=== PATIENT | male | born 1950 | race Caucasian/White ===

== ENCOUNTER 2017-06-24 17:59 | Emergency (ER) | payer OTHER ==
[~2017-06-24] VITALS: Ht 175.3 cm; Wt 65.0 kg
[2017-06-24 18:00] VITALS: BP 136/76; PULSE 114; RESP 20; TEMP 98.6; O2SAT 100
[2017-06-24] MEDS ORDERED: TAMS5CAP PO (19:41)
[2017-06-24] MEDS ORDERED: SODIUM CHLORIDE 0.9% FLUSH 10 ML FLUSH IVF PRN (19:45)
[2017-06-24 20:00] VITALS: O2SAT 99
[2017-06-24] MEDS ORDERED: SODIUM CHLOR 0.9% 250 ML INJ 250 ML IV ONE (20:00)
--- NOTE | 2017-06-24 20:01 | PD ---
HPI Chief Complaint: Abnormal Results Time Seen by Provider: 19:38 Travel History International Travel<30 days: No Contact w/Intl Traveler<30days: No Traveled to known affect area: No History of Present Illness HPI 66 y/o male presents with hematuria for the past month. He states that he has a bladder mass that he supposed to have surgery on with Dr. Greenberg soon but was told to come here given he had a low blood level. His states that his hemoglobin was 8.2. He notes that he feels tired and get short of breath when he walks. He states he's also been having to take medication to help him go to the bathroom because he is constipated. He denies any other specific concurrent complaints. Location: generalized Quality: low Severity: 8.2 Context: bladder mass Modifying Factors: worse with movement Associated sign and symptoms: Generally weak, short of breath PFSH Social History Tobacco Use: No (unknown) Allergies-Medications (Allergen,Severity, Reaction): Coded Allergies: ibuprofen (Verified Allergy, Unknown, 06/24/17) Reported Meds & Prescriptions Reported Meds & Active Scripts Active Reported Flomax (Tamsulosin HCl) 0.4 Mg Cap 0.4 Mg PO HS Review of Systems Except as stated in HPI: all other systems reviewed are Neg Physical Exam Narrative GENERAL: Well-nourished, well-developed patient. SKIN: Warm and dry. pale HEAD: Normocephalic and atraumatic. EYES: No injection or drainage. ENT: No nasal drainage noted. NECK: Supple, trachea midline. CARDIOVASCULAR: Regular rate and rhythm RESPIRATORY: no increased effort. No accessory muscle use. GASTROINTESTINAL: Abdomen soft, non-tender, nondistended. NEUROLOGICAL: Awake and alert. moves all extremities and sensory grossly within normal limits. Normal speech. Data Data Last Documented VS Vital Signs Date Time Temp Pulse Resp B/P (MAP) Pulse Ox O2 Delivery O2 Flow Rate FiO2 06/25/17 01:27 94 18 120/82 (95) 100 Room Air 06/25/17 00:44 98.3 Orders Orders Basic Metabolic Panel (Bmp) (06/24/17 19:39) Complete Blood Count With Diff (06/24/17 19:39) Prothrombin Time / Inr (Pt) (06/24/17 19:39) Act Partial Throm Time (Ptt) (06/24/17 19:39) Type And Screen (06/24/17 19:39) Ecg Monitoring (06/24/17 19:39) Iv Access Insert/Monitor (06/24/17 19:39) Oximetry (06/24/17 19:39) Sodium Chloride 0.9% Flush (Ns Flush) (06/24/17 19:45) Red Blood Cells (Rbc) (06/24/17 19:47) Blood Product Administration (06/24/17 19:47) Sodium Chlor 0.9% 250 Ml Inj (Ns 250 Ml (06/24/17 20:00) Urinalysis - C+S If Indicated (06/24/17 19:49) Urine Culture (06/24/17 20:45) Ed Discharge Order (06/25/17 02:54) Labs Laboratory Tests Test 06/24/17 19:50 06/24/17 20:45 White Blood Count 8.9 TH/MM3 Red Blood Count 3.18 MIL/MM3 Hemoglobin 8.4 GM/DL Hematocrit 26.5 % Mean Corpuscular Volume 83.3 FL Mean Corpuscular Hemoglobin 26.5 PG Mean Corpuscular Hemoglobin Concent 31.8 % Red Cell Distribution Width 18.0 % Platelet Count 450 TH/MM3 Mean Platelet Volume 6.7 FL Neutrophils (%) (Auto) 70.6 % Lymphocytes (%) (Auto) 17.5 % Monocytes (%) (Auto) 8.6 % Eosinophils (%) (Auto) 1.9 % Basophils (%) (Auto) 1.4 % Neutrophils # (Auto) 6.3 TH/MM3 Lymphocytes # (Auto) 1.6 TH/MM3 Monocytes # (Auto) 0.8 TH/MM3 Eosinophils # (Auto) 0.2 TH/MM3 Basophils # (Auto) 0.1 TH/MM3 CBC Comment DIFF FINAL Differential Comment Prothrombin Time 10.8 SEC Prothromb Time International Ratio 1.1 RATIO Activated Partial Thromboplast Time 28.2 SEC Blood Urea Nitrogen 16 MG/DL Creatinine 1.10 MG/DL Random Glucose 119 MG/DL Calcium Level 8.7 MG/DL Sodium Level 136 MEQ/L Potassium Level 3.9 MEQ/L Chloride Level 102 MEQ/L Carbon Dioxide Level 28.0 MEQ/L Anion Gap 6 MEQ/L Estimat Glomerular Filtration Rate 67 ML/MIN Urine Color RED Urine Turbidity HAZY Urine pH 5.5 Urine Specific [place] 1.028 Urine Protein 100 mg/dL Urine Glucose (UA) NEG mg/dL Urine Ketones TRACE mg/dL Urine Occult Blood LARGE Urine Nitrite NEG Urine Bilirubin NEG Urine Urobilinogen 2.0 MG/DL Urine Leukocyte Esterase TRACE Urine RBC /hpf Urine WBC 25 /hpf Urine Bacteria OCC /hpf Urine Mucus FEW /lpf Microscopic Urinalysis Comment CULTURE INDICATED MDM Medical Decision Making Medical Screen Exam Complete: Yes Emergency Medical Condition: Yes Medical Record Reviewed: Yes (pmh confirmed) Interpretation(s) CBC & BMP Diagram 06/24/17 19:50 Calcium Level 8.7 ua with hematuria, given amount of blood will not start antibiotics as small amount of white blood cells are likely related to that and not an active infection-can follow culture Differential Diagnosis anemia, renal failure, uti Narrative Course will check labs, transfuse one unit and reevaluate Labs show anemia. We'll give 1 unit given symptomatic and reassess Patient observed for 3 hours post transfusion and without any transfusion reaction. Vitals stable. Patient wanting to go. Given return instructions Physician Communication Physician Communication dr greenberg states he will see patient in ed as he is here but no need to follow dr greenberg states can give one unit and discharge patient, will follow Diagnosis Primary Impression: Anemia Qualified Codes: D64.9 - Anemia, unspecified Additional Impressions: Hematuria Qualified Codes: R31.9 - Hematuria, unspecified Bladder mass Patient Instructions: General Instructions Additional Instructions: return as needed, follow with dr greenberg as scheduled Med/Other Pt SpecificInfo: No Change to Meds Disposition: 01 DISCHARGE HOME Condition: Stable Yvonne Bal MD Jun 24, 2017 20:01
[2017-06-24 20:12] LABS: AUTOMATED NEUTROPHIL # 6.3 TH/MM3 (1.8-7.7); BASOPHIL # 0.1 TH/MM3 (0-0.2); BASOPHIL % 1.4 % (0.0-2.0); EOSINOPHIL # 0.2 TH/MM3 (0-0.4); EOSINOPHIL % 1.9 % (0.0-4.0); HEMATOCRIT 26.5 % (39.0-51.0); HEMO FLAGS DIFF FINAL; LYMPH % 17.5 % (9.0-44.0); LYMPHOCYTE # 1.6 TH/MM3 (1.0-4.8); MEAN CELL VOLUME 83.3 FL (80.0-100.0); MEAN CORPUSCULAR HEMOGLOBIN 26.5 PG (27.0-34.0); MEAN CORPUSCULAR HGB CONC 31.8 % (32.0-36.0); MONO % 8.6 % (0.0-8.0); NEUT % 70.6 % (16.0-70.0); PLATELET COUNT 450 TH/MM3 (150-450); RED BLOOD COUNT 3.18 MIL/MM3 (4.50-5.90); WHITE BLOOD COUNT 8.9 TH/MM3 (4.0-11.0)
[2017-06-24 20:21] LABS: APTT (PATIENT) 28.2 SEC (24.3-30.1); INTERNATIONAL NORMALIZED RATIO 1.1 RATIO; PROTHROMBIN TIME - PATIENT 10.8 SEC (9.8-11.6)
[2017-06-24 20:26] LABS: POTASSIUM 3.9 MEQ/L (3.5-5.1)
[2017-06-24 22:15] LABS: BACTERIA, URINE OCC /hpf; BLOOD, URINE LARGE (NEG); COMMENT (UR) CULTURE INDICATED; CULTURE IF INDICATED CULTURE INDICATED; GLUCOSE,URINE NEG (NEG); KETONE, URINE TRACE mg/dL (NEG); MUCUS URINE FEW /lpf (OCC); NITRITE,URINE NEG (NEG); PH, URINE 5.5 (5.0-8.5)
[2017-06-24 22:16] LABS: URINE COLOR RED (YELLW/STRAW)
[2017-06-24 22:18] VITALS: BP 114/75; PULSE 96; RESP 18; TEMP 98.5; O2SAT 96
[2017-06-24 22:30] VITALS: BP 109/67; PULSE 94; RESP 18; TEMP 98.7
[2017-06-24 23:06] VITALS: BP 125/72; PULSE 100; RESP 18; O2SAT 100
[2017-06-25 00:32] VITALS: BP 125/71; PULSE 96; RESP 18; TEMP 98.2; O2SAT 99
[2017-06-25 00:44] VITALS: BP 125/71; PULSE 97; RESP 19; TEMP 98.3
[2017-06-25 01:27] VITALS: BP 120/82; PULSE 94; RESP 18; O2SAT 100
== END 2017-06-25 03:19 | disposition home or self-care (01) ==
LOC: NEPC 17:59
DX: D64.9 Anemia, unspecified (principal); R31.9 Hematuria, unspecified; N32.9 Bladder disorder, unspecified; B96.89 Other specified bacterial agents as the cause of diseases classified elsewhere; Z88.6 Allergy status to analgesic agent; Z79.899 Other long term (current) drug therapy
CPT/HCPCS: 36430; 80048; 81001; 85025; 85610; 85730; 86850; 86900; 86901; 86920; 87086; 96360; 99284; J7050; P9016

== ENCOUNTER 2017-09-19 06:44 | Day surgery (SDC) | payer OTHER ==
[2017-09-19] VITALS (7 sets, daily range): BP systolic 126–152; BP diastolic 71–86; PULSE 61–84; RESP 18–20; TEMP 97.4–97.6; O2SAT 93–98
[~2017-09-19] VITALS: Ht 177.8 cm; Wt 60.5 kg
[~2017-09-19 06:44] MED LIST: TAMS5CAP PO
[2017-09-19] MEDS ORDERED: ALEV220T14 PO (07:18)
[2017-09-19] MEDS ORDERED: OXYB5TAB8 PO (07:18)
[2017-09-19 07:55] LABS: AUTOMATED NEUTROPHIL # 5.6 TH/MM3 (1.8-7.7); BASOPHIL # 0.1 TH/MM3 (0-0.2); BASOPHIL % 1.2 % (0.0-2.0); EOSINOPHIL # 0.3 TH/MM3 (0-0.4); EOSINOPHIL % 2.9 % (0.0-4.0); HEMATOCRIT 31.8 % (39.0-51.0); HEMOGLOBIN 10.2 GM/DL (13.0-17.0); LYMPH % 23.9 % (9.0-44.0); LYMPHOCYTE # 2.1 TH/MM3 (1.0-4.8); MEAN CORPUSCULAR HEMOGLOBIN 22.7 PG (27.0-34.0); MEAN PLATELET VOLUME 6.4 FL (7.0-11.0); MONO % 9.1 % (0.0-8.0); MONOCYTE # 0.8 TH/MM3 (0-0.9); NEUT % 62.9 % (16.0-70.0); PLATELET COUNT 349 TH/MM3 (150-450); RED BLOOD COUNT 4.48 MIL/MM3 (4.50-5.90); RED CELL DISTRIBUTION WIDTH 22.8 % (11.6-17.2); WHITE BLOOD COUNT 8.9 TH/MM3 (4.0-11.0)
[2017-09-19] MEDS ORDERED: VANCOMYCIN 1000 MG/NS 250 ML - implanted port/tunneled catheter IV SCH ×2 (08:00)
[2017-09-19] MEDS ORDERED: ceFAZolin 2 GM PREMIX 50 ML - implanted port/tunneled catheter insertion IV SCH (08:00)
[2017-09-19] MEDS ORDERED: SODIUM CHLORIDE 0.9% 1000 ML IV SCH (08:00)
[2017-09-19] MEDS ORDERED: POVIDONE IODINE 5% (ANTISEPSIS KIT) 4 APPLICATIONS EACH NARE SCH (08:00)
[2017-09-19] MEDS ORDERED: CHLORHEXIDINE GLUCONATE 2 % 1 PACK (2 CLOTHS) TOPICAL SCH (08:00)
[2017-09-19 08:05] LABS: INTERNATIONAL NORMALIZED RATIO 1.1 RATIO; PROTHROMBIN TIME - PATIENT 10.7 SEC (9.8-11.6)
[2017-09-19 08:41] LABS: ACANTHOCYTES OCC (NORMAL); OVALOCYTES 1+ (NORMAL)
[2017-09-19] MEDS ORDERED: MIDAZOLAM HCL 5 MG/5 ML VIAL ONE (08:49)
[2017-09-19] MEDS ORDERED: fentaNYL CITRATE 250 MCG/5 ML AMP ONE (08:49)
[2017-09-19] MEDS ORDERED: LIDOCAINE 1%/EPINEPHrine 1:100,000 SOLN 30 ML VIAL ONE (08:55)
--- NOTE | 2017-09-19 09:53 | PD.RAD ---
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
[2017-09-19] MEDS ORDERED: SODIUM CHLORIDE 0.9% FLUSH 10 ML FLUSH IVF PRN (10:00)
--- NOTE | 2017-09-19 12:43 | RADRPT ---
EXAM DATE/TIME: 09/19/2017 08:45 [facility] COMPARISON: No previous studies available for comparison. INDICATIONS : Patient presents with bladder cancer in need of port placment for treatment. MEDICAL HISTORY : Hematuria COPD Bladder Cancer BPH Anemia SURGICAL HISTORY : Cystoscopy TURBT Cardiac Cath ENCOUNTER: Initial ACUITY: 4-6 months PAIN SCORE: 0/10 LOCATION: N/A FLUORO TIME: 0.5 minutes IMAGE SERIES: 1 SEDATION TIME: 30 minutes ACCESS: Right internal jugular vein SEDATION: 1.) 3 mg midazolam (Versed) IV 2.) 150 mcg fentanyl (Sublimaze) IV Prophylactic antibiotics were administered with appropriate pre-procedure timing. Vancomycin within 2 hours of procedure, Ancef (or alternative) within 1 hour of procedure. DEVICE: 1. 8 Pashto single lumen Bard Power Port PROCEDURE : 1. Continuous pulse oximetry and EKG monitoring. 2. Intravenous conscious sedation. 3. Ultrasound guidance for venous access. 4. Fluoroscopic guided implantable central venous port placement. The patient was placed supine. The neck was prepped in sterile fashion. Full sterile technique was u sed, including cap, mask, sterile gloves and gown, and a large sterile sheet. Hand hygiene and 2% ch lorhexidine Betadine was utilized per protocol for cutaneous antisepsis with appropriate dry time for site. Sterile gel and sterile probe cover were utilized for ultrasound guidance. The skin and sub cutaneous tissues were infiltrated with local anesthetic solution. Under direct ultrasound guidance, central venous access was accomplished in the targeted vessel. The ultrasound images depicting access guidance were stored and saved to PACS for permanent record. A s ubcutaneous pocket was created using blunt dissection. The port was introduced to the pocket. The c atheter tubing was fed through a subcutaneous tunnel to the venotomy site. The catheter tubing was c ut to a suitable length and then was introduced through a valved Peel-Away sheath and positioned with catheter tubing tip at the cavo-atrial junction level. The pocket incision was closed with subcutic ular Vicryl suture. Steri-Strips were applied. The port was flushed and locked with heparin solutio n per protocol. Sterile dressing was applied to the site. The patient tolerated the procedure well. Conscious sedation was performed with the prescribed dosages and duration as above in the presence of an independent trained radiology nurse to assist in the monitoring of the patient. EKG and oximetry remained stable throughout the procedure. The patient tolerated the procedure well and there were no complications. The patient was sent to post anesthesia recovery in stable condition. CONCLUSION: Uncomplicated ultrasound and fluoroscopic guided implanted central venous port catheter placement as described in detail above. An 8 Pashto Power port was placed. Cyrus Dykes MD on September 19, 2017 at 12:42 Board Certified Radiologist. This report was verified electronically.
== END 2017-09-19 12:20 | disposition home or self-care (01) ==
LOC: HROP 06:44 → HRIP 06:45 → HROP 12:20
PROVIDERS: ATTEND Internal Medicine
DX: C67.9 Malignant neoplasm of bladder, unspecified (principal); C78.00 Secondary malignant neoplasm of unspecified lung; D64.9 Anemia, unspecified; N40.0 Benign prostatic hyperplasia without lower urinary tract symptoms; R31.9 Hematuria, unspecified; J44.9 Chronic obstructive pulmonary disease, unspecified; Z01.818 Encounter for other preprocedural examination
CPT/HCPCS: 36561; 76937; 77001; 85025; 85610; 85730; 99152; 99153; C1788; J0690; J1642; J2250; J3010; J7030

== ENCOUNTER 2018-02-19 09:36 | Inpatient (IN) ==
[2018-02-19 10:29] LABS: Baso % (Auto) 0.1 % (0.0-2.0); Eos # (Auto) 0.1 th/mm3 (0.0-0.4); Eos % (Auto) 0.2 % (0.0-4.0); Lymph # (Auto) 0.6 th/mm3 (1.0-4.8); Lymph % (Auto) 2.4 % (9.0-44.0); Mean Corpuscular Hemoglobin 35.1 pg (27.0-34.0); Mean Corpuscular Volume 100.1 fL (80.0-100.0); Mean Platelet Volume 7.2 fL (7.0-11.0); Mono # (Auto) 0.1 th/mm3 (0.0-0.9); Mono % (Auto) 0.2 % (0.0-8.0); Neut # (Auto) 24.7 th/mm3 (1.8-7.7); Neut % (Auto) 97.1 % (16.0-70.0); Red Blood Count 1.96 mil/mm3 (4.50-5.90); Red Cell Distribution Width 21.3 % (11.6-17.2); White Blood Count 25.5 th/mm3 (4.0-11.0)
[2018-02-19 10:41] LABS: Hematocrit 19.6 % (39.0-51.0); Hemoglobin 6.9 gm/dL (13.0-17.0); Platelet Count 11 th/mm3 (150-450)
[2018-02-19 10:53] LABS: Alanine Aminotransferase 9 U/L (12-78); Alkaline Phosphatase 70 U/L (45-117); Anion Gap 11 meq/L (5-15); Aspartate Aminotransferase 12 U/L (15-37); Blood Urea Nitrogen 12 mg/dL (7-18); Calcium 5.6 mg/dL (8.5-10.1); Chloride 112 meq/L (98-107); Glomerular Filtration Rate Greater Than 89 mL/min (>89); Glucose,Random 88 mg/dL (74-106); Sodium 143 meq/L (136-145); Total Protein 4.4 g/dL (6.4-8.2)
--- NOTE | 2018-02-19 10:54 | ED ---
HPI General Chief complaint: Urogenital-Male Stated complaint: Trouble Urinating/Clots coming out of penis Time Seen by Provider: 02/19/18 09:53 Source: patient and family Mode of arrival: ambulatory Limitations: no limitations History of Present Illness HPI narrative: Patient is a 67-year-old male with history of bladder cancer, last chemo was Tuesday, who comes in complaining of inability to urinate. He says he last urinated at midnight and he then passed a large blood clot. He says since then he really has not been able to pass any urine. He complains of pain to his bladder. He says he has had chills, but no fever. He has been receiving Neupogen, he was supposed to receive a dose today, but did not have it. He denies any chest pain or shortness of breath. He says he had a procedure done with urology on Tuesday to look for any more tumors in his bladder. He has been on Cipro since then. Severity is moderate. Related Data Home Medications Medication Instructions Recorded Confirmed Neupogen 02/19/18 Zyrtec 02/19/18 enoxaparin [Lovenox] 60 mg SUB-Q Q12H 02/19/18 02/19/18 ondansetron HCl [Zofran] 4 mg PO Q6-8H PRN 02/19/18 02/19/18 oxybutynin chloride 02/19/18 oxycodone-acetaminophen [Percocet] 1 tab PO Q4-6H PRN 02/19/18 02/19/18 tamsulosin [Flomax] 0.4 mg PO DAILY 02/19/18 02/19/18 Allergies Allergy/AdvReac Type Severity Reaction Status Date / Time ibuprofen Allergy Unknown Arrhythmias Verified 02/19/18 09:38 Review of Systems Except as stated in HPI: all other systems reviewed are negative Constitutional Reports chills and Denies fever(s) ENT Denies dizziness Cardiovascular Denies chest pain and Denies dyspnea Respiratory Denies cough Gastrointestinal Reports abdominal pain, Denies nausea and Denies vomiting Genitourinary Reports hematuria and Reports difficulty urinating Musculoskeletal Denies myalgias and Denies arthralgias Integumentary/Breasts Denies change in pigmentation Neurologic Denies frequent falls and Denies focal weakness [facility] Medical History Medical History Bladder cancer (Acute) Social History Social History Substance History: No History of Abuse Smoking Status: Current every day smoker Tobacco Type: Cigarettes How Often Do You Have a Drink Containing Alcohol: Never Recent Travel in [facility] within the Last 8 Weeks: No Recent Out of Country Travel within the Last 8 Weeks: No Immunization History Tetanus Immunization: Unsure Hx Influenza Vaccine This Season: No Exam Narrative Exam Narrative: GENERAL: Awake and alert, in no acute distress. SKIN: Focused skin assessment warm/dry. No wounds or signs of infection. HEAD: Atraumatic. Normocephalic. EYES: Pupils equal and round. No scleral icterus. ENT: Mucous membranes pink and moist. NECK: Trachea midline. No JVD. CARDIOVASCULAR: Regular rate and rhythm. No murmur appreciated. RESPIRATORY: No accessory muscle use. Clear to auscultation. Breath sounds equal bilaterally. GASTROINTESTINAL: Bladder distended and tender to palpation. MUSCULOSKELETAL: No obvious deformities. No clubbing. No cyanosis. No edema. NEUROLOGICAL: Awake and alert. No obvious cranial nerve deficits. Motor grossly within normal limits. Normal speech. PSYCHIATRIC: Appropriate mood and affect; insight and judgment normal. Course Hospital Course: IV established, labs sent. Starks catheter placed. Reevaluation(s) Reevaluation #1: Patient is feeling better after Starks catheter placed. It is draining, but it is straight blood. Hemoglobin is 6.9 and platelet count is 11. Transfusions ordered. Time: 10:47 Initial Documented Vital Signs Temperature 97.8 F 02/19/18 09:39 Pulse Rate 118 H 02/19/18 09:39 Respiratory Rate 18 02/19/18 09:39 Blood Pressure 137/79 02/19/18 09:39 Pulse Oximetry 100 02/19/18 09:39 Last Documented Vital Signs Temperature 97.8 F 02/19/18 09:39 Pulse Rate 84 02/19/18 11:20 Respiratory Rate 20 02/19/18 11:20 Blood Pressure 124/72 02/19/18 11:20 Pulse Oximetry 97 02/19/18 11:20 Medical Decision Making MDM Narrative Medical decision making narrative: Patient is a 67-year-old male with history who comes in due to difficulty urinating. Exam shows a distended, tender bladder. Starks catheter placed this is draining blood. Labs sent show a hemoglobin of 6.9, platelet count of 11. White blood cell count is 25. Patient is receiving Neupogen, which could account for the elevated white blood cell count. However he has been having chills, given a dose of antibiotics. Transfusions ordered for packed red blood cells and platelets. Potassium was also low at 2.8, this was replaced. I spoke with oncology, Dr. Martin, who advises transfusions and holding Lovenox. He will see the patient. Patient will be admitted for further management. Differential Diagnosis Differential Diagnosis: Urinary obstruction versus hematuria versus UTI versus infection Medical Records Medical records reviewed: Yes I reviewed the patient's medical records. Lab Data Lab results reviewed: Yes I reviewed the patient's lab results. Result diagrams: 02/19/18 10:26 02/19/18 10:26 Lab Results 02/19/18 02/19/18 02/19/18 Range/Units 10:26 10:26 11:05 CBC w Diff Slide review pending WBC 25.5 H (4.0-11.0) th/mm3 RBC 1.96 L (4.50-5.90) mil/mm3 Hgb 6.9 L* (13.0-17.0) gm/dL Hct 19.6 L* (39.0-51.0) % MCV 100.1 H (80.0-100.0) fL MCH 35.1 H (27.0-34.0) pg MCHC 35.0 (32.0-36.0) % RDW 21.3 H (11.6-17.2) % Plt Count 11 L* D (150-450) th/mm3 MPV 7.2 (7.0-11.0) fL Neut % (Auto) 97.1 H (16.0-70.0) % Lymph % (Auto) 2.4 L (9.0-44.0) % [place] % (Auto) 0.2 (0.0-8.0) % Eos % (Auto) 0.2 (0.0-4.0) % Baso % (Auto) 0.1 (0.0-2.0) % Neut # (Auto) 24.7 H (1.8-7.7) th/mm3 Lymph # (Auto) 0.6 L (1.0-4.8) th/mm3 [place] # (Auto) 0.1 (0.0-0.9) th/mm3 Eos # (Auto) 0.1 (0.0-0.4) th/mm3 Baso # (Auto) 0.0 (0.0-0.2) th/mm3 WBC Differential Manual diff final Seg Neuts % (Manual) 88 H (16-70) % Band Neuts % (Manual) 11 H (0-6) % Lymphocytes % (Manual) 1 L (9-44) % Abs Neuts (Manual) 25.2 H (1.8-7.7) th/mm3 Differential Comment . Dohle Bodies Present H (None) Platelet Estimate Rare L (Normal) Platelet Morphology Normal (Normal) RBC Morphology Normal (Normal) Rouleaux Present H (None) Sodium 143 (136-145) meq/L Potassium 2.8 L* (3.5-5.1) meq/L Chloride 112 H (98-107) meq/L Carbon Dioxide 20.0 L (21.0-32.0) meq/L Anion Gap 11 (5-15) meq/L BUN 12 (7-18) mg/dL Creatinine 0.63 (0.60-1.30) mg/dL Estimated GFR Greater than 89 (>89) mL/min Random Glucose 88 (74-106) mg/dL Calcium 5.6 L* (8.5-10.1) mg/dL Prot Corrected Calcium 6.8 L* (8.5-10.1) mg/dL Total Bilirubin 0.3 (0.2-1.0) mg/dL AST 12 L (15-37) U/L ALT 9 L (12-78) U/L Alkaline Phosphatase 70 (45-117) U/L Total Protein 4.4 L (6.4-8.2) g/dL Albumin 2.0 L (3.4-5.0) g/dL MTS Gel Crossmatch See Detail Discharge Plan Physicians Team ED Provider: Lesa Vincent Primary Care Provider: Yunier Joseph Rxs /Orders / Referrals /Forms Prescriptions: No Action ondansetron HCl [Zofran] 4 mg Tablet 4 mg PO Q6-8H PRN (Reason: Nausea) RF: 0 oxycodone-acetaminophen [Percocet] 5-325 mg Tablet 1 tab PO Q4-6H PRN (Reason: Nausea) RF: 0 tamsulosin [Flomax] 0.4 mg Capsule,Extended Release 24hr 0.4 mg PO DAILY RF: 0 enoxaparin [Lovenox] 60 mg/0.6 mL Syringe 60 mg SUB-Q Q12H RF: 0 Neupogen RF: 0 Zyrtec RF: 0 oxybutynin chloride RF: 0 Discharge Interventions Interventions: Vital Signs Last Done: 02/19/18 11:20 Status ED Status: With Doctor
[2018-02-19 10:57] LABS: Potassium 2.8 meq/L (3.5-5.1)
[2018-02-19] MEDS ORDERED: Sodium Chlor 0.9% Inj 250 ML IV.SIG SCH (11:00)
[2018-02-19 11:03] LABS: Dohle Bodies Present; Lymphocytes 1 % (9-44); RBC Morphology Normal (Normal); Rouleaux Present
[2018-02-19 11:04] LABS: Platelet Estimate Rare (Normal); Platelet Morphology Normal (Normal)
[2018-02-19] MEDS ORDERED: Potassium Chlor 10 mEq Premix 10 MEQ/100 ML PIGGYBACK IV.SIG ONE (11:30)
--- NOTE | 2018-02-19 11:33 | XR ---
EXAM DATE: 02/19/2018 11:22 AM EDT AGE/SEX: 67 years / Male INDICATIONS: Cough CLINICAL DATA: This is the patient's initial encounter. Patient reports that signs and symptoms have been present for 1 day and indicates a pain score of 0/10. MEDICAL/SURGICAL HISTORY: . Hematuria COPD Bladder Cancer BPH Anemia . Cystoscopy TURBT Cardi ac Cath,Port COMPARISON: POI, XR CHEST PA AND LAT, 01/24/2017. . FINDINGS: The lungs are clear without infiltrate, nodule, or mass. There is no appreciable pleural effusion fo r technique. Heart and mediastinum are unremarkable. Right IJ [id number] is present with tip ove rlapping the expected region of the SVC. CONCLUSION: No acute cardiopulmonary disease. Electronically signed by: Jeannine Velasquez MD 02/19/2018 11:31 AM EDT
[2018-02-19] MEDS ORDERED: Temazepam 15 MG Capsule PO PRN (12:06)
[2018-02-19] MEDS ORDERED: Zolpidem Tartrate 5 MG Tablet PO PRN (12:06)
--- NOTE | 2018-02-19 12:48 | P.HP ---
History of Present Illness Primary Care Physician: Yunier Joseph MD History of Present Illness: This is a 67-year-old male patient with a known diagnosis of stage IV urothelial cancer who presents to the ED with anemia, severe thrombocytopenia, urinary retention and hematuria. Patient underwent cystoscopy by Dr. Zhao on Tuesday 02/13 to assess for any residual disease, for which his Lovenox was on hold. Patient was sent home with FC and a prescription for Cipro x 3 days. Has been doing well with only scant blood in urine. Unfortunately, around 2330 last evening on 02/19 he complaints of worsening hematuria and passing a large clot with associated urinary retention and pain in his bladder. Patient denies any recent fevers, cough, shortness of breath, nausea, vomiting, diarrhea, dysuria, black or blood in stools. Last BM was yesterday. He does admit to a good appetite and has been eating well. At the time of assessment patient is lying in bed comfortably with at bedside. Starks catheter is presently draining leonor red blood with no presence of clots at this time. I spoke with Dr. Zhao who would like the Starks cath to be changed to a 22 or 24 japanese cath and CBI to be started. Oncologist has also been consulted. Upon presentation patient has leukocytosis with WBC 25.5 and left band shift, severe anemia and thrombocytopenia, hemoglobin 56.9/hematocrit 19.6/platelets 11 as well as multiple electrolyte abnormalities including K 2.8, mag 1.0, and PCC 6.8. Inpatient Certification: I certify that the inpatient services were ordered in accordance with Medicare regulations governing the order. This includes certification that hospital inpatient services are reasonable and necessary and in the case of services not specified as inpatient-only under 42 CFR 419.22(n), that they are appropriately provided as inpatient services in accordance to with the 2-midnight benchmark under 43 CFR 412.3(e) Estimated Total Length of Stay (Days): 4 Plans for Post Hospital Care: Not yet determined PMFSH - History History Provided By: Patient - Medical History Medical History: Medical History (Last Reviewed 02/19/18 @ 11:20 by Lesa Vincent MD) Bladder cancer - Tobacco History Tobacco Use In Past 30 Days: Yes Smoking Status: Current every day smoker Tobacco Type: Cigarettes - Alcohol History How Often Do You Have a Drink Containing Alcohol: Never - Substance Use History Substance History: No History of Abuse - Travel History Recent Travel in the [place] Within the Last 8 Weeks: No Recent Travel Out of the Country Within the Last 8 Weeks: No - Immunization History Tetanus Immunization: Unsure Hx Influenza Vaccine This Season: No Medications and Allergies Active Medications: Active Medications Sodium Chloride (Ns Inj) 250 mls @ 15 mls/hr IV.SIG ONCE HARMAN Stop: 02/20/18 03:39 Calcium Gluconate 2 gm/ Sodium (Chloride) 120 mls @ 120 mls/hr IV.SIG ONCE ONE Stop: 02/19/18 13:44 Lactulose (Lactulose Liq) 30 ml PO DAILY PRN PRN Reason: SEVERE CONSITIPATION Tamsulosin HCl (Flomax) 0.4 mg PO DAILY HARMAN Temazepam (Restoril) 15 mg PO HS PRN PRN Reason: INSOMNIA Zolpidem Tartrate (Ambien) 5 mg PO HS PRN PRN Reason: INSOMNIA Allergies Allergy/AdvReac Type Severity Reaction Status Date / Time ibuprofen Allergy Unknown Arrhythmias Verified 02/19/18 09:38 Home Medications Medication Instructions Recorded Confirmed Type Neupogen 02/19/18 History Zyrtec 02/19/18 History enoxaparin [Lovenox] 60 mg SUB-Q Q12H 02/19/18 02/19/18 History ondansetron HCl [Zofran] 4 mg PO Q6-8H PRN 02/19/18 02/19/18 History oxybutynin chloride 02/19/18 History oxycodone-acetaminophen [Percocet] 1 tab PO Q4-6H PRN 02/19/18 02/19/18 History tamsulosin [Flomax] 0.4 mg PO DAILY 02/19/18 02/19/18 History Exam Vital signs: Vital Signs 02/19/18 09:39 02/19/18 11:20 02/19/18 12:07 Temperature 97.8 F Pulse Rate 118 H 84 79 Respiratory Rate 18 20 20 Blood Pressure 137/79 124/72 124/70 Pulse Oximetry 100 97 Intake & Output 02/18/18 02/19/18 02/19/18 18:59 06:59 18:59 Weight 69.4 kg Results - Labs CBC & Chem 7: 02/19/18 10:26 02/19/18 10:26 Labs: Laboratory Results - last 24 hr 02/19/18 02/19/18 02/19/18 10:26 10:26 11:05 CBC w Diff Slide review pending WBC 25.5 H RBC 1.96 L Hgb 6.9 L* Hct 19.6 L* MCV 100.1 H MCH 35.1 H MCHC 35.0 RDW 21.3 H Plt Count 11 L* D MPV 7.2 Neut % (Auto) 97.1 H Lymph % (Auto) 2.4 L [place] % (Auto) 0.2 Eos % (Auto) 0.2 Baso % (Auto) 0.1 Neut # (Auto) 24.7 H Lymph # (Auto) 0.6 L [place] # (Auto) 0.1 Eos # (Auto) 0.1 Baso # (Auto) 0.0 WBC Differential Manual diff final Seg Neuts % (Manual) 88 H Band Neuts % (Manual) 11 H Lymphocytes % (Manual) 1 L Abs Neuts (Manual) 25.2 H Differential Comment . Dohle Bodies Present H Platelet Estimate Rare L Platelet Morphology Normal RBC Morphology Normal Rouleaux Present H Sodium 143 Potassium 2.8 L* Chloride 112 H Carbon Dioxide 20.0 L Anion Gap 11 BUN 12 Creatinine 0.63 Estimated GFR Greater than 89 Random Glucose 88 Calcium 5.6 L* Prot Corrected Calcium 6.8 L* Total Bilirubin 0.3 AST 12 L ALT 9 L Alkaline Phosphatase 70 Total Protein 4.4 L Albumin 2.0 L MTS Gel Crossmatch See Detail - Imaging Impressions Chest X-Ray 02/19/18 10:48 CONCLUSION: No acute cardiopulmonary disease. Caprini VTE Risk Assessment Caprini VTE Risk Assessment: Moderate/High Risk (score >= 2) Caprini Risk Assessment Model: Point Value = 1 Point Value = 2 Point Value = 3 Point Value = 5 Age 41-60 Minor surgery BMI > 25 kg/m2 Swollen legs Varicose veins or History of unexplained or recurrent spontaneous Oral contraceptives or hormone replacement Sepsis (< 1 month) Serious lung disease, including pneumonia (< 1 month) Abnormal pulmonary function Acute myocardial infarction Congestive heart failure (< 1 month) History of inflammatory bowel disease Medical patient at bed rest Age 61-74 Arthroscopic surgery Major open surgery (> 45 min) Laparoscopic surgery (> 45 min) Malignancy Confined to bed (> 72 hours) Immobilizing plaster cast Central venous access Age >= 75 History of VTE Family history of VTE Factor V Leiden Prothrombin [id number] Lupus anticoagulant Anticardiolipin antibodies Elevated serum homocysteine Heparin-induced thrombocytopenia Other congenital or acquired thrombophilia Stroke (< 1 month) Elective arthroplasty Hip, pelvis, or leg fracture Acute spinal cord injury (< 1 month) Prophylaxis Regimen: Total Risk Factor Score Risk Level Prophylaxis Regimen 0-1 Low Early ambulation 2 Moderate Order ONE of the following: *Sequential Compression Device (SCD) *Heparin 5000 units SQ BID 3-4 Higher Order ONE of the following medications: *Heparin 5000 units SQ TID *Enoxaparin/Lovenox 40 mg SQ daily (WT < 150 kg, CrCl > 30 mL/min) *Enoxaparin/Lovenox 30 mg SQ daily (WT < 150 kg, CrCl > 10-29 mL/min) *Enoxaparin/Lovenox 30 mg SQ BID (WT < 150 kg, CrCl > 30 mL/min) AND/OR *Sequential Compression Device (SCD) 5 or more Highest Order ONE of the following medications: *Heparin 5000 units SQ TID (Preferred with Epidurals) *Enoxaparin/Lovenox 40 mg SQ daily (WT < 150 kg, CrCl > 30 mL/min) *Enoxaparin/Lovenox 30 mg SQ daily (WT < 150 kg, CrCl > 10-29 mL/min) *Enoxaparin/Lovenox 30 mg SQ BID (WT < 150 kg, CrCl > 30 mL/min) AND *Sequential Compression Device (SCD) Assessment and Plan - Plan This is a 67-year-old male patient with: SIRS -Meets criteria with elevated WBC 25.5 with left shift/tachycardia. Lactic acid pending. Source likely urine. -Patient has been receiving Neupogen which could contribute to the leukocytosis. -Blood cultures have been ordered and pending. CXR reviewed and unremarkable. Awaiting UA. -Patient has been prescribed Cipro x 3 days from urologist status post cystoscopy, this has been completed. -Was given one time of Cefepime IV in ED. Will continue. -Monitor for infection. Afebrile at this time. Follow cultures. Stage IV Urothelial Cancer with metastasis to lung, retroperitoneum and bone Urinary retention Hematuria Anemia suspect secondary to acute blood loss from hematuria Severe thrombocytopenia -Patient's urologist is Dr. Zhao. Status post cystoscopy on 02/13. Urologist last seen on Tuesday02/17/18 when FC was removed. -Hemoglobin 6.9/Hematocrit 19.6/platelets 11 on presentation. ED ordered for 2 units PRBC as well as 2 units platelets to be infused. -Monitor H&H trends. -Will place three-way Starks catheter and initiate CBI. Monitor intake and output closely. Continue home Flomax. -Patient also follows with Dr. Ozuna, oncology, for his treatment of urothelial cancer. -Last treatment for chemo - Cisplatin/Gemzr - was on 02/09. Has been prescribed Neupogen injections since treatment. Await oncologist recommendations regarding restarting Neupogen. -Consult placed to urology and oncology, input and recommendations pending. -Pain control with home prescribed Percocet. EFORSE has been reviewed for patient, does take prescribed Percocet at home. Electrolyte abnormalities Severe hypokalemia Hypocalcemia Hypomagnesium -K2.8 today. ED ordered for supplemental potassium. -PCC 6.8. Order for Calcium gluconate 2 gram IV x 1. -Magnesium 1.0. Replace with 2 gram IV x 1. -Follow repeat BMP. Recent diagnosis of nonocclusive thrombus within the right subclavian and internal jugular veins -Was placed on Lovenox at home. This was held prior to cystoscopy with urology last Tuesday. -Will keep on hold secondary to active bleed. Tobacco abuse: Encouraged cessation. Nicotine patch offered. DVT Prophylaxis: SCDs. Hold chemical prophylaxis for now secondary to active hematuria.
[2018-02-19] MEDS ORDERED: Calcium Gluconate Inj 2 GM in Sodium Chlor 0.9% Inj 100 ML IV.SIG ONE (14:00)
[2018-02-19] MEDS: Mag Sulf 1 gm/100 ml Premix 100 ML IV.SIG SCH ×2 (15:31→16:18)
[2018-02-19] MEDS ORDERED: Morphine Sulfate Inj 2 MG/ML Vial IV.PUSH ONE (15:45)
[2018-02-19] MEDS ORDERED: Acetaminophen 325 MG Tablet PO ONE (16:00)
[2018-02-19] MEDS ORDERED: Belladonna Alkaloid/Opium 60 MG Supp RECTAL PRN (17:24)
--- NOTE | 2018-02-19 17:24 | P.CONURO ---
History of Present Illness Service: Urology Consult date: 02/19/18 Reason for Consult: Hematuria Primary Care Provider: Yunier Joseph MD Family Provider: Yunier Joseph MD Chief Complaint: Hematuria, Retention History of Present Illness: 67yo male with history of Urothelial carcinoma of the bladder, micropapillary variant s/p TURBT on 02/13/18 now admitted with hematuria and urinary retention. Patient underwent uneventful resection of the bladder on 02/13/18, no obvious visible tumor was noted within the bladder. He did well post-op with no persistent bleeding and delgado catheter was removed on Tuesday morning. He voided well following this, however last night and this morning patient began to experience increasing blood in the urine with pain and inability to void this am. He was admitted with a 24Fr [address] catheter inserted and CBI started. Urine remains bloody. No fevers. However Hgb at 6.9 and platelets low. Review of Systems All other systems reviewed negative except as stated in HPI Constitutional: Reports body ache(s), Denies fever(s) Ears, Nose, Mouth, and Throat: Denies abnormal hearing, Denies bleeding gums Cardiovascular: Denies chest pain Respiratory: Denies chest congestion, Denies cough Gastrointestinal: Reports abdominal pain Genitourinary: Reports blood in urine, Reports decreased urination, Reports difficulty urinating Musculoskeletal: Denies back pain Skin/Breast: Denies bleeding lesions Neurologic: Denies abnormal hearing Hematologic/Lymphatic: Reports easy bleeding PMFSH - History History Provided By: Patient - Medical History Medical History: Medical History (Last Updated 02/19/18 @ 17:18 by Yunior Zhao MD) Bladder cancer (Acute) - Surgical History Surgical History: Surgical History (Last Updated 02/19/18 @ 17:19 by Yunior Zhao MD) History of transurethral destruction of bladder lesion - Tobacco History Tobacco Use In Past 30 Days: Yes Smoking Status: Current every day smoker Tobacco Type: Cigarettes - Alcohol History How Often Do You Have a Drink Containing Alcohol: Never - Substance Use History Substance History: No History of Abuse - Travel History Recent Travel in the [facility] Within the Last 8 Weeks: No Recent Travel Out of the Country Within the Last 8 Weeks: No - Immunization History Tetanus Immunization: Unsure Hx Influenza Vaccine This Season: No Medications and Allergies Active Medications: Active Medications Chlorhexidine Gluconate (Chlorhexidine 2% Cloth) 3 pack TOPICAL DAILY@0400 HARMAN Stop: 02/25/18 03:59 Chlorhexidine Gluconate (Chlorhexidine 2% Cloth) 3 pack TOPICAL DAILY@0400 PRN PRN Reason: Extra cloth needed Stop: 02/25/18 03:59 Sodium Chloride (Ns Inj) 250 mls @ 15 mls/hr IV.SIG ONCE HARMAN Stop: 02/20/18 03:39 Last Admin: 02/19/18 16:18 Dose: 15 mls/hr Cefepime HCl 1,000 mg/ Sodium (Chloride) 100 mls @ 200 mls/hr IV.SIG Q8H HARMAN Lactulose (Lactulose Liq) 30 ml PO DAILY PRN PRN Reason: SEVERE CONSITIPATION Oxycodone/Acetaminophen (Percocet 5/325 Mg) 1 tab PO Q6H PRN PRN Reason: PAIN 6-10 Tamsulosin HCl (Flomax) 0.4 mg PO DAILY HARMAN Temazepam (Restoril) 15 mg PO HS PRN PRN Reason: INSOMNIA Zolpidem Tartrate (Ambien) 5 mg PO HS PRN PRN Reason: INSOMNIA Allergies Allergy/AdvReac Type Severity Reaction Status Date / Time ibuprofen Allergy Unknown Arrhythmias Verified 02/19/18 09:38 Home Medications Medication Instructions Recorded Confirmed Type Neupogen 02/19/18 History Zyrtec 02/19/18 History enoxaparin [Lovenox] 60 mg SUB-Q Q12H 02/19/18 02/19/18 History ondansetron HCl [Zofran] 4 mg PO Q6-8H PRN 02/19/18 02/19/18 History oxybutynin chloride 02/19/18 History oxycodone-acetaminophen [Percocet] 1 tab PO Q4-6H PRN 02/19/18 02/19/18 History tamsulosin [Flomax] 0.4 mg PO DAILY 02/19/18 02/19/18 History Physical Exam Vital Signs - 24 hr 02/19/18 09:39 02/19/18 11:20 02/19/18 12:07 Temperature 97.8 F Pulse Rate 118 H 84 79 Respiratory Rate 18 20 20 Blood Pressure 137/79 124/72 124/70 Pulse Oximetry 100 97 02/19/18 13:48 02/19/18 14:00 02/19/18 15:00 Temperature Pulse Rate 94 H 86 90 Respiratory Rate 21 10 L 20 Blood Pressure Pulse Oximetry 98 98 100 02/19/18 15:24 02/19/18 16:00 02/19/18 16:15 Temperature 98.6 F Pulse Rate 86 82 84 Respiratory Rate 21 16 24 Blood Pressure 144/77 H 146/92 H Pulse Oximetry 98 98 98 02/19/18 16:16 02/19/18 16:30 02/19/18 16:38 Temperature 98.5 F Pulse Rate 84 84 85 Respiratory Rate 18 Blood Pressure 145/92 H 132/74 Pulse Oximetry 97 98 Physical Exam: GENERAL: This is a well-nourished, well-developed patient, in no apparent distress. SKIN: No rashes, ecchymoses or lesions. Cool and dry. HEAD: Atraumatic. Normocephalic. EYES: Extraocular motions intact. No scleral icterus. No injection or drainage. ENT: Nose without bleeding, purulent drainage. Airway patent. NECK: Trachea midline. No JVD or lymphadenopathy. CARDIOVASCULAR: Normal pulse RESPIRATORY: nonlabored GASTROINTESTINAL: Abdomen soft, non-tender, nondistended. GENITOURINARY: 24Fr delgado in place, bloody urine MUSCULOSKELETAL: Extremities without clubbing, cyanosis, or edema.Negative Homans sign bilaterally. NEUROLOGICAL: Awake and alert. Motor and sensory grossly within normal limits. Normal speech. Lab results reviewed: Yes Laboratory Results - last 24 hr 02/19/18 02/19/18 02/19/18 10:26 10:26 10:30 CBC w Diff Slide review pending WBC 25.5 H RBC 1.96 L Hgb 6.9 L* Hct 19.6 L* MCV 100.1 H MCH 35.1 H MCHC 35.0 RDW 21.3 H Plt Count 11 L* D MPV 7.2 Neut % (Auto) 97.1 H Lymph % (Auto) 2.4 L [place] % (Auto) 0.2 Eos % (Auto) 0.2 Baso % (Auto) 0.1 Neut # (Auto) 24.7 H Lymph # (Auto) 0.6 L [place] # (Auto) 0.1 Eos # (Auto) 0.1 Baso # (Auto) 0.0 WBC Differential Manual diff final Seg Neuts % (Manual) 88 H Band Neuts % (Manual) 11 H Lymphocytes % (Manual) 1 L Abs Neuts (Manual) 25.2 H Differential Comment . Dohle Bodies Present H Platelet Estimate Rare L Platelet Morphology Normal RBC Morphology Normal Rouleaux Present H Sodium 143 Potassium 2.8 L* Chloride 112 H Carbon Dioxide 20.0 L Anion Gap 11 BUN 12 Creatinine 0.63 Estimated GFR Greater than 89 Random Glucose 88 Lactic Acid Calcium 5.6 L* Prot Corrected Calcium 6.8 L* Magnesium 1.0 L Total Bilirubin 0.3 AST 12 L ALT 9 L Alkaline Phosphatase 70 Total Protein 4.4 L Albumin 2.0 L Blood Type Antibody Screen MTS Gel Crossmatch Bld Prod Order Comment 02/19/18 02/19/18 02/19/18 11:05 14:38 15:30 CBC w Diff WBC RBC Hgb Hct MCV MCH MCHC RDW Plt Count MPV Neut % (Auto) Lymph % (Auto) [place] % (Auto) Eos % (Auto) Baso % (Auto) Neut # (Auto) Lymph # (Auto) [place] # (Auto) Eos # (Auto) Baso # (Auto) WBC Differential Seg Neuts % (Manual) Band Neuts % (Manual) Lymphocytes % (Manual) Abs Neuts (Manual) Differential Comment Dohle Bodies Platelet Estimate Platelet Morphology RBC Morphology Rouleaux Sodium Potassium 4.8 D Chloride Carbon Dioxide Anion Gap BUN Creatinine Estimated GFR Random Glucose Lactic Acid 0.8 Calcium Prot Corrected Calcium Magnesium Total Bilirubin AST ALT Alkaline Phosphatase Total Protein Albumin Blood Type O Positive Antibody Screen Negative MTS Gel Crossmatch See Detail Bld Prod Order Comment Result Diagrams: 02/19/18 10:26 02/19/18 15:30 Personally reviewed images: Yes Imaging: ITS Impressions Chest X-Ray 02/19/18 10:48 CONCLUSION: No acute cardiopulmonary disease. Assessment and Plan - Assessment (1) Anemia Code(s): D64.9 - Anemia, unspecified Status: Acute (2) Bladder cancer Code(s): C67.9 - Malignant neoplasm of bladder, unspecified Status: Acute - Plan -Hand irrigated delgado catheter with 1.5 L of normal saline. Several large clots removed. Irrigated until urine returned clear -CBI to remain wide open to maintain clear urine. May titrate down after urine remains clear for several hours -Hand irrigate periodically every 2-4hours and prn for clots -Maintain delgado catheter. Karin liat suppository and oxybutynin for bladder spasms -Continue broad spectrum antibiotics -Transfuse as needed per primary team -Oncology consult pending -Will follow
[2018-02-19] MEDS ORDERED: SODIUM CHLORIDE 0.9% IRRIGATION SCH (19:00)
[2018-02-19] MEDS ORDERED: Acetaminophen 325 MG Tablet PO PRN (19:47)
[2018-02-20 00:37] LABS: Hematocrit 26.8 % (39.0-51.0); Hemoglobin 9.1 gm/dL (13.0-17.0)
[2018-02-20] MEDS ORDERED: Chlorhexidine Gluconate 2% 1 Pack (2 Cloths) TOPICAL PRN (04:00)
[2018-02-20 04:41] LABS: Baso % (Auto) 0.2 % (0.0-2.0); Eos # (Auto) 0.1 th/mm3 (0.0-0.4); Eos % (Auto) 0.6 % (0.0-4.0); Hematocrit 27.3 % (39.0-51.0); Hemoglobin 9.1 gm/dL (13.0-17.0); Lymph # (Auto) 0.7 th/mm3 (1.0-4.8); Lymph % (Auto) 8.1 % (9.0-44.0); Mean Corpuscular HGB Conc 33.2 % (32.0-36.0); Mean Corpuscular Hemoglobin 31.4 pg (27.0-34.0); Mean Corpuscular Volume 94.6 fL (80.0-100.0); Mean Platelet Volume 7.6 fL (7.0-11.0); Mono % (Auto) 0.3 % (0.0-8.0); Neut # (Auto) 8.2 th/mm3 (1.8-7.7); Neut % (Auto) 90.8 % (16.0-70.0); Platelet Count 48 th/mm3 (150-450); Red Blood Count 2.89 mil/mm3 (4.50-5.90); Red Cell Distribution Width 24.9 % (11.6-17.2); White Blood Count 9.1 th/mm3 (4.0-11.0)
[2018-02-20 04:49] LABS: Dohle Bodies Present; Lymphocytes 8 % (9-44); Platelet Morphology Normal (Normal)
[2018-02-20 04:50] LABS: Dimorphic RBC Present
[2018-02-20] MEDS: Chlorhexidine Gluconate 2% 1 Pack (2 Cloths) TOPICAL SCH (04:50)
[2018-02-20 04:52] LABS: Carbon Dioxide 26.5 meq/L (21.0-32.0); Potassium 4.6 meq/L (3.5-5.1)
--- NOTE | 2018-02-20 09:16 | P.CON ---
History of Present Illness Service: Hematology/oncology Consult date: 02/20/18 Requesting Physician: Jennifer Grigsby Reason for Consult: Metastatic urothelial cell carcinoma of the bladder. Primary Care Provider: Yunier Joseph MD Family Provider: Yunier Joseph MD Chief Complaint: Hematuria, Retention History of Present Illness: Mr. Roque is a very pleasant 67-year-old man with a diagnosis of metastatic urothelial cell carcinoma of the bladder. He has been on palliative systemic therapy under the care of Dr. Ozuna. The patient had been on palliative systemic therapy with cisplatin and gemcitabine with his most recent cycle initiated on 02/08/2018. The patient has known metastatic disease to the bones, retroperitoneal lymph nodes and I believe to the lung parenchyma, the patient reports his disease had been responding well to treatment. On 02/17/2018 the patient underwent cystoscopy with cauterization of residual tumor. He reports having had near leonor blood and blood clots in his urine ever since. 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 He presented to [facility] [place] for further workup and management, he was noted to have bladder outflow obstruction and required manual irrigation of the bladder with removal of the blood clots. Additionally he was noted to be cytopenic at the time of presentation with hemoglobin of less than 7 g/dL and platelet count of 11,000. He underwent red cell transfusion and platelet transfusion last night with near resolution of the hematuria, anticoagulation has been put on hold. Subjectively; this morning the patient tells me he feels well, he denies difficulty breathing, he feels much more comfortable now that he is able to urinate and is not obstructed. Review of Systems Constitutional: Reports chills, Reports fatigue, Reports lack of energy, Reports weight loss, Denies anorexia, Denies body ache(s), Denies daytime sleepiness, Denies fever(s), Denies headache(s) Eyes: Denies blind spots Ears, Nose, Mouth, and Throat: Denies abnormal hearing, Denies change in voice, Denies mouth lesions Cardiovascular: Reports shortness of breath, Denies chest pain, Denies fast heart rate, Denies leg pain with activity Respiratory: Reports cough, Reports shortness of breath, Denies change in phlegm color, Denies chest congestion, Denies excessive phlegm production Gastrointestinal: Reports abdominal pain, Denies belching, Denies bright, red blood in stools, Denies change in bowel habits, Denies vomiting Genitourinary: Reports blood in urine Comments: Blood and blood clots in the urine. Musculoskeletal: Reports back pain, Denies abnormal walking Skin/Breast: Denies acne Neurologic: Denies abnormal hearing Psychiatric: Denies abnormal sleep pattern, Denies anxiety Endocrine: Denies cold intolerance Hematologic/Lymphatic: Reports easy bleeding PMFSH - History History Provided By: Patient - Medical History Medical History: Medical History (Last Updated 02/20/18 @ 09:07 by George Martin MD) Bladder cancer (Acute) Deep venous thrombosis of right upper extremity Myelosuppression after chemotherapy - Surgical History Surgical History: Surgical History (Last Updated 02/20/18 @ 09:08 by George Martin MD) H/O cardiac catheterization History of transurethral destruction of bladder lesion Status post cystoscopy - Tobacco History Tobacco Use In Past 30 Days: Yes Smoking Status: Current every day smoker Tobacco Type: Cigarettes - Alcohol History How Often Do You Have a Drink Containing Alcohol: Never - Substance Use History Substance History: No History of Abuse - Travel History Recent Travel in the [place] Within the Last 8 Weeks: No Recent Travel Out of the Country Within the Last 8 Weeks: No - Immunization History Tetanus Immunization: Unsure Hx Influenza Vaccine This Season: No Medications and Allergies Active Medications: Active Medications Acetaminophen (Tylenol) 650 mg PO Q4H PRN PRN Reason: WITH EACH BLOOD PRODUCT ADMIN. Belladonna Alkaloids/Opium (B & O Supp) 60 mg RECTAL Q6HR PRN PRN Reason: BLADDER SPASM Chlorhexidine Gluconate (Chlorhexidine 2% Cloth) 3 pack TOPICAL DAILY@0400 [facility] Stop: 02/25/18 03:59 Last Admin: 02/20/18 04:50 Dose: 3 pack Chlorhexidine Gluconate (Chlorhexidine 2% Cloth) 3 pack TOPICAL DAILY@0400 PRN PRN Reason: Extra cloth needed Stop: 02/25/18 03:59 Diphenhydramine HCl (Benadryl) 25 mg PO Q4H PRN PRN Reason: WITH EACH BLOOD PRODUCT ADMIN. Last Admin: 02/19/18 19:30 Dose: 25 mg Cefepime HCl 1,000 mg/ Sodium (Chloride) 100 mls @ 200 mls/hr IV.SIG Q8H [facility] Last Infusion: 02/20/18 05:59 Dose: Infused Lactulose (Lactulose Liq) 30 ml PO DAILY PRN PRN Reason: SEVERE CONSITIPATION Ondansetron HCl (Zofran Inj) 4 mg IV.PUSH Q6H PRN PRN Reason: NAUSEA OR VOMITING Oxybutynin Chloride (Ditropan) 5 mg PO TID [facility] Last Admin: 02/20/18 08:53 Dose: 5 mg Oxycodone/Acetaminophen (Percocet 5/325 Mg) 1 tab PO Q6H PRN PRN Reason: PAIN 6-10 Sodium Chloride (Ns Irrigation Bag) 3,000 ml IRRIGATION CONT [facility] Tamsulosin HCl (Flomax) 0.4 mg PO DAILY [facility] Last Admin: 02/20/18 08:53 Dose: 0.4 mg Temazepam (Restoril) 15 mg PO HS PRN PRN Reason: INSOMNIA Zolpidem Tartrate (Ambien) 5 mg PO HS PRN PRN Reason: INSOMNIA Allergies Allergy/AdvReac Type Severity Reaction Status Date / Time ibuprofen Allergy Unknown Arrhythmias Verified 02/19/18 09:38 Home Medications Medication Instructions Recorded Confirmed Type Neupogen 02/19/18 History Zyrtec 02/19/18 History enoxaparin [Lovenox] 60 mg SUB-Q Q12H 02/19/18 02/19/18 History ondansetron HCl [Zofran] 4 mg PO Q6-8H PRN 02/19/18 02/19/18 History oxybutynin chloride 02/19/18 History oxycodone-acetaminophen [Percocet] 1 tab PO Q4-6H PRN 02/19/18 02/19/18 History tamsulosin [Flomax] 0.4 mg PO DAILY 02/19/18 02/19/18 History Physical Exam Vital signs: Vital Signs 02/19/18 09:39 02/19/18 11:20 02/19/18 12:07 Temperature 97.8 F Pulse Rate 118 H 84 79 Respiratory Rate 18 20 20 Blood Pressure 137/79 124/72 124/70 Pulse Oximetry 100 97 02/19/18 13:48 02/19/18 14:00 02/19/18 15:00 Temperature Pulse Rate 94 H 86 90 Respiratory Rate 21 10 L 20 Blood Pressure Pulse Oximetry 98 98 100 02/19/18 15:24 02/19/18 16:00 02/19/18 16:15 Temperature 98.6 F Pulse Rate 86 82 84 Respiratory Rate 21 16 24 Blood Pressure 144/77 H 146/92 H Pulse Oximetry 98 98 98 02/19/18 16:16 02/19/18 16:30 02/19/18 16:38 Temperature 98.5 F Pulse Rate 84 84 85 Respiratory Rate 18 Blood Pressure 145/92 H 132/74 Pulse Oximetry 97 98 02/19/18 17:11 02/19/18 17:27 02/19/18 18:06 Temperature 98.2 F 98.6 F 98.1 F Pulse Rate 83 78 114 H Respiratory Rate 18 22 Blood Pressure 140/68 140/68 152/76 H Pulse Oximetry 100 02/19/18 18:13 02/19/18 19:49 02/19/18 20:00 Temperature 98.1 F 99.1 F 99.1 F Pulse Rate 112 H 113 H 112 H Respiratory Rate 19 18 Blood Pressure 162/69 H 132/67 120/66 Pulse Oximetry 95 95 02/19/18 20:17 02/19/18 20:38 02/19/18 21:56 Temperature 100.1 F H Pulse Rate 101 H 112 H 101 H Respiratory Rate 18 18 Blood Pressure 110/64 120/66 Pulse Oximetry 96 02/19/18 22:42 02/20/18 00:00 02/20/18 03:55 Temperature 98.5 F 98.4 F Pulse Rate 97 H 97 H 73 Respiratory Rate 18 16 12 Blood Pressure 126/75 110/66 114/67 Pulse Oximetry 95 95 97 02/20/18 08:00 Temperature 98.4 F Pulse Rate 67 Respiratory Rate 16 Blood Pressure 110/72 Pulse Oximetry 96 Intake & Output 02/19/18 02/20/18 02/20/18 18:59 06:59 18:59 Intake Total 200 / 200 420 / 420 400 / 400 Output Total 1000 / 1000 3825 / 3825 Balance -800 / -800 -3405 / -3405 400 / 400 Weight 60.9 kg 60.7 kg Intake: IV 200 / 200 200 / 200 Maxipime Inj 1,000 MG In NS Inj 200 / 200 100 ML @ 200 mls/hr IV.SIG Q8H [facility] Rx#:[id number] Magnesium Sulfate 1 gm/D5W 100 100 / 100 ml Premix 100 ML @ 100 mls/hr IV.SIG Q1H [facility] Rx#:[id number] Oral 120 / 120 Other 100 / 100 Rbc As-3 Leukoreduced Unit 100 / 100 [id number] Intake (Blood Product) Amt 0 / 0 0 / 0 400 / 400 Plt Pheresis A Leukoreduced 0 / 0 Unit [id number] Prepooled Plts Leukoreduced 5d 0 / 0 Unit [id number] Rbc As-3 Leukoreduced Unit 0 / 0 [id number] Rbc As-3 Leukoreduced Unit 0 / 0 400 / 400 [id number] Output: Urine Amount (Catheter) 1000 / 1000 3825 / 3825 3-way Urethral 1000 / 1000 3825 / 3825 Other: Bladder Irrigation Fluid - Amount Instilled 3-way Urethral 3,700 Date of Last Bowel Movement 02/18/18 Weight On Admission 60.9 kg - Constitutional no acute distress, chronically ill appearing Comments: Middle aged/elderly male, laying in bed, no acute distress. He appears to be thin but not cachectic. - Routine HEENT Exam Head: Present: normocephalic, atraumatic. Absent: cushingoid faces Eye: Present: EOMI, PERRL ENT: Present: mucous membranes moist - Routine Neck Exam Present: supple, full ROM. Absent: JVD, lymphadenopathy - Routine Respiratory Exam Present: CTA bilaterally, rhonchi, wheezes, crackles. Absent: accessory muscle use Comments: Scattered rhonchi. - Routine Cardiovascular Exam Present: RRR, S1, S2. Absent: murmur - Routine Abdominal Exam Present: soft. Absent: tenderness, distended, rebound - Routine Skin Exam Present: intact - Routine Neurological Exam Present: alert, oriented X3, CN II-XII intact. Absent: sensory deficit, motor deficit - Routine Psychiatric Exam Present: normal affect - Urinary Catheter Management Indwelling Urethral Catheter Cath placed during this visit: yes Reason for continuing: Acute urinary retention Insertion date: 02/19/18 Insertion time: 10:10 3-way Urethral Cath placed during this visit: yes Reason for continuing: Gross Hematuria Insertion date: 02/19/18 Insertion time: 15:30 Assessment and Plan - Plan 67-year-old man with a diagnosis of metastatic high-grade urothelial cell carcinoma of the bladder, initially diagnosed in June 2017, he has been on palliative systemic chemotherapy ever since, most recent regimen has consisted of cisplatin and gemcitabine. Recent restaging imaging scans the patient has been responding well to treatment. He does have a history of right upper extremity deep venous thrombosis associated with infusion port and had been on therapeutic anticoagulation with Lovenox. The patient underwent cystoscopy with transurethral resection of residual bladder tumor on 02/17/2018, he developed significant hematuria immediately after. Hematuria resulted in blood clot formation within the bladder and urinary outflow obstruction. He presented to [facility] emergency department on 02/19/2018. He was noted on blood work to be cytopenic with anemia and thrombocytopenia, thrombus cytopenia likely related to chemotherapy related myelosuppression. The thrombocytopenia likely exacerbated hematuria in the setting of ongoing therapeutic anticoagulation. Since admission the patient has received red cell and platelet transfusions, he underwent manual bladder irrigation with evacuation of large blood clots in the bladder. Anticoagulation has also been put on hold for the time being. Subjectively he is doing better, he feels more comfortable with the continuous bladder irrigation. The urine was evaluated, it has a reddish tinge to it with a sediment but certainly no large blood clots are identified. Recommendations: 1. Metastatic urothelial cell carcinoma the bladder: On palliative systemic therapy with cisplatin and gemcitabine. With reported good response thus far. 2. Hemotherapy related myelosuppression: Commonly appreciated in patients who are on treatment with cisplatin and gemcitabine, thrombocytopenia in particular is common with gemcitabine. He will require closer monitoring and perhaps reevaluation to assess clot burden in the right upper extremity to determine if therapeutic anticoagulation is warranted. Continue supportive transfusions to maintain hemoglobin over 7 or 7.5 g/dL, continue platelet transfusions to maintain platelet count of over 25,000 given the ongoing hematuria. The hematology/oncology service to follow with you. Discussed Condition With: Hospitalist physician. Patient.
--- NOTE | 2018-02-20 09:34 | P.PNIM ---
Subjective Interval history: Evaluated in follow-up for hematuria with thrombocytopenia and anemia. Doing well with continuous bladder irrigation and status post transfusion of 2 units packed red blood cells as well as platelets. Hemoglobin is gone from 6.99.1 platelets gone from 11,000 48,000. Patient feels well. He has no complaints. Care plan discussed with hematology Physical Exam Vital signs: Vital Signs 02/19/18 09:39 02/19/18 11:20 02/19/18 12:07 Temperature 97.8 F Pulse Rate 118 H 84 79 Respiratory Rate 18 20 20 Blood Pressure 137/79 124/72 124/70 Pulse Oximetry 100 97 02/19/18 13:48 02/19/18 14:00 02/19/18 15:00 Temperature Pulse Rate 94 H 86 90 Respiratory Rate 21 10 L 20 Blood Pressure Pulse Oximetry 98 98 100 02/19/18 15:24 02/19/18 16:00 02/19/18 16:15 Temperature 98.6 F Pulse Rate 86 82 84 Respiratory Rate 21 16 24 Blood Pressure 144/77 H 146/92 H Pulse Oximetry 98 98 98 02/19/18 16:16 02/19/18 16:30 02/19/18 16:38 Temperature 98.5 F Pulse Rate 84 84 85 Respiratory Rate 18 Blood Pressure 145/92 H 132/74 Pulse Oximetry 97 98 02/19/18 17:11 02/19/18 17:27 02/19/18 18:06 Temperature 98.2 F 98.6 F 98.1 F Pulse Rate 83 78 114 H Respiratory Rate 18 22 Blood Pressure 140/68 140/68 152/76 H Pulse Oximetry 100 02/19/18 18:13 02/19/18 19:49 02/19/18 20:00 Temperature 98.1 F 99.1 F 99.1 F Pulse Rate 112 H 113 H 112 H Respiratory Rate 19 18 Blood Pressure 162/69 H 132/67 120/66 Pulse Oximetry 95 95 02/19/18 20:17 02/19/18 20:38 02/19/18 21:56 Temperature 100.1 F H Pulse Rate 101 H 112 H 101 H Respiratory Rate 18 18 Blood Pressure 110/64 120/66 Pulse Oximetry 96 02/19/18 22:42 02/20/18 00:00 02/20/18 03:55 Temperature 98.5 F 98.4 F Pulse Rate 97 H 97 H 73 Respiratory Rate 18 16 12 Blood Pressure 126/75 110/66 114/67 Pulse Oximetry 95 95 97 02/20/18 08:00 Temperature 98.4 F Pulse Rate 67 Respiratory Rate 16 Blood Pressure 110/72 Pulse Oximetry 96 Intake & Output 02/19/18 02/20/18 02/20/18 18:59 06:59 18:59 Intake Total 200 / 200 420 / 420 400 / 400 Output Total 1000 / 1000 3825 / 3825 Balance -800 / -800 -3405 / -3405 400 / 400 Weight 60.9 kg 60.7 kg Intake: IV 200 / 200 200 / 200 Maxipime Inj 1,000 MG In NS Inj 200 / 200 100 ML @ 200 mls/hr IV.SIG Q8H [facility] Rx#:[id number] Magnesium Sulfate 1 gm/D5W 100 100 / 100 ml Premix 100 ML @ 100 mls/hr IV.SIG Q1H [facility] Rx#:[id number] Oral 120 / 120 Other 100 / 100 Rbc As-3 Leukoreduced Unit 100 / 100 [id number] Intake (Blood Product) Amt 0 / 0 0 / 0 400 / 400 Plt Pheresis A Leukoreduced 0 / 0 Unit [id number] Prepooled Plts Leukoreduced 5d 0 / 0 Unit [id number] Rbc As-3 Leukoreduced Unit 0 / 0 [id number] Rbc As-3 Leukoreduced Unit 0 / 0 400 / 400 [id number] Output: Urine Amount (Catheter) 1000 / 1000 3825 / 3825 3-way Urethral 1000 / 1000 3825 / 3825 Other: Bladder Irrigation Fluid - Amount Instilled 3-way Urethral 3,700 Date of Last Bowel Movement 02/18/18 Weight On Admission 60.9 kg Narrative: GENERAL: Patient calm resting and without complaints, Starks in place with minimal clots and pink tinged urine SKIN: Warm and dry. No rashes or ecchymotic injuries EYES: Pupils equal and round. No scleral icterus. No injection or drainage. ENT: External ear exam normal. No acute nasal bleeding or discharge. Mucous membranes pink and moist. CARDIOVASCULAR: Regular rate and rhythm. No murmurs gallops or rubs appreciated RESPIRATORY: Good air flow and effort without accessory muscle use. Clear to auscultation. Breath sounds equal bilaterally. GASTROINTESTINAL: Abdomen soft, non-tender, nondistended. Hepatic and splenic margins not palpable. MUSCULOSKELETAL: Extremities without clubbing, cyanosis, or edema. No obvious deformities. NEUROLOGICAL: Awake and alert. No obvious cranial nerve deficits. Motor grossly within normal limits. Five out of 5 muscle strength in the arms and legs. Normal speech. - Urinary Catheter Management Indwelling Urethral Catheter Cath placed during this visit: yes Reason for continuing: Acute urinary retention Insertion date: 02/19/18 Insertion time: 10:10 3-way Urethral Cath placed during this visit: yes Reason for continuing: Gross Hematuria Insertion date: 02/19/18 Insertion time: 15:30 Results - Labs CBC & Chem 7: 02/20/18 04:15 02/20/18 04:15 Laboratory Results - last 24 hr 02/19/18 02/19/18 02/19/18 10:26 10:26 10:30 CBC w Diff Slide review pending WBC 25.5 H RBC 1.96 L Hgb 6.9 L* Hct 19.6 L* MCV 100.1 H MCH 35.1 H MCHC 35.0 RDW 21.3 H Plt Count 11 L* D MPV 7.2 Neut % (Auto) 97.1 H Lymph % (Auto) 2.4 L [place] % (Auto) 0.2 Eos % (Auto) 0.2 Baso % (Auto) 0.1 Neut # (Auto) 24.7 H Lymph # (Auto) 0.6 L [place] # (Auto) 0.1 Eos # (Auto) 0.1 Baso # (Auto) 0.0 WBC Differential Manual diff final Seg Neuts % (Manual) 88 H Band Neuts % (Manual) 11 H Lymphocytes % (Manual) 1 L Abs Neuts (Manual) 25.2 H Differential Comment . Dohle Bodies Present H Platelet Estimate Rare L Platelet Morphology Normal RBC Morphology Normal Dimorphic RBCs Rouleaux Present H Sodium 143 Potassium 2.8 L* Chloride 112 H Carbon Dioxide 20.0 L Anion Gap 11 BUN 12 Creatinine 0.63 Estimated GFR Greater than 89 Random Glucose 88 Lactic Acid Calcium 5.6 L* Prot Corrected Calcium 6.8 L* Magnesium 1.0 L Total Bilirubin 0.3 AST 12 L ALT 9 L Alkaline Phosphatase 70 Total Protein 4.4 L Albumin 2.0 L Blood Type Antibody Screen MTS Gel Crossmatch Bld Prod Order Comment 02/19/18 02/19/18 02/19/18 11:05 14:38 15:30 CBC w Diff WBC RBC Hgb Hct MCV MCH MCHC RDW Plt Count MPV Neut % (Auto) Lymph % (Auto) [place] % (Auto) Eos % (Auto) Baso % (Auto) Neut # (Auto) Lymph # (Auto) [place] # (Auto) Eos # (Auto) Baso # (Auto) WBC Differential Seg Neuts % (Manual) Band Neuts % (Manual) Lymphocytes % (Manual) Abs Neuts (Manual) Differential Comment Dohle Bodies Platelet Estimate Platelet Morphology RBC Morphology Dimorphic RBCs Rouleaux Sodium Potassium 4.8 D Chloride Carbon Dioxide Anion Gap BUN Creatinine Estimated GFR Random Glucose Lactic Acid 0.8 Calcium Prot Corrected Calcium Magnesium Total Bilirubin AST ALT Alkaline Phosphatase Total Protein Albumin Blood Type O Positive Antibody Screen Negative MTS Gel Crossmatch See Detail Bld Prod Order Comment 02/20/18 02/20/18 02/20/18 00:21 04:15 04:15 CBC w Diff Slide review pending WBC 9.1 D RBC 2.89 L Hgb 9.1 L D 9.1 L Hct 26.8 L 27.3 L MCV 94.6 D MCH 31.4 MCHC 33.2 RDW 24.9 H D Plt Count 48 L D MPV 7.6 Neut % (Auto) 90.8 H Lymph % (Auto) 8.1 L [place] % (Auto) 0.3 Eos % (Auto) 0.6 Baso % (Auto) 0.2 Neut # (Auto) 8.2 H Lymph # (Auto) 0.7 L [place] # (Auto) 0.0 Eos # (Auto) 0.1 Baso # (Auto) 0.0 WBC Differential Manual diff final Seg Neuts % (Manual) 82 H Band Neuts % (Manual) 10 H Lymphocytes % (Manual) 8 L Abs Neuts (Manual) 8.4 H Differential Comment . Dohle Bodies Present H Platelet Estimate Low L Platelet Morphology Normal RBC Morphology Dimorphic RBCs Present H Rouleaux Sodium 135 L Potassium 4.6 Chloride 102 D Carbon Dioxide 26.5 Anion Gap 7 BUN 14 Creatinine 0.95 Estimated GFR 80 L Random Glucose 102 Lactic Acid Calcium 8.0 L D Prot Corrected Calcium Magnesium Total Bilirubin AST ALT Alkaline Phosphatase Total Protein Albumin Blood Type Antibody Screen MTS Gel Crossmatch Bld Prod Order Comment - Imaging Impressions Chest X-Ray 02/19/18 10:48 CONCLUSION: No acute cardiopulmonary disease. Assessment and Plan - Assessment (1) Anemia Code(s): D64.9 - Anemia, unspecified Status: Acute Plan: Patient is myelosuppression secondary to palliative chemotherapy. Status post transfusion. Hemoglobin is currently stable. Will follow and transfuse further if needed (2) Thrombocytopenia Code(s): D69.6 - Thrombocytopenia, unspecified Status: Acute (3) Hematuria Code(s): R31.9 - Hematuria, unspecified Status: Acute Plan: Multifactorial Rule out urinary tract infection, patient with thrombocytopenia and known urothelial cancer. Continue bladder irrigation and follow urine output Urology consult appreciated (4) Bladder cancer Code(s): C67.9 - Malignant neoplasm of bladder, unspecified Status: Acute Plan: Metastatic urothelial cell carcinoma the bladder and currently on palliative therapy with cisplatin and gemcitabine oncology following (5) Sepsis syndrome Status: Acute Plan: Leukocytosis, tachycardia and low-grade temperature, continue cefepime for now Follow-up cultures Empiric therapy for probable urinary tract infection
--- NOTE | 2018-02-20 15:36 | P.PNURO ---
Subjective Patient symptoms today: If urine remains light pink to clear may hold CBI. Delgado catheter to remain in place until urology followup in clinic Objective Vital Signs: Vital Signs 02/19/18 16:00 02/19/18 16:15 02/19/18 16:16 Temperature 98.6 F 98.5 F Pulse Rate 82 84 84 Respiratory Rate 16 24 Blood Pressure 146/92 H 145/92 H Pulse Oximetry 98 98 97 02/19/18 16:30 02/19/18 16:38 02/19/18 17:11 Temperature 98.2 F Pulse Rate 84 85 83 Respiratory Rate 18 Blood Pressure 132/74 140/68 Pulse Oximetry 98 02/19/18 17:27 02/19/18 18:06 02/19/18 18:13 Temperature 98.6 F 98.1 F 98.1 F Pulse Rate 78 114 H 112 H Respiratory Rate 18 22 Blood Pressure 140/68 152/76 H 162/69 H Pulse Oximetry 100 02/19/18 19:49 02/19/18 20:00 02/19/18 20:17 Temperature 99.1 F 99.1 F 100.1 F H Pulse Rate 113 H 112 H 101 H Respiratory Rate 19 18 18 Blood Pressure 132/67 120/66 110/64 Pulse Oximetry 95 95 96 02/19/18 20:38 02/19/18 21:56 02/19/18 22:42 Temperature Pulse Rate 112 H 101 H 97 H Respiratory Rate 18 18 Blood Pressure 120/66 126/75 Pulse Oximetry 95 02/20/18 00:00 02/20/18 03:55 02/20/18 08:00 Temperature 98.5 F 98.4 F 98.4 F Pulse Rate 97 H 73 67 Respiratory Rate 16 12 16 Blood Pressure 110/66 114/67 110/72 Pulse Oximetry 95 97 96 02/20/18 12:00 Temperature 98.3 F Pulse Rate 68 Respiratory Rate 17 Blood Pressure 112/68 Pulse Oximetry 98 Intake & Output 02/19/18 02/20/18 02/20/18 18:59 06:59 18:59 Intake Total 200 / 200 420 / 420 400 / 400 Output Total 1000 / 1000 3825 / 3825 Balance -800 / -800 -3405 / -3405 400 / 400 Weight 60.9 kg 60.7 kg Intake: IV 200 / 200 200 / 200 Maxipime Inj 1,000 MG In NS Inj 200 / 200 100 ML @ 200 mls/hr IV.SIG Q8H [facility] Rx#:[id number] Magnesium Sulfate 1 gm/D5W 100 100 / 100 ml Premix 100 ML @ 100 mls/hr IV.SIG Q1H [facility] Rx#:[id number] Oral 120 / 120 Other 100 / 100 Rbc As-3 Leukoreduced Unit 100 / 100 [id number] Intake (Blood Product) Amt 0 / 0 0 / 0 400 / 400 Plt Pheresis A Leukoreduced 0 / 0 Unit [id number] Prepooled Plts Leukoreduced 5d 0 / 0 Unit [id number] Rbc As-3 Leukoreduced Unit 0 / 0 [id number] Rbc As-3 Leukoreduced Unit 0 / 0 400 / 400 [id number] Bladder Irrigation Fluid - 0 / 0 Amount Retained Output: Urine Amount (Catheter) 1000 / 1000 3825 / 3825 3-way Urethral 1000 / 1000 3825 / 3825 Other: Bladder Irrigation Fluid - 120 Amount Instilled 3-way Urethral 3,700 Bladder Irrigation Fluid - 120 Amount Drained Date of Last Bowel Movement 02/18/18 02/20/18 Weight On Admission 60.9 kg Result Diagrams: 02/20/18 04:15 02/20/18 04:15 Medications and IVs: Active Medications Generic Name Dose Route Start Last Admin Trade Name Freq PRN Reason Stop Dose Admin Acetaminophen 650 mg 02/19/18 19:47 Tylenol PO Q4H PRN WITH EACH BLOOD PRODUCT ADMIN. Belladonna Alkaloids/Opium 60 mg 02/19/18 17:24 B & O Supp RECTAL Q6HR PRN BLADDER SPASM Chlorhexidine Gluconate 3 pack 02/20/18 04:00 02/20/18 04:50 Chlorhexidine 2% Cloth TOPICAL 02/25/18 03:59 3 pack DAILY@0400 HARMAN Administration Chlorhexidine Gluconate 3 pack 02/20/18 04:00 Chlorhexidine 2% Cloth TOPICAL 02/25/18 03:59 DAILY@0400 PRN Extra cloth needed Diphenhydramine HCl 25 mg 02/19/18 19:48 02/19/18 19:30 Benadryl PO 25 mg Q4H PRN Administration WITH EACH BLOOD PRODUCT ADMIN. Cefepime HCl 1,000 mg/ Sodium 100 mls @ 200 mls/hr 02/19/18 18:00 02/20/18 10 :11 Chloride IV.SIG 200 mls/hr Q8H HARMAN Administration Lactulose 30 ml 02/19/18 12:06 Lactulose Liq PO DAILY PRN SEVERE CONSITIPATION Ondansetron HCl 4 mg 02/19/18 19:20 Zofran Inj IV.PUSH Q6H PRN NAUSEA OR VOMITING Oxybutynin Chloride 5 mg 02/19/18 18:00 02/20/18 13:03 Ditropan PO 5 mg TID HARMAN Administration Oxycodone/Acetaminophen 1 tab 02/19/18 12:46 Percocet 5/325 Mg PO Q6H PRN PAIN 6-10 Sodium Chloride 3,000 ml 02/19/18 19:00 Ns Irrigation Bag IRRIGATION CONT HARMAN Tamsulosin HCl 0.4 mg 02/20/18 09:00 02/20/18 08:53 Flomax PO 0.4 mg DAILY HARMAN Administration Temazepam 15 mg 02/19/18 12:06 Restoril PO HS PRN INSOMNIA Zolpidem Tartrate 5 mg 02/19/18 12:06 Ambien PO HS PRN INSOMNIA Assessment and Plan - Assessment (1) Anemia Code(s): D64.9 - Anemia, unspecified Status: Acute (2) Bladder cancer Code(s): C67.9 - Malignant neoplasm of bladder, unspecified Status: Acute - Plan -Maintain delgado. May hold CBI -Hand irrigate periodically every 2-4hours and prn for clots -Patient may be discharged with delgado catheter in place once medically stable with urology followup for catheter management -Will follow
[2018-02-21 00:22] VITALS: O2SAT 96
[2018-02-21 04:40] VITALS: PULSE 72; RESP 18
[2018-02-21] MEDS: Chlorhexidine Gluconate 2% 1 Pack (2 Cloths) TOPICAL SCH (04:40)
[2018-02-21 10:07] VITALS: BP 122/72; TEMP 97.7
[2018-02-21 10:42] LABS: Hematocrit 27.3 % (39.0-51.0); Mean Corpuscular HGB Conc 33.1 % (32.0-36.0); Mean Corpuscular Hemoglobin 31.4 pg (27.0-34.0); Mean Platelet Volume 6.9 fL (7.0-11.0); Platelet Count 32 th/mm3 (150-450); Red Blood Count 2.87 mil/mm3 (4.50-5.90); Red Cell Distribution Width 24.1 % (11.6-17.2); White Blood Count 5.2 th/mm3 (4.0-11.0)
--- NOTE | 2018-02-21 11:03 | P.DS ---
Date of admission: 02/19/18 11:37 Primary care physician: Yunier Joseph MD Brief History from admission: Patient is a 67-year-old male patient with a known diagnosis of stage IV urothelial cancer who presents to the ED with anemia, severe thrombocytopenia, urinary retention and hematuria. Patient underwent cystoscopy by Dr. Zhao on Tuesday 02/13 to assess for any residual disease, for which his Lovenox was on hold. Patient was sent home with FC and a prescription for Cipro x 3 days. Has been doing well with only scant blood in urine. Unfortunately, around 2330 last evening on 02/19 he complaints of worsening hematuria and passing a large clot with associated urinary retention and pain in his bladder. Patient denies any recent fevers, cough, shortness of breath, nausea, vomiting, diarrhea, dysuria, black or blood in stools. Last BM was yesterday. He does admit to a good appetite and has been eating well. At the time of assessment patient is lying in bed comfortably with at bedside. Starks catheter is presently draining leonor red blood with no presence of clots at this time. I spoke with Dr. Zhao who would like the Starks cath to be changed to a 22 or 24 bhutanese cath and CBI to be started. Oncologist has also been consulted. Upon presentation patient has leukocytosis with WBC 25.5 and left band shift, severe anemia and thrombocytopenia, hemoglobin 56.9/hematocrit 19.6/platelets 11 as well as multiple electrolyte abnormalities including K 2.8, mag 1.0, and PCC 6.8. DS: Diagnosis - Discharge Diagnosis (1) Anemia Status: Acute (2) Thrombocytopenia Status: Acute (3) Hematuria Status: Acute (4) Bladder cancer Status: Acute (5) Sepsis syndrome Status: Acute DS: Summary Hospital Course: Patient's bladder has been irrigated with continuous bladder irrigation and urology and hematology been consulted. Patient did require 2 units of packed red blood cells as well as platelets. Hemoglobin and platelets have remained stable. Patient still has pink but clear urine without clots. He is ambulatory and without complaint at this time. He will be discharged with his catheter and his Lovenox has been held until follow-up with his oncology team - Time Spent with Patient Total time spent providing and/or coordinating discharge services: Less than 30 minutes Exam Vital signs: Vital Signs 02/20/18 12:00 07/30/18 16:00 02/20/18 20:00 Temperature 98.3 F 98.2 F Pulse Rate 68 81 76 Respiratory Rate 17 18 27 H Blood Pressure 112/68 107/61 126/69 Pulse Oximetry 98 97 97 02/21/18 00:00 02/21/18 04:00 02/21/18 07:00 Temperature 98.4 F 98 F Pulse Rate 72 72 64 Respiratory Rate 23 18 17 Blood Pressure 125/69 126/74 127/67 Pulse Oximetry 96 96 02/21/18 08:00 02/21/18 09:00 02/21/18 10:00 Temperature 97.7 F Pulse Rate 66 64 72 Respiratory Rate 20 16 18 Blood Pressure 141/79 H 119/66 122/72 Pulse Oximetry 96 Intake & Output 02/20/18 02/21/18 02/21/18 18:59 06:59 18:59 Intake Total 3460 / 3460 3160 / 3160 Output Total 2320 / 2320 1300 / 1300 Balance 1140 / 1140 1860 / 1860 Weight 61.3 kg Intake: IV 100 / 100 200 / 200 Maxipime Inj 1,000 MG In NS Inj 100 / 100 200 / 200 100 ML @ 200 mls/hr IV.SIG Q8H [facility] Rx#:[id number] Oral 960 / 960 960 / 960 Other 1999 Intake (Blood Product) Amt 400 / 400 Rbc As-3 Leukoreduced Unit 400 / 400 [id number] Bladder Irrigation Fluid - 0 / 0 Amount Retained Output: Urine Amount (Catheter) 2320 / 2320 1300 / 1300 3-way Urethral 2320 / 2320 1300 / 1300 Other: Bladder Irrigation Fluid - 120 Amount Instilled Bladder Irrigation Fluid - 120 Amount Drained Other Intake Source Saline Solution Saline Solution Date of Last Bowel Movement 02/20/18 02/21/18 # Bowel Movements 1 1 Narrative: GENERAL: Well-nourished, well-developed patient. SKIN: Warm and dry. HEAD: Normocephalic. EYES: No scleral icterus. No injection or drainage. NECK: Supple, trachea midline. No JVD or lymphadenopathy. CARDIOVASCULAR: Regular rate and rhythm without murmurs, gallops, or rubs. RESPIRATORY: Breath sounds equal bilaterally. No accessory muscle use. GASTROINTESTINAL: Catheter, abdomen soft, non-tender, nondistended. MUSCULOSKELETAL: No cyanosis, or edema. BACK: Nontender without obvious deformity. No CVA tenderness. NEUROLOGICAL: Awake and alert. Cranial nerves II through XII intact. Motor and sensory grossly within normal limits. Five out of 5 muscle strength in all muscle groups. Normal speech. Results Procedures completed during hospitalization: Starks placed Labs on day of discharge: Labs from last 24 hours 02/21/18 02/20/18 09:44 00:00 WBC 5.2 RBC 2.87 L Hgb 9.0 L Hct 27.3 L MCV 95.0 MCH 31.4 MCHC 33.1 RDW 24.1 H Plt Count 32 L D MPV 6.9 L Nasal Screen MRSA (PCR) Not detected Preliminary micro results at discharge 02/19/18 11:10 Aerobic Blood Culture - Preliminary Blood - Other No growth in 1 day Anaerobic Blood Culture - Preliminary No growth in 1 day 02/19/18 11:05 Aerobic Blood Culture - Preliminary Blood - Other No growth in 1 day Anaerobic Blood Culture - Preliminary No growth in 1 day - Impressions ITS Impressions Chest X-Ray 02/19/18 10:48 CONCLUSION: No acute cardiopulmonary disease. Discharge Plan - Discharge Disposition Patient Disposition: 01 Discharge Home - Discharge Condition Condition: Stable - Discharge Order Discharge Orders: Discharge Order (Routine); Ordered 02/21/18 Ordered By: Jennifer Grigsby - Discharge Details Anticipated Discharge Date: 02/21/18 - Physicians Team Primary Care Provider: Yunier Joseph Attending Provider: Jennifer Grigsby Other Providers: George Martin MD ; Yunior Zhao MD ; Sherrell Wynne
[2018-02-21] MEDS ORDERED: Heparin Central Flush 100 UNIT/ML 5 ML Vial IV.FLUSH PRN ×2 (12:20)
== END 2018-02-21 14:00 | disposition home or self-care (01) ==
LOC: PHED 09:36 → PHEDA 11:37 → PHICU 14:20
PROVIDERS: ADMIT Hospitalist; ATTEND Hospitalist

== ENCOUNTER 2018-08-30 11:12 | Inpatient (IN) ==
[2018-08-30] MEDS ORDERED: Morphine Inj 4 MG/ML Vial IV.PUSH ONE ×2 (12:35→14:17)
[2018-08-30] MEDS ORDERED: Sod Chloride 0.9% Inj 1,000 ML IV.SIG ONE (12:35)
--- NOTE | 2018-08-30 12:50 | ED ---
HPI General Chief complaint: Abdominal Pain Stated complaint: Abd pain x last tuesday/chemo pt Time Seen by Provider: 08/30/18 12:27 Source: patient Mode of arrival: ambulatory Limitations: no limitations History of Present Illness HPI narrative: 68yo M with stage IV urothelial cancer with mets to lungs, bone, retroperitonum was sent here from his oncologist Dr. Onofre for evaluation of his abdominal pain. Pt has been having epigastric abdominal pain for 8 days associated with nausea and vomiting at homes. Pain is nonradiating, burning. Had CT abd/pelvis 2 days ago as outpatient but does not know results. Went to Dr. Onofre's office today because he was due for his chemo which he takes monthly and was told to come to the ED instead and they are concern about bleeding in his abdomen. Said he took acetaminophen for pain but it didnt help that much. Denies any fever, chest pain, sob, focal weakness or numbness. Related Data Home Medications Medication Instructions Recorded Confirmed tamsulosin [Flomax] 0.4 mg PO HS 02/19/18 08/30/18 Tylenol 1,000 mg BID 08/30/18 08/30/18 bisacodyl 5 mg HS 08/30/18 08/30/18 cetirizine 10 mg PO HS 08/30/18 08/30/18 cholecalciferol (vitamin D3) 5,000 unit PO DAILY 08/30/18 08/30/18 ondansetron HCl 8 mg PO DIRECTED PRN 08/30/18 08/30/18 sennosides-docusate sodium 1 tab PO DAILY 08/30/18 08/30/18 Allergies Allergy/AdvReac Type Severity Reaction Status Date / Time ibuprofen Allergy Unknown Arrhythmias Verified 08/30/18 11:20 Review of Systems ROS: all other systems reviewed are negative [facility] Medical History Medical History Bladder cancer (Acute) Deep venous thrombosis of right upper extremity (Acute) Myelosuppression after chemotherapy (Acute) Surgical History Surgical History H/O cardiac catheterization (Acute) History of transurethral destruction of bladder lesion (Acute) Status post cystoscopy (Acute) Social History Social History Substance History: No History of Abuse Second Hand Smoke Exposure: Yes Smoking Status: Current every day smoker Tobacco Type: Cigarettes How Often Do You Have a Drink Containing Alcohol: Never Recent Travel in [facility] within the Last 8 Weeks: No Recent Out of Country Travel within the Last 8 Weeks: No Immunization History Tetanus Immunization: Unsure Exam Narrative Exam Narrative: GENERAL: 68yo M in mild distress. SKIN: Focused skin assessment warm/dry. HEAD: Atraumatic. Normocephalic. EYES: Pupils equal and round. No scleral icterus. No injection or drainage. ENT: No nasal bleeding or discharge. Mucous membranes pink and moist. NECK: Trachea midline. No JVD. CARDIOVASCULAR: HR in the low 100s. No murmur appreciated. RESPIRATORY: No accessory muscle use. Clear to auscultation. Breath sounds equal bilaterally. GASTROINTESTINAL: Abdomen soft, +TTP epigastric region. No rebound tenderness or guarding. MUSCULOSKELETAL: No obvious deformities. No clubbing. No cyanosis. No edema. NEUROLOGICAL: Awake and alert. No obvious cranial nerve deficits. Motor grossly within normal limits. Normal speech. PSYCHIATRIC: Appropriate mood and affect; insight and judgment normal. Course Initial Documented Vital Signs Temperature 97.6 F 08/30/18 11:20 Pulse Rate 120 H 08/30/18 11:20 Respiratory Rate 20 08/30/18 11:20 Blood Pressure 134/82 08/30/18 11:20 Pulse Oximetry 98 08/30/18 11:20 Last Documented Vital Signs Temperature 98.4 F 08/31/18 08:00 Pulse Rate 84 08/31/18 08:00 Respiratory Rate 20 08/31/18 08:00 Blood Pressure 111/65 08/31/18 08:00 Pulse Oximetry 95 08/31/18 08:00 Medical Decision Making [facility] Narrative Medical decision making narrative: 68yo M with epigastric abdominal pain with nausea and vomiting. Sent by oncologist Dr. Red for further evaluation. Had CT a/p 08/28/18 and I was able to review it online and showed no acute findings There was progression of lung nodule, persistent soft tissue density in bladder, nonspecific focal lucency in left ilium unchanged from prior. Pancreatic head appears prominent but distinct mass not seen. Labs reviewed, no leukocytosis. H/H normal. Mild hyponatremia at 131. BUN elevated at 28. Liver enzymes also elevated. Lipase elevated at 3058. Pt given morphine and IVF and pain improved but returned so another dose of morphine and IVF given. Pt will be admitted for acute pancreatitis. Will need GI evaluation and possibly MRCP. Discussed with Dr. Galloway accepted to his service. Medical Screen Exam Complete: Yes Emergency Medical Condition: Yes Differential Diagnosis Differential Diagnosis: Acute pancreatitis vs. metastatic disease vs. colitis vs. gastritis vs. peptic ulcer disease Lab Data Result diagrams: 08/31/18 06:50 08/31/18 06:50 Lab Results 08/30/18 08/30/18 08/30/18 Range/Units 13:20 13:20 18:30 CBC w Diff Auto diff final WBC 7.7 (4.0-11.0) th/mm3 RBC 4.38 L (4.50-5.90) mil/mm3 Hgb 14.0 (13.0-17.0) gm/dL Hct 42.7 (39.0-51.0) % MCV 97.3 (80.0-100.0) fL MCH 31.9 (27.0-34.0) pg MCHC 32.8 (32.0-36.0) % RDW 14.1 (11.6-17.2) % Plt Count 217 (150-450) th/mm3 MPV 7.6 (7.0-11.0) fL Neut % (Auto) 73.6 H (16.0-70.0) % Lymph % (Auto) 13.4 (9.0-44.0) % [place] % (Auto) 9.8 H (0.0-8.0) % Eos % (Auto) 2.1 (0.0-4.0) % Baso % (Auto) 1.1 (0.0-2.0) % Neut # (Auto) 5.6 (1.8-7.7) th/mm3 Lymph # (Auto) 1.0 (1.0-4.8) th/mm3 [place]ford # (Auto) 0.8 (0.0-0.9) th/mm3 Eos # (Auto) 0.2 (0.0-0.4) th/mm3 Baso # (Auto) 0.1 (0.0-0.2) th/mm3 WBC Differential . Differential Comment . Sodium 131 L (136-145) meq/L Potassium 4.0 (3.5-5.1) meq/L Chloride 95 L (98-107) meq/L Carbon Dioxide 27.6 (21.0-32.0) meq/L Anion Gap 8 (5-15) meq/L BUN 28 H (7-18) mg/dL Creatinine 1.10 (0.60-1.30) mg/dL Estimated GFR 67 L (>89) mL/min Random Glucose 85 (74-106) mg/dL Calcium 8.6 (8.5-10.1) mg/dL Calcium Adj for Albumin (8.5-10.1) mg/dL Total Bilirubin 0.7 (0.2-1.0) mg/dL AST 132 H (15-37) U/L ALT 228 H (12-78) U/L Alkaline Phosphatase 381 H (45-117) U/L Total Protein 7.1 (6.4-8.2) g/dL Albumin 2.7 L (3.4-5.0) g/dL Lipase 3058 H (73-393) U/L Urine Color Dark-yellow (Yellw/Straw) Urine Clarity Clear (Clear) Urine pH 6.0 (5.0-8.5) Ur Specific Early Greater/equal 1.030 (1.002-1.035) Urine Protein 100 H (Neg-Trace) mg/dL Urine Glucose (UA) Negative (Negative) mg/dL Urine Ketones 15 H (Negative) mg/dL Urine Occult Blood Trace (Negative) Urine Nitrate Negative (Negative) Urine Bilirubin Negative (Negative) Urine Ictotest Negative (Negative) Urine Urobilinogen 1.0 (Less than 2) mg/dL Ur Leukocyte Esterase Negative (Negative) Urine WBC 0-5 (0-5) /hpf Ur Squamous Epith Cells 0-5 (0-5) /hpf Amorphous Sediment Few H (None) /hpf Urine Bacteria Rare H (None) /hpf Hyaline Casts 0-3 (0-3) /lpf Fine Granular Casts 1-3 H (None) /lpf Urine Mucus Few H (Occasional) /lpf Micro UA Comment Culture not ind Ur Microscopic Review Microscopic reviewed Urine Culture Comments Culture not ind 08/31/18 08/31/18 Range/Units 06:50 06:50 CBC w Diff Auto diff final WBC 7.0 (4.0-11.0) th/mm3 RBC 3.33 L (4.50-5.90) mil/mm3 Hgb 11.1 L D (13.0-17.0) gm/dL Hct 32.7 L (39.0-51.0) % MCV 98.2 (80.0-100.0) fL MCH 33.4 (27.0-34.0) pg MCHC 34.0 (32.0-36.0) % RDW 14.1 (11.6-17.2) % Plt Count 146 L D (150-450) th/mm3 MPV 7.6 (7.0-11.0) fL Neut % (Auto) 72.6 H (16.0-70.0) % Lymph % (Auto) 13.2 (9.0-44.0) % Blackford % (Auto) 9.7 H (0.0-8.0) % Eos % (Auto) 3.8 (0.0-4.0) % Baso % (Auto) 0.7 (0.0-2.0) % Neut # (Auto) 5.1 (1.8-7.7) th/mm3 Lymph # (Auto) 0.9 L (1.0-4.8) th/mm3 Blackford # (Auto) 0.7 (0.0-0.9) th/mm3 Eos # (Auto) 0.3 (0.0-0.4) th/mm3 Baso # (Auto) 0.0 (0.0-0.2) th/mm3 WBC Differential . Differential Comment . Sodium 130 L (136-145) meq/L Potassium 4.0 (3.5-5.1) meq/L Chloride 97 L (98-107) meq/L Carbon Dioxide 24.5 (21.0-32.0) meq/L Anion Gap 9 (5-15) meq/L BUN 18 (7-18) mg/dL Creatinine 0.93 (0.60-1.30) mg/dL Estimated GFR 81 L (>89) mL/min Random Glucose 66 L (74-106) mg/dL Calcium 7.1 L* D (8.5-10.1) mg/dL Calcium Adj for Albumin 8.7 (8.5-10.1) mg/dL Total Bilirubin 1.4 H (0.2-1.0) mg/dL AST 117 H (15-37) U/L ALT 175 H (12-78) U/L Alkaline Phosphatase 368 H (45-117) U/L Total Protein 5.4 L D (6.4-8.2) g/dL Albumin 2.0 L D (3.4-5.0) g/dL Lipase 2268 H (73-393) U/L Urine Color (Yellw/Straw) Urine Clarity (Clear) Urine pH (5.0-8.5) Ur Specific Early (1.002-1.035) Urine Protein (Neg-Trace) mg/dL Urine Glucose (UA) (Negative) mg/dL Urine Ketones (Negative) mg/dL Urine Occult Blood (Negative) Urine Nitrate (Negative) Urine Bilirubin (Negative) Urine Ictotest (Negative) Urine Urobilinogen (Less than 2) mg/dL Ur Leukocyte Esterase (Negative) Urine WBC (0-5) /hpf Ur Squamous Epith Cells (0-5) /hpf Amorphous Sediment (None) /hpf Urine Bacteria (None) /hpf Hyaline Casts (0-3) /lpf Fine Granular Casts (None) /lpf Urine Mucus (Occasional) /lpf Micro UA Comment Ur Microscopic Review Urine Culture Comments Discharge Plan Discharge Disposition Patient Disposition: ED Admit(ED Internal Use Only) Discharge Order Discharge Orders: ED Use Only Admit Order (Routine); Ordered 08/30/18 Ordered By: Neelam Damico Discharge Details Diagnosis: Acute pancreatitis Physicians Team ED Provider: Neelam Damico Primary Care Provider: Yunier Joseph Attending Provider: Peter Galloway Other Providers: Madi Pollack Status ED Status: Left Department Discharge Information Discharge Date/Time: 08/30/18 15:38
[2018-08-30 13:31] LABS: Baso # (Auto) 0.1 th/mm3 (0.0-0.2); Baso % (Auto) 1.1 % (0.0-2.0); Eos # (Auto) 0.2 th/mm3 (0.0-0.4); Eos % (Auto) 2.1 % (0.0-4.0); Hematocrit 42.7 % (39.0-51.0); Lymph % (Auto) 13.4 % (9.0-44.0); Mean Corpuscular HGB Conc 32.8 % (32.0-36.0); Mean Corpuscular Hemoglobin 31.9 pg (27.0-34.0); Mean Corpuscular Volume 97.3 fL (80.0-100.0); Mean Platelet Volume 7.6 fL (7.0-11.0); Mono # (Auto) 0.8 th/mm3 (0.0-0.9); Mono % (Auto) 9.8 % (0.0-8.0); Neut # (Auto) 5.6 th/mm3 (1.8-7.7); Neut % (Auto) 73.6 % (16.0-70.0); Platelet Count 217 th/mm3 (150-450); Red Blood Count 4.38 mil/mm3 (4.50-5.90); Red Cell Distribution Width 14.1 % (11.6-17.2); White Blood Count 7.7 th/mm3 (4.0-11.0)
[2018-08-30 13:44] LABS: Chloride 95 meq/L (98-107); Sodium 131 meq/L (136-145)
[2018-08-30 13:47] LABS: Albumin 2.7 g/dL (3.4-5.0); Anion Gap 8 meq/L (5-15); Calcium 8.6 mg/dL (8.5-10.1); Carbon Dioxide 27.6 meq/L (21.0-32.0); Glucose,Random 85 mg/dL (74-106)
[2018-08-30 13:48] LABS: Blood Urea Nitrogen 28 mg/dL (7-18)
[2018-08-30 13:50] LABS: Alanine Aminotransferase 228 U/L (12-78); Aspartate Aminotransferase 132 U/L (15-37); Glomerular Filtration Rate 67 mL/min (>89)
[2018-08-30 13:52] LABS: Total Protein 7.1 g/dL (6.4-8.2)
[2018-08-30 13:53] LABS: Alkaline Phosphatase 381 U/L (45-117); Lipase 3058 U/L (73-393)
[2018-08-30] MEDS ORDERED: Sod Chloride 0.9% Inj 1,000 ML IV.SIG SCH (14:30)
[2018-08-30] MEDS ORDERED: Bisacodyl 10 MG Supp RECTAL PRN (14:33)
[2018-08-30] MEDS ORDERED: Acetaminophen 325 MG Tablet PO PRN (14:33)
[2018-08-30] MEDS ORDERED: Naloxone Inj 0.4 MG/ML Vial IV.PUSH PRN (14:35)
[2018-08-30] MEDS ORDERED: Ketorolac Inj 30 MG/ML (IVP) Vial IV.PUSH PRN ×2 (14:35)
[2018-08-30] MEDS ORDERED: Morphine Inj 4 MG/ML Vial IV.PUSH PRN (14:35)
[2018-08-30] MEDS: Sod Chloride 0.9% Inj 1,000 ML IV.CONT SCH ×2 (15:30→22:30)
--- NOTE | 2018-08-30 15:32 | P.HPIM ---
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 Supposedly patient was at his oncologist office, Dr. Onofre, who recommended patient come to ED for evaluation of a 7-day complaint of abdominal pain with nausea and vomiting. Patient states that he had a CT scan on 08/28/18 and reviewed by ED physician showing progression of lung nodule and persistent soft tissue density in bladder with nonspecific focal lucency in the left ilium unchanged from prior readings. No distinct mass in pancreas. Patient states that he has been unable to eat or drink for the last 2 days, prior to this he was doing quite well and actually gained 7 pounds. He states that the abdominal pain is midepigastric, burning and feels like reflux in nature, rated a 7 out of 10 at its worst on pain scale. Denies any recent diarrhea or black or bloody stools. Last bowel movement was 2 days ago which was reportedly unremarkable. Denies any recent NSAID use. Denies a history of a colonoscopy or EGD. Does not follow with a piece goods clerk. Denies any fevers, chills, headache, chest pain, diarrhea or dysuria. Inpatient Certification Inpatient Certification: I certify that the inpatient services were ordered in accordance with Medicare regulations governing the order. This includes certification that hospital inpatient services are reasonable and necessary and in the case of services not specified as inpatient-only under 42 CFR 419.22(n), that they are appropriately provided as inpatient services in accordance to with the 2-midnight benchmark under 43 CFR 412.3(e) Estimated Total Length of Stay (Days): 2 Plans for Post Hospital Care: Home Review of Systems Review of Systems: all other systems reviewed are negative PMFSH Medical History Medical History Bladder cancer (Acute) Deep venous thrombosis of right upper extremity (Acute) Myelosuppression after chemotherapy (Acute) Surgical History Surgical History H/O cardiac catheterization (Acute) History of transurethral destruction of bladder lesion (Acute) Status post cystoscopy (Acute) Social History Social History Substance History: No History of Abuse Second Hand Smoke Exposure: Yes Smoking Status: Current every day smoker Tobacco Type: Cigarettes How Often Do You Have a Drink Containing Alcohol: Never Recent Travel in [facility] within the Last 8 Weeks: No Recent Out of Country Travel within the Last 8 Weeks: No Immunization History Tetanus Immunization: Unsure Medications and Allergies Allergies Allergy/AdvReac Type Severity Reaction Status Date / Time ibuprofen Allergy Unknown Arrhythmias Verified 08/30/18 11:20 Home Medications Medication Instructions Recorded Confirmed Type Zyrtec 02/19/18 History tamsulosin [Flomax] 0.4 mg PO DAILY 02/19/18 08/30/18 History Active Medications: Active Medications Acetaminophen (Tylenol) 650 mg PO Q4H PRN PRN Reason: Temp > 100.4 Al Hydroxide/Mg Hydroxide (Milk Of Magnesia Liq) 30 ml PO Q12H PRN PRN Reason: Mild Constipation Bisacodyl (Dulcolax Supp) 10 mg RECTAL DAILY PRN PRN Reason: SEVERE CONSITIPATION Heparin Sodium (Porcine) (Heparin Inj) 5,000 units SQ Q12H [facility] Hydromorphone HCl (Dilaudid) 1 mg PO Q4H PRN PRN Reason: PAIN SCALE 3 TO 5 Hydromorphone HCl (Dilaudid) 2 mg PO Q4H PRN PRN Reason: PAIN SCALE 6 TO 10 Sodium Chloride (Ns Inj) 1,000 mls @ 1,000 mls/hr IV.SIG BOLUS [facility]MAN Stop: 08/30/18 15:29 Last Admin: 08/30/18 14:34 Dose: 1,000 mls/hr Sodium Chloride (Ns Inj) 1,000 mls @ 100 mls/hr IV.CONT .Q10H [facility] Ketorolac Tromethamine (Toradol Inj) 30 mg IV.PUSH Q6H PRN PRN Reason: PAIN 6-10;IF UNABLE TO TAKE PO Stop: 09/04/18 14:34 Ketorolac Tromethamine (Toradol Inj) 15 mg IV.PUSH Q6H PRN PRN Reason: PAIN 3-5; IF UABLE TO TAKE PO Stop: 09/04/18 14:34 Lactulose (Lactulose Liq) 30 ml PO DAILY PRN PRN Reason: SEVERE CONSITIPATION Morphine Sulfate (Morphine Inj) 4 mg IV.PUSH Q3H PRN PRN Reason: BREAKTHROUGH PAIN Naloxone HCl (Narcan Inj) 0.4 mg IV.PUSH UNSCH PRN PRN Reason: SEE LABEL COMMENTS Ondansetron HCl (Zofran Inj) 4 mg IV.PUSH Q6H PRN PRN Reason: NAUSEA OR VOMITING Senna/Docusate Sodium (Tonie-Colace) 1 tab PO BID [facility] Sennosides (Senokot) 17.2 mg PO Q12H PRN PRN Reason: Moderate Constipation Sodium Chloride (Ns Flush) 2 ml IV.FLUSH BID [facility] Sodium Chloride (Ns Flush) 2 ml IV.FLUSH PRN PRN PRN Reason: FLUSH AFTER USING IV ACCESS Physical Exam Vital signs: Vital Signs 08/30/18 11:20 08/30/18 14:38 Temperature 97.6 F Pulse Rate 120 H 86 Respiratory Rate 20 16 Blood Pressure 134/82 122/74 Pulse Oximetry 98 98 Intake & Output 08/29/18 08/30/18 08/30/18 18:59 06:59 18:59 Intake Total 1000 / 1000 Balance 1000 / 1000 Weight 59.1 kg Intake: IV 1000 / 1000 NS Inj 1,000 ML @ Wide Open IV. 1000 / 1000 SIG BOLUS ONE Rx#:[id number] Narrative: GENERAL: Well-developed, thin appearing male patient with complaints of abdominal pain. SKIN: Warm and dry. No rash. Ashen. Right upper chest port in place. HEAD: Normocephalic. Atraumatic. EYES: Pupils equal and round. No scleral icterus. No injection or drainage. ENT: No nasal bleeding or discharge. Mucous membranes pink and moist. NECK: Supple. Trachea midline. CARDIOVASCULAR: Regular rate and rhythm. S1, S2 noted. No murmur appreciated. RESPIRATORY: No accessory muscle use. Clear to auscultation. Breath sounds equal bilaterally. GASTROINTESTINAL: Abdomen soft, nondistended. Some tenderness to midepigastric area. Normoactive bowel sounds x4. MUSCULOSKELETAL: No obvious deformities. Extremities without clubbing, cyanosis , or edema. NEUROLOGICAL: Awake and alert. No obvious cranial nerve deficits. Motor grossly within normal limits. 5/5 muscle strength in bilateral upper and lower extremities. Normal speech. PSYCHIATRIC: Appropriate mood and affect; insight and judgment normal. Results Labs CBC & Chem 7: 08/30/18 13:20 08/30/18 13:20 Caprini VTE Risk Assessment Caprini VTE Risk Assessment: Moderate/High Risk (score >= 2) Caprini Risk Assessment Model: Point Value = 1 Point Value = 2 Point Value = 3 Point Value = 5 Age 41-60 Minor surgery BMI > 25 kg/m2 Swollen legs Varicose veins or History of unexplained or recurrent spontaneous Oral contraceptives or hormone replacement Sepsis (< 1 month) Serious lung disease, including pneumonia (< 1 month) Abnormal pulmonary function Acute myocardial infarction Congestive heart failure (< 1 month) History of inflammatory bowel disease Medical patient at bed rest Age 61-74 Arthroscopic surgery Major open surgery (> 45 min) Laparoscopic surgery (> 45 min) Malignancy Confined to bed (> 72 hours) Immobilizing plaster cast Central venous access Age >= 75 History of VTE Family history of VTE Factor V Leiden Prothrombin [id number] Lupus anticoagulant Anticardiolipin antibodies Elevated serum homocysteine Heparin-induced thrombocytopenia Other congenital or acquired thrombophilia Stroke (< 1 month) Elective arthroplasty Hip, pelvis, or leg fracture Acute spinal cord injury (< 1 month) Prophylaxis Regimen: Total Risk Factor Score Risk Level Prophylaxis Regimen 0-1 Low Early ambulation 2 Moderate Order ONE of the following: *Sequential Compression Device (SCD) *Heparin 5000 units SQ BID 3-4 Higher Order ONE of the following medications: *Heparin 5000 units SQ TID *Enoxaparin/Lovenox 40 mg SQ daily (WT < 150 kg, CrCl > 30 mL/min) *Enoxaparin/Lovenox 30 mg SQ daily (WT < 150 kg, CrCl > 10-29 mL/min) *Enoxaparin/Lovenox 30 mg SQ BID (WT < 150 kg, CrCl > 30 mL/min) AND/OR *Sequential Compression Device (SCD) 5 or more Highest Order ONE of the following medications: *Heparin 5000 units SQ TID (Preferred with Epidurals) *Enoxaparin/Lovenox 40 mg SQ daily (WT < 150 kg, CrCl > 30 mL/min) *Enoxaparin/Lovenox 30 mg SQ daily (WT < 150 kg, CrCl > 10-29 mL/min) *Enoxaparin/Lovenox 30 mg SQ BID (WT < 150 kg, CrCl > 30 mL/min) AND *Sequential Compression Device (SCD) Assessment and Plan Plan This is a 68-year-old male patient with a known medical history of urothelial cancer with metastases to the lungs, bone and retroperitoneum who presented to the ED with complaints of abdominal pain times 7 days as well as nausea and vomiting. Acute pancreatitis Transaminitis, mild secondary to above -Patient complaints of a 7-day history of abdominal pain as well as nausea and vomiting. -Lipase over 3000 on presentation. Denies any history of pancreatitis. -CT abdomen/pelvis 2 days ago was reviewed outpatient did not show any acute findings. -Gastroenterology consulted, input and recommendations pending. May need an MRCP. -Will provide GI cocktail with Protonix, Carafate, patient complains of midepigastric burning. -CBC and BMP reviewed, essentially unremarkable. Mild transaminitis noted. Likely secondary to acute pancreatitis. Denies any recent alcohol use. -Rest bowel. Ensure hydration continue IV fluids. -Pain control with IV Toradol and morphine as needed per pain scale. -Antiemetics as needed. -Clear liquid diet as tolerated. -Supportive care. Check lipase in a.m. Hyponatremia, mild Sodium 131 on presentation. BUN 28. This should improve with IV hydration. Continue to monitor. Urothelial cancer with metastases -Patient follows with oncologist, Dr. Onofre, currently undergoing chemotherapy. -This is stable. Will continue to follow. -Continue tamsulosin. Tobacco abuse -Encouraged cessation. Nicotine patch offered, patient declined. -Approximately 7 minutes were spent counseling the patient cessation techniques. He understands continuing to smoke and lead to stroke and and worsening of comorbidities. The benefits of stopping were also presented to him. The patient has verbalized desire to give another try regarding smoking cessation and its benefits. DVT prophylaxis: SCDs. Heparin. D/w patient, RN, Dr. Willis and Dr. Galloway The exam, history, and the medical decision-making described in the above note were completed with the assistance of the mid-level provider. I reviewed and agree with the findings presented. I attest that I had a [id number] encounter with the patient on the same day, and personally performed and documented my assessment and findings in the medical record. Patient with abdominal pain, nausea and vomiting Vital signs noted Outpatient CT negative for acute findings per ED physician (unable to view imaging study close) Abdomen soft tender epigastric area Lipase 3000 Acute pancreatitis etiology to be determined. Patient also has transaminitis. Discussed with GI will obtain MRCP. He is on Keytruda which can cause abdominal pain and transaminitis. He is also on Zometa which can cause abdominal pain
[2018-08-30] MEDS ORDERED: Aluminum/Magnesium/Simethacone Susp 30 ML UDC PO ONE (15:35)
[2018-08-30] MEDS: Pantoprazole Inj 40 MG Vial IV.PUSH SCH (16:40)
[2018-08-30] MEDS: Heparin - SQ 10,000 UNITS/ML Vial SQ SCH ×2 (16:40→16:47)
[2018-08-30] MEDS: Sucralfate 1 GM Tablet PO SCH (16:40)
--- NOTE | 2018-08-30 17:18 | P.CONGI ---
History of Present Illness Consult date: 08/30/18 Consult reason: Acute pancreatitis Chief complaint: acute pancreatitis History of Present Illness: Patient is a pleasant 68-year-old gentleman who is undergoing chemotherapy for bladder cancer for the past year who for the past week has complained of epigastric pain it is described as a burning sensation in the epigastric area and this burning has gradually gotten worse with nausea and vomiting and so he presented to the emergency room where he was found to have elevated liver function tests and lipase suggesting pancreatitis apparently as part of his workup for his cancer and he had a CT of the abdomen and a PET scan a couple of days ago which basically were unremarkable as far as the abdomen is concerned currently the patient continues to have the epigastric burning and appears to be shaking and reports some sweating he denies any hematemesis or coffee-ground emesis melena or hematochezia he denies any NSAID use he denies any alcohol use but he does report being on chemotherapy for the past year Review of Systems A 12 point system review was otherwise unremarkable PMFSH - History History Provided By: Patient - Medical History Medical History: Medical History (Last Reviewed 08/30/18 @ 15:28 by Lesa Khan) Bladder cancer (Acute) Deep venous thrombosis of right upper extremity Myelosuppression after chemotherapy - Surgical History Surgical History: Surgical History (Last Reviewed 08/30/18 @ 15:28 by Lesa Khan) H/O cardiac catheterization History of transurethral destruction of bladder lesion Status post cystoscopy - Tobacco History Second Hand Smoke Exposure: Yes Tobacco Use In Past 30 Days: Yes Smoking Status: Current every day smoker Tobacco Type: Cigarettes - Alcohol History How Often Do You Have a Drink Containing Alcohol: Never - Substance Use History Substance History: No History of Abuse - Travel History Recent Travel in the [place] Within the Last 8 Weeks: No Recent Travel Out of the Country Within the Last 8 Weeks: No - Immunization History Tetanus Immunization: Unsure Hx Influenza Vaccine This Season: No Medications and Allergies Active Medications: Active Medications Acetaminophen (Tylenol) 650 mg PO Q4H PRN PRN Reason: Temp > 100.4 Al Hydroxide/Mg Hydroxide (Milk Of Magnesia Liq) 30 ml PO Q12H PRN PRN Reason: Mild Constipation Bisacodyl (Dulcolax Supp) 10 mg RECTAL DAILY PRN PRN Reason: SEVERE CONSITIPATION Heparin Sodium (Porcine) (Heparin Inj) 5,000 units SQ Q12H [facility] Last Admin: 08/30/18 16:47 Dose: Not Given Hydromorphone HCl (Dilaudid) 1 mg PO Q4H PRN PRN Reason: PAIN SCALE 3 TO 5 Hydromorphone HCl (Dilaudid) 2 mg PO Q4H PRN PRN Reason: PAIN SCALE 6 TO 10 Sodium Chloride (Ns Inj) 1,000 mls @ 100 mls/hr IV.CONT .Q10H [facility] Last Admin: 08/30/18 15:30 Dose: 100 mls/hr Ketorolac Tromethamine (Toradol Inj) 30 mg IV.PUSH Q6H PRN PRN Reason: PAIN 6-10;IF UNABLE TO TAKE PO Stop: 09/04/18 14:34 Ketorolac Tromethamine (Toradol Inj) 15 mg IV.PUSH Q6H PRN PRN Reason: PAIN 3-5; IF UABLE TO TAKE PO Stop: 09/04/18 14:34 Lactulose (Lactulose Liq) 30 ml PO DAILY PRN PRN Reason: SEVERE CONSITIPATION Morphine Sulfate (Morphine Inj) 4 mg IV.PUSH Q3H PRN PRN Reason: BREAKTHROUGH PAIN Naloxone HCl (Narcan Inj) 0.4 mg IV.PUSH UNSCH PRN PRN Reason: SEE LABEL COMMENTS Ondansetron HCl (Zofran Inj) 4 mg IV.PUSH Q6H PRN PRN Reason: NAUSEA OR VOMITING Pantoprazole Sodium (Protonix Inj) 40 mg IV.PUSH Q24H [facility] Last Admin: 08/30/18 16:40 Dose: 40 mg Senna/Docusate Sodium (Tonie-Colace) 1 tab PO BID [facility] Sennosides (Senokot) 17.2 mg PO Q12H PRN PRN Reason: Moderate Constipation Sodium Chloride (Ns Flush) 2 ml IV.FLUSH BID [facility] Sodium Chloride (Ns Flush) 2 ml IV.FLUSH PRN PRN PRN Reason: FLUSH AFTER USING IV ACCESS Sucralfate (Carafate) 1 gm PO BIDAC [facility] Last Admin: 08/30/18 16:40 Dose: 1 gm Allergies Allergy/AdvReac Type Severity Reaction Status Date / Time ibuprofen Allergy Unknown Arrhythmias Verified 08/30/18 11:20 Home Medications Medication Instructions Recorded Confirmed Type Zyrtec 02/19/18 History tamsulosin [Flomax] 0.4 mg PO DAILY 02/19/18 08/30/18 History Exam Vital signs: Vital Signs 08/30/18 11:20 08/30/18 14:38 Temperature 97.6 F Pulse Rate 120 H 86 Respiratory Rate 20 16 Blood Pressure 134/82 122/74 Pulse Oximetry 98 98 Intake & Output 08/29/18 08/30/18 08/30/18 18:59 06:59 18:59 Intake Total 1300 / 1300 Balance 1300 / 1300 Weight 59.1 kg Intake: IV 1000 / 1000 NS Inj 1,000 ML @ Wide Open IV. 1000 / 1000 SIG BOLUS ONE Rx#:[id number] Oral 300 / 300 - Constitutional no acute distress - Routine HEENT Exam Head: Present: normocephalic, atraumatic Eye: Present: EOMI, PERRL. Absent: conjunctival icterus ENT: Present: mucous membranes moist - Routine Neck Exam Present: supple. Absent: JVD, carotid bruit - Routine Respiratory Exam Present: CTA bilaterally. Absent: accessory muscle use - Routine Cardiovascular Exam Present: RRR. Absent: murmur, gallop, rubs - Routine Abdominal Exam Present: soft, normoactive bowel sounds, tenderness. Absent: distended, rebound , guarding Comments: Mild upper abdominal tenderness no rebound or guarding - Routine Extremities Exam Absent: cyanosis, clubbing, edema - Routine Skin Exam Present: dry, warm - Routine Neurological Exam Present: alert, oriented X3 Results - Labs CBC & Chem 7: 08/30/18 13:20 08/30/18 13:20 Labs: Laboratory Results - last 24 hr 08/30/18 08/30/18 13:20 13:20 CBC w Diff Auto diff final WBC 7.7 RBC 4.38 L Hgb 14.0 Hct 42.7 MCV 97.3 MCH 31.9 MCHC 32.8 RDW 14.1 Plt Count 217 MPV 7.6 Neut % (Auto) 73.6 H Lymph % (Auto) 13.4 [place] % (Auto) 9.8 H Eos % (Auto) 2.1 Baso % (Auto) 1.1 Neut # (Auto) 5.6 Lymph # (Auto) 1.0 [place] # (Auto) 0.8 Eos # (Auto) 0.2 Baso # (Auto) 0.1 WBC Differential . Differential Comment . Sodium 131 L Potassium 4.0 Chloride 95 L Carbon Dioxide 27.6 Anion Gap 8 BUN 28 H Creatinine 1.10 Estimated GFR 67 L Random Glucose 85 Calcium 8.6 Total Bilirubin 0.7 AST 132 H ALT 228 H Alkaline Phosphatase 381 H Total Protein 7.1 Albumin 2.7 L Lipase 3058 H Assessment and Plan - Plan Patient presenting with abdominal pain is noted to have elevated liver function tests and elevated lipase suggesting pancreatitis We will obtain an MRCP Will monitor labs Recommend hydration and pain control Agree with current supportive measures Further recommendations she will depend on the above findings and hospital course
[2018-08-30 18:42] LABS: Clarity,Urine Clear (Clear); Glucose,Urine (UA) Negative (Negative); Leukocyte Esterase,Urine Negative (Negative); Nitrite,Urine Negative (Negative); Specific Gravity,Urine Greater/Equal 1.030 (1.002-1.035)
[2018-08-30 18:46] LABS: Color,Urine Dark-Yellow (Yellw/Straw)
[2018-08-30 18:49] LABS: Bilirubin,Urine Negative (Negative); Ictotest,Urine Negative (Negative)
[2018-08-30 18:52] LABS: Amorphous Sediment,Urine Few /hpf; Bacteria,Urine Rare /hpf; Hyaline Casts,Urine 0-3 /lpf (0-3); Squamous Epithelial Cell,Urine 0-5 /hpf (0-5); WBC,Urine 0-5 /hpf (0-5)
[2018-08-30 18:53] LABS: Mucus,Urine Few /lpf (Occasional)
[2018-08-30] MEDS: Senna/Docusate Sodium 8.6/50 MG Tablet PO SCH (20:24)
[2018-08-31] MEDS: Heparin - SQ 10,000 UNITS/ML Vial SQ SCH ×2 (03:01→16:39)
[2018-08-31] MEDS: Sod Chloride 0.9% Inj 1,000 ML IV.CONT SCH ×3 (06:15→15:54)
[2018-08-31 07:11] LABS: Baso % (Auto) 0.7 % (0.0-2.0); Eos # (Auto) 0.3 th/mm3 (0.0-0.4); Eos % (Auto) 3.8 % (0.0-4.0); Hematocrit 32.7 % (39.0-51.0); Hemoglobin 11.1 gm/dL (13.0-17.0); Lymph # (Auto) 0.9 th/mm3 (1.0-4.8); Lymph % (Auto) 13.2 % (9.0-44.0); Mean Corpuscular Hemoglobin 33.4 pg (27.0-34.0); Mean Corpuscular Volume 98.2 fL (80.0-100.0); Mean Platelet Volume 7.6 fL (7.0-11.0); Mono # (Auto) 0.7 th/mm3 (0.0-0.9); Mono % (Auto) 9.7 % (0.0-8.0); Neut # (Auto) 5.1 th/mm3 (1.8-7.7); Neut % (Auto) 72.6 % (16.0-70.0); Platelet Count 146 th/mm3 (150-450); Red Blood Count 3.33 mil/mm3 (4.50-5.90); Red Cell Distribution Width 14.1 % (11.6-17.2)
[2018-08-31 07:42] LABS: Calcium 7.1 mg/dL (8.5-10.1); Carbon Dioxide 24.5 meq/L (21.0-32.0); Total Protein 5.4 g/dL (6.4-8.2)
--- NOTE | 2018-08-31 08:15 | P.PNGI ---
Subjective Interval history: Laying comfortably in bed pain much improved no nausea feeling better Physical Exam Vital signs: Vital Signs 08/30/18 11:20 08/30/18 14:38 08/30/18 16:00 Temperature 97.6 F 96.1 F L Pulse Rate 120 H 86 90 Respiratory Rate 20 16 20 Blood Pressure 134/82 122/74 133/74 Pulse Oximetry 98 98 96 08/30/18 17:19 08/30/18 20:00 08/30/18 20:05 Temperature 98.4 F Pulse Rate 91 H Respiratory Rate 18 Blood Pressure 129/74 Pulse Oximetry 98 96 98 08/30/18 23:42 08/31/18 00:00 Temperature 98.3 F Pulse Rate 85 Respiratory Rate 18 18 Blood Pressure 130/75 Pulse Oximetry 95 Intake & Output 08/30/18 08/31/18 08/31/18 18:59 06:59 18:59 Intake Total 2600 / 2600 1900 / 1900 Output Total 200 / 200 600 / 600 Balance 2400 / 2400 1300 / 1300 Weight 59.1 kg 61.8 kg Intake: IV 1999 1900 / 1900 NS Inj 1,000 ML @ 100 mls/hr IV 1900 / 1900 .CONT .Q10H [facility] Rx#:[id number] NS Inj 1,000 ML @ 1000 mls/hr 1999 IV.SIG BOLUS HARMNA Rx#:[id number] Oral 600 / 600 Output: Urine 200 / 200 600 / 600 Other: Weight On Admission 59.1 kg Narrative: Well-developed thin male in no acute distress Eyes nonicteric sclera dry oral mucosa Neck supple no JVD Lungs clear to auscultation Heart regular rate and rhythm Abdomen soft very mild tenderness in the upper abdomen no rebound or guarding no hepatosplenomegaly Extremities no edema clubbing or cyanosis Alert and oriented x3 Results - Labs CBC & Chem 7: 08/31/18 06:50 08/31/18 06:50 Laboratory Results - last 24 hr 08/30/18 08/30/18 08/30/18 13:20 13:20 18:30 CBC w Diff Auto diff final WBC 7.7 RBC 4.38 L Hgb 14.0 Hct 42.7 MCV 97.3 MCH 31.9 MCHC 32.8 RDW 14.1 Plt Count 217 MPV 7.6 Neut % (Auto) 73.6 H Lymph % (Auto) 13.4 [place] % (Auto) 9.8 H Eos % (Auto) 2.1 Baso % (Auto) 1.1 Neut # (Auto) 5.6 Lymph # (Auto) 1.0 [place] # (Auto) 0.8 Eos # (Auto) 0.2 Baso # (Auto) 0.1 WBC Differential . Differential Comment . Sodium 131 L Potassium 4.0 Chloride 95 L Carbon Dioxide 27.6 Anion Gap 8 BUN 28 H Creatinine 1.10 Estimated GFR 67 L Random Glucose 85 Calcium 8.6 Calcium Adj for Albumin Total Bilirubin 0.7 AST 132 H ALT 228 H Alkaline Phosphatase 381 H Total Protein 7.1 Albumin 2.7 L Lipase 3058 H Urine Color Dark-yellow Urine Clarity Clear Urine pH 6.0 Ur Specific [place] Greater/equal 1.030 Urine Protein 100 H Urine Glucose (UA) Negative Urine Ketones 15 H Urine Occult Blood Trace Urine Nitrate Negative Urine Bilirubin Negative Urine Ictotest Negative Urine Urobilinogen 1.0 Ur Leukocyte Esterase Negative Urine WBC 0-5 Ur Squamous Epith Cells 0-5 Amorphous Sediment Few H Urine Bacteria Rare H Hyaline Casts 0-3 Fine Granular Casts 1-3 H Urine Mucus Few H Micro UA Comment Culture not ind Ur Microscopic Review Microscopic reviewed Urine Culture Comments Culture not ind 08/31/18 08/31/18 06:50 06:50 CBC w Diff Auto diff final WBC 7.0 RBC 3.33 L Hgb 11.1 L D Hct 32.7 L MCV 98.2 MCH 33.4 MCHC 34.0 RDW 14.1 Plt Count 146 L D MPV 7.6 Neut % (Auto) 72.6 H Lymph % (Auto) 13.2 [place] % (Auto) 9.7 H Eos % (Auto) 3.8 Baso % (Auto) 0.7 Neut # (Auto) 5.1 Lymph # (Auto) 0.9 L [place] # (Auto) 0.7 Eos # (Auto) 0.3 Baso # (Auto) 0.0 WBC Differential . Differential Comment . Sodium 130 L Potassium 4.0 Chloride 97 L Carbon Dioxide 24.5 Anion Gap 9 BUN 18 Creatinine 0.93 Estimated GFR 81 L Random Glucose 66 L Calcium 7.1 L* D Calcium Adj for Albumin 8.7 Total Bilirubin 1.4 H AST 117 H ALT 175 H Alkaline Phosphatase 368 H Total Protein 5.4 L D Albumin 2.0 L D Lipase 2268 H Urine Color Urine Clarity Urine pH Ur Specific [place] Urine Protein Urine Glucose (UA) Urine Ketones Urine Occult Blood Urine Nitrate Urine Bilirubin Urine Ictotest Urine Urobilinogen Ur Leukocyte Esterase Urine WBC Ur Squamous Epith Cells Amorphous Sediment Urine Bacteria Hyaline Casts Fine Granular Casts Urine Mucus Micro UA Comment Ur Microscopic Review Urine Culture Comments Assessment and Plan - Plan Patient presenting with abdominal pain is noted to have elevated liver function tests and elevated lipase suggesting pancreatitis We will obtain an MRCP this is still pending if it is positive for choledocholithiasis patient will have to be transferred to the main hospital for an ERCP Will continue to monitor labs they appear to be improving Recommend hydration and pain control Agree with current supportive measures Further recommendations she will depend on the above findings and hospital course
[2018-08-31] MEDS: Sucralfate 1 GM Tablet PO SCH ×2 (09:34→17:22)
[2018-08-31] MEDS: Senna/Docusate Sodium 8.6/50 MG Tablet PO SCH ×2 (09:35→21:18)
--- NOTE | 2018-08-31 10:19 | P.PNIM ---
Subjective Interval history: Follow-up acute pancreatitis. Patient seen and examined, status post MRCP and waiting on results, sitting on side of bed comfortably in no apparent distress. Patient states that he is much improved overnight. His pain is controlled. Lipase is nicely trending down. Gastroenterology and to see patient this morning continue to monitor for now. Afebrile. Vital signs stable. Awaiting results of MRCP for further hospitalization course. is at bedside and updated as well. Physical Exam Vital signs: Vital Signs 08/30/18 11:20 08/30/18 14:38 08/30/18 16:00 Temperature 97.6 F 96.1 F L Pulse Rate 120 H 86 90 Respiratory Rate 20 16 20 Blood Pressure 134/82 122/74 133/74 Pulse Oximetry 98 98 96 08/30/18 17:19 08/30/18 20:00 08/30/18 20:05 Temperature 98.4 F Pulse Rate 91 H Respiratory Rate 18 Blood Pressure 129/74 Pulse Oximetry 98 96 98 08/30/18 23:42 08/31/18 00:00 08/31/18 08:00 Temperature 98.3 F 98.4 F Pulse Rate 85 84 Respiratory Rate 18 18 20 Blood Pressure 130/75 111/65 Pulse Oximetry 95 95 08/31/18 09:19 Temperature Pulse Rate Respiratory Rate Blood Pressure Pulse Oximetry 96 Intake & Output 08/30/18 08/31/18 08/31/18 18:59 06:59 18:59 Intake Total 2600 / 2600 1900 / 1900 Output Total 200 / 200 600 / 600 Balance 2400 / 2400 1300 / 1300 Weight 59.1 kg 61.8 kg Intake: IV 1999 1900 / 1900 NS Inj 1,000 ML @ 100 mls/hr IV 1900 / 1900 .CONT .Q10H [facility] Rx#:[id number] NS Inj 1,000 ML @ 1000 mls/hr 1999 IV.SIG BOLUS [facility] Rx#:[id number] Oral 600 / 600 Output: Urine 200 / 200 600 / 600 Other: Weight On Admission 59.1 kg Narrative: GENERAL: Well-developed, thin appearing male patient in no apparent distress SKIN: Warm and dry. No rash. Ashen. Right upper chest port in place. HEAD: Normocephalic. Atraumatic. EYES: Pupils equal and round. No scleral icterus. No injection or drainage. ENT: No nasal bleeding or discharge. Mucous membranes pink and moist. NECK: Supple. Trachea midline. CARDIOVASCULAR: Regular rate and rhythm. S1, S2 noted. No murmur appreciated. RESPIRATORY: No accessory muscle use. Clear to auscultation. Breath sounds equal bilaterally. GASTROINTESTINAL: Abdomen soft, nondistended. No tenderness this morning. Normoactive bowel sounds x4. MUSCULOSKELETAL: No obvious deformities. Extremities without clubbing, cyanosis , or edema. NEUROLOGICAL: Awake and alert. No obvious cranial nerve deficits. Motor grossly within normal limits. 5/5 muscle strength in bilateral upper and lower extremities. Normal speech. PSYCHIATRIC: Appropriate mood and affect; insight and judgment normal. 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 Acute pancreatitis, improving Transaminitis, mild secondary to above, improving -Patient complaints of a 7-day history of abdominal pain as well as nausea and vomiting. -Lipase over 3000 on presentation. Lipase trending down. Denies any history of pancreatitis. -CT abdomen/pelvis 2 days ago was reviewed outpatient did not show any acute findings. -Gastroenterology consulted, input and recommendations appreciated. MRCP ordered and done, awaiting results. -CBC and BMP reviewed, essentially unremarkable. Mild transaminitis noted. Likely secondary to acute pancreatitis. Denies any recent alcohol use. -Rest bowel. Ensure hydration continue IV fluids. -Pain control with IV Toradol and morphine as needed per pain scale. -Antiemetics as needed. -Supportive care. Check lipase in a.m. Hyponatremia, mild Sodium 131 on presentation. BUN 28. This should improve with IV hydration. Continue to monitor. Urothelial cancer with metastases -Patient follows with oncologist, Dr. Onofre, currently undergoing chemotherapy. -He is on Keytruda which can cause abdominal pain and transaminitis. He is also on Zometa which can cause abdominal pain -This is stable. Will continue to follow. -Continue tamsulosin. Tobacco abuse -Encouraged cessation. Nicotine patch offered, patient declined. DVT prophylaxis: SCDs. Heparin. Patient is refusing chemical DVT prophylaxis, afraid of bleeding. Explained risks and benefits extensively, patient still refusing. D/w patient, RN, [facility] Progress Note: Quality VTE Deep Vein Thrombosis/Pulmonary Embolism Present on Admission: No
--- NOTE | 2018-08-31 11:05 | MR ---
EXAM DATE: 08/31/2018 10:28 AM EST AGE/SEX: 68 years / Male INDICATIONS: Obstruction. Abdominal pain. CLINICAL DATA: This is the patient's initial encounter. Patient reports that signs and symptoms have been present for 1 day and indicates a pain score of 5/10. MEDICAL/SURGICAL HISTORY: Carcinoma, bladder. None. COMPARISON: POI, CT ABDOMEN AND PELVIS W/ CONTRAST, 08/28/2018. . TECHNIQUE: Multiplanar, multisequence images of the abdomen were obtained without contrast including dedicated cholangiographic images. FINDINGS: Liver: The liver is homogeneous and normal in signal intensity with no focal defects. Intrahepatic Bile Ducts: There is no intrahepatic biliary ductal dilatation. Common Bile Duct: Mild prominence of the extrahepatic biliary tree with common duct diameter approac [place] 8 mm. No evidence of filling defect or mass. Gallbladder: Minimally distended without stones. Slight pericholecystic fluid Pancreas: The pancreas appears normal in signal with no focal parenchymal abnormalities. The pancrea tic duct is normal in caliber with no filling defects, or obstructing lesions identified. Elsewhere, note is made of severe right hydronephrosis and hydroureter CONCLUSION: 1. Mild extra hepatic biliary ductal dilatation without clear etiology. 2. Minimal pericholecystic fluid Electronically signed by: Ruslan Walker MD Board Certified Radiologist 08/31/2018 11:04 AM EST
[2018-08-31] MEDS: Pantoprazole Inj 40 MG Vial IV.PUSH SCH (15:54)
[2018-09-01] MEDS: Sod Chloride 0.9% Inj 1,000 ML IV.CONT SCH ×4 (00:21→20:51)
[2018-09-01] MEDS: Heparin - SQ 10,000 UNITS/ML Vial SQ SCH ×3 (04:25→16:39)
[2018-09-01 06:46] LABS: Baso % (Auto) 0.4 % (0.0-2.0); Eos # (Auto) 0.2 th/mm3 (0.0-0.4); Eos % (Auto) 2.8 % (0.0-4.0); Hemoglobin 10.3 gm/dL (13.0-17.0); Lymph # (Auto) 0.9 th/mm3 (1.0-4.8); Lymph % (Auto) 11.6 % (9.0-44.0); Mean Corpuscular HGB Conc 33.3 % (32.0-36.0); Mean Corpuscular Hemoglobin 32.2 pg (27.0-34.0); Mean Corpuscular Volume 96.6 fL (80.0-100.0); Mean Platelet Volume 7.5 fL (7.0-11.0); Mono # (Auto) 0.6 th/mm3 (0.0-0.9); Mono % (Auto) 8.2 % (0.0-8.0); Neut # (Auto) 5.8 th/mm3 (1.8-7.7); Platelet Count 149 th/mm3 (150-450); Red Blood Count 3.21 mil/mm3 (4.50-5.90); Red Cell Distribution Width 13.7 % (11.6-17.2); White Blood Count 7.5 th/mm3 (4.0-11.0)
[2018-09-01 06:58] LABS: Chloride 100 meq/L (98-107); Potassium 3.7 meq/L (3.5-5.1); Sodium 132 meq/L (136-145)
[2018-09-01 07:22] LABS: Alanine Aminotransferase 133 U/L (12-78); Albumin 1.8 g/dL (3.4-5.0); Alkaline Phosphatase 408 U/L (45-117); Anion Gap 10 meq/L (5-15); Aspartate Aminotransferase 91 U/L (15-37); Blood Urea Nitrogen 11 mg/dL (7-18); Calcium 6.8 mg/dL (8.5-10.1); Carbon Dioxide 22.4 meq/L (21.0-32.0); Glomerular Filtration Rate Greater Than 89 mL/min (>89); Glucose,Random 78 mg/dL (74-106); Lipase 2929 U/L (73-393); Total Protein 5.1 g/dL (6.4-8.2)
[2018-09-01] MEDS: Sucralfate 1 GM Tablet PO SCH ×2 (08:54→16:37)
[2018-09-01] MEDS: Senna/Docusate Sodium 8.6/50 MG Tablet PO SCH ×2 (09:44→20:45)
--- NOTE | 2018-09-01 14:18 | P.PNIM ---
Subjective Interval history: Follow up acute pancreatitis. Patient seen and examined, lying in bed comfortably without pain. Tolerating full liquid diet. lipase still elevated. Will continue to asses. GI following and does not want DC until lipase trending down. Afebrile. VSS. Physical Exam Vital signs: Vital Signs 08/31/18 16:00 08/31/18 17:51 08/31/18 19:50 Temperature 97.2 F L Pulse Rate 89 Respiratory Rate 20 18 Blood Pressure 128/78 Pulse Oximetry 97 95 08/31/18 20:00 09/01/18 00:00 09/01/18 04:00 Temperature 100.1 F H 100.3 F H 98.5 F Pulse Rate 86 96 H Respiratory Rate 18 18 Blood Pressure 136/60 128/67 Pulse Oximetry 95 94 L 09/01/18 07:25 09/01/18 08:00 09/01/18 12:00 Temperature 97.5 F L 97.5 F L Pulse Rate 80 81 Respiratory Rate 22 22 Blood Pressure 121/65 117/62 Pulse Oximetry 97 98 96 Intake & Output 08/31/18 09/01/18 09/01/18 18:59 06:59 18:59 Intake Total 3100 / 3100 1480 / 1480 Output Total 200 / 200 400 / 400 Balance 2900 / 2900 1080 / 1080 Weight 61.7 kg Intake: IV 1000 / 1000 1000 / 1000 NS Inj 1,000 ML @ 100 mls/hr IV 1000 / 1000 1000 / 1000 .CONT .Q10H [facility] Rx#:[id number] Oral 2100 / 2100 480 / 480 Output: Urine 200 / 200 400 / 400 Other: # Voids 3 # Emeses 1 2 Narrative: GENERAL: Well-developed, thin appearing male patient in no apparent distress SKIN: Warm and dry. No rash. Ashen. Right upper chest port in place. HEAD: Normocephalic. Atraumatic. EYES: Pupils equal and round. No scleral icterus. No injection or drainage. ENT: No nasal bleeding or discharge. Mucous membranes pink and moist. NECK: Supple. Trachea midline. CARDIOVASCULAR: Regular rate and rhythm. S1, S2 noted. No murmur appreciated. RESPIRATORY: No accessory muscle use. Clear to auscultation. Breath sounds equal bilaterally. GASTROINTESTINAL: Abdomen soft, nondistended. No tenderness this morning. Normoactive bowel sounds x4. MUSCULOSKELETAL: No obvious deformities. Extremities without clubbing, cyanosis , or edema. NEUROLOGICAL: Awake and alert. No obvious cranial nerve deficits. Motor grossly within normal limits. 5/5 muscle strength in bilateral upper and lower extremities. Normal speech. PSYCHIATRIC: Appropriate mood and affect; insight and judgment normal. 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 Acute pancreatitis, slowly improving Transaminitis, mild secondary to above, slightly improving -Patient complaints of a 7-day history of abdominal pain as well as nausea and vomiting. -Lipase over 3000 on presentation. Lipase actually trending up. -CT abdomen/pelvis 2 days ago was reviewed outpatient did not show any acute findings. -Gastroenterology consulted, input and recommendations appreciated. MRCP ordered without significant findings. -CBC and BMP reviewed, essentially unremarkable. Mild transaminitis noted. Likely secondary to acute pancreatitis. Denies any recent alcohol use. -Full liquid. Ensure hydration, continue IV fluids. -Pain control with IV Toradol and morphine as needed per pain scale. -Antiemetics as needed. -Supportive care. -Check lipase in a.m. Hyponatremia, mild slowly improving. -Sodium 131 on presentation. BUN 28. This should improve with IV hydration. Continue to monitor. Urothelial cancer with metastases -Patient follows with oncologist, Dr. Onofre, currently undergoing chemotherapy. -He is on Keytruda which can cause abdominal pain and transaminitis. He is also on Zometa which can cause abdominal pain -This is stable. Will continue to follow. -Continue tamsulosin. Tobacco abuse -Encouraged cessation. Nicotine patch offered, patient declined. DVT prophylaxis: SCDs. Heparin. Patient is refusing chemical DVT prophylaxis, afraid of bleeding. Explained risks and benefits extensively, patient still refusing. D/w patient, RN, Dr. Galloway Progress Note: Quality VTE Deep Vein Thrombosis/Pulmonary Embolism Present on Admission: No
[2018-09-01] MEDS: Pantoprazole Inj 40 MG Vial IV.PUSH SCH (16:36)
--- NOTE | 2018-09-01 18:47 | P.PNGI ---
Subjective Interval history: Patient is sitting in bed visiting with his no complaint he said that he does not have pain now and he tolerated full liquid Physical Exam Vital signs: Vital Signs 08/31/18 19:50 08/31/18 20:00 09/01/18 00:00 Temperature 100.1 F H 100.3 F H Pulse Rate 86 96 H Respiratory Rate 18 18 Blood Pressure 136/60 128/67 Pulse Oximetry 95 95 94 L 09/01/18 04:00 09/01/18 07:25 09/01/18 08:00 Temperature 98.5 F 97.5 F L Pulse Rate 80 Respiratory Rate 22 Blood Pressure 121/65 Pulse Oximetry 97 98 09/01/18 12:00 09/01/18 16:00 Temperature 97.5 F L 97.3 F L Pulse Rate 81 78 Respiratory Rate 22 20 Blood Pressure 117/62 113/65 Pulse Oximetry 96 97 Intake & Output 08/31/18 09/01/18 09/01/18 18:59 06:59 18:59 Intake Total 3100 / 3100 1480 / 1480 1240 / 1240 Output Total 200 / 200 400 / 400 Balance 2900 / 2900 1080 / 1080 1240 / 1240 Weight 61.7 kg Intake: IV 1000 / 1000 1000 / 1000 1000 / 1000 NS Inj 1,000 ML @ 100 mls/hr IV 1000 / 1000 1000 / 1000 1000 / 1000 .CONT .Q10H [facility] Rx#:[id number] Oral 2100 / 2100 480 / 480 240 / 240 Output: Urine 200 / 200 400 / 400 Other: # Voids 3 # Emeses 1 2 - Constitutional no acute distress - Routine HEENT Exam Head: Present: normocephalic Eye: Present: EOMI, PERRL ENT: Present: mucous membranes moist - Routine Neck Exam Present: supple - Routine Cardiovascular Exam Present: RRR, S1, S2 - Routine Abdominal Exam Present: soft, normoactive bowel sounds Results - Labs CBC & Chem 7: 09/01/18 06:20 09/01/18 06:20 Laboratory Results - last 24 hr 09/01/18 09/01/18 06:20 06:20 CBC w Diff Auto diff final WBC 7.5 RBC 3.21 L Hgb 10.3 L Hct 31.0 L MCV 96.6 MCH 32.2 MCHC 33.3 RDW 13.7 Plt Count 149 L MPV 7.5 Neut % (Auto) 77.0 H Lymph % (Auto) 11.6 [place] % (Auto) 8.2 H Eos % (Auto) 2.8 Baso % (Auto) 0.4 Neut # (Auto) 5.8 Lymph # (Auto) 0.9 L [place] # (Auto) 0.6 Eos # (Auto) 0.2 Baso # (Auto) 0.0 WBC Differential . Differential Comment . Sodium 132 L Potassium 3.7 Chloride 100 Carbon Dioxide 22.4 Anion Gap 10 BUN 11 Creatinine 0.78 Estimated GFR Greater than 89 Random Glucose 78 Calcium 6.8 L* Calcium Adj for Albumin 8.6 Total Bilirubin 1.3 H AST 91 H ALT 133 H Alkaline Phosphatase 408 H Total Protein 5.1 L Albumin 1.8 L Lipase 2929 H Assessment and Plan - Plan Patient presenting with abdominal pain is noted to have elevated liver function tests and elevated lipase suggesting pancreatitis We will obtain an MRCP this is still pending if it is positive for choledocholithiasis patient will have to be transferred to the main hospital for an ERCP Will continue to monitor labs they appear to be improving Recommend hydration and pain control Agree with current supportive measures Further recommendations she will depend on the above findings and hospital course 09/01/2018 patient is doing better no abdominal pain there was mild dilation of the intrahepatic ducts but no filling defects no stones no abnormality on the pancreas, questionable etiology for the pancreatitis could be medicine related versus passing small stone versus other etiologies such as autoimmune pancreatitis We will advance diet as tolerated, will repeat lipase and if he is doing better he can be discharged home
[2018-09-02] MEDS: Sod Chloride 0.9% Inj 1,000 ML IV.CONT SCH ×3 (03:35→16:48)
[2018-09-02] MEDS: Heparin - SQ 10,000 UNITS/ML Vial SQ SCH ×2 (04:33→15:27)
[2018-09-02 08:16] LABS: Baso % (Auto) 0.1 % (0.0-2.0); Eos # (Auto) 0.2 th/mm3 (0.0-0.4); Eos % (Auto) 2.7 % (0.0-4.0); Hematocrit 31.2 % (39.0-51.0); Hemoglobin 10.5 gm/dL (13.0-17.0); Lymph # (Auto) 0.9 th/mm3 (1.0-4.8); Lymph % (Auto) 14.2 % (9.0-44.0); Mean Corpuscular HGB Conc 33.7 % (32.0-36.0); Mean Corpuscular Hemoglobin 32.4 pg (27.0-34.0); Mean Corpuscular Volume 96.2 fL (80.0-100.0); Mean Platelet Volume 7.8 fL (7.0-11.0); Mono # (Auto) 0.6 th/mm3 (0.0-0.9); Mono % (Auto) 9.3 % (0.0-8.0); Neut # (Auto) 4.4 th/mm3 (1.8-7.7); Neut % (Auto) 73.7 % (16.0-70.0); Platelet Count 159 th/mm3 (150-450); Red Blood Count 3.24 mil/mm3 (4.50-5.90); Red Cell Distribution Width 13.6 % (11.6-17.2); White Blood Count 6.1 th/mm3 (4.0-11.0)
[2018-09-02] MEDS: Sucralfate 1 GM Tablet PO SCH ×2 (08:20→16:45)
[2018-09-02] MEDS: Senna/Docusate Sodium 8.6/50 MG Tablet PO SCH ×2 (08:21→20:39)
[2018-09-02 08:27] LABS: Chloride 100 meq/L (98-107); Potassium 3.4 meq/L (3.5-5.1); Sodium 131 meq/L (136-145)
[2018-09-02 08:39] LABS: Alanine Aminotransferase 134 U/L (12-78); Alkaline Phosphatase 517 U/L (45-117); Anion Gap 8 meq/L (5-15); Aspartate Aminotransferase 100 U/L (15-37); Blood Urea Nitrogen 7 mg/dL (7-18); Carbon Dioxide 23.3 meq/L (21.0-32.0); Glomerular Filtration Rate Greater Than 89 mL/min (>89); Glucose,Random 82 mg/dL (74-106); Lipase 5918 U/L (73-393); Total Protein 5.3 g/dL (6.4-8.2)
--- NOTE | 2018-09-02 09:09 | P.PNIM ---
Subjective Interval history: Follow up acute pancreatitis. Patient seen and examined, sitting on bed comfortably in no apparent distress. Actually tolerating full liquid diet without any problems, denies any abdominal pain, nausea or vomiting. Positive bowel movement is actually formed, spoke to GI today, lipase is trending up. We will repeat CT scan. Afebrile. Vital signs stable. Physical Exam Vital signs: Vital Signs 09/01/18 12:00 09/01/18 16:00 09/01/18 19:40 Temperature 97.5 F L 97.3 F L Pulse Rate 81 78 Respiratory Rate 22 20 Blood Pressure 117/62 113/65 Pulse Oximetry 96 97 96 09/01/18 20:45 09/02/18 00:00 Temperature 98.1 F 99.8 F H Pulse Rate 82 82 Respiratory Rate 18 18 Blood Pressure 129/69 149/72 H Pulse Oximetry 98 97 Intake & Output 09/01/18 09/02/18 09/02/18 18:59 06:59 18:59 Intake Total 1240 / 1240 2720 / 2720 Balance 1240 / 1240 2720 / 2720 Weight 61.6 kg Intake: IV 1000 / 1000 1999 NS Inj 1,000 ML @ 100 mls/hr IV 1000 / 1000 1999 .CONT .Q10H [facility] Rx#:[id number] Oral 240 / 240 720 / 720 Other: # Voids 3 1 # Bowel Movements 2 Narrative: GENERAL: Well-developed, thin appearing male patient in no apparent distress SKIN: Warm and dry. No rash. Ashen. Right upper chest port in place. HEAD: Normocephalic. Atraumatic. EYES: Pupils equal and round. No scleral icterus. No injection or drainage. ENT: No nasal bleeding or discharge. Mucous membranes pink and moist. NECK: Supple. Trachea midline. CARDIOVASCULAR: Regular rate and rhythm. S1, S2 noted. No murmur appreciated. RESPIRATORY: No accessory muscle use. Clear to auscultation. Breath sounds equal bilaterally. GASTROINTESTINAL: Abdomen soft, nondistended. No tenderness this morning. Normoactive bowel sounds x4. MUSCULOSKELETAL: No obvious deformities. Extremities without clubbing, cyanosis , or edema. NEUROLOGICAL: Awake and alert. No obvious cranial nerve deficits. Motor grossly within normal limits. 5/5 muscle strength in bilateral upper and lower extremities. Normal speech. PSYCHIATRIC: Appropriate mood and affect; insight and judgment normal. Results Labs CBC & Chem 7: 09/02/18 06:34 09/02/18 06:34 Assessment and Plan Plan This is a 68-year-old male patient with a known medical history of urothelial cancer with metastases to the lungs, bone and retroperitoneum who presented to the ED with complaints of abdominal pain times 7 days as well as nausea and vomiting. Acute pancreatitis, worsening. Transaminitis, mild secondary to above, slightly improving -Patient complaints of a 7-day history of abdominal pain as well as nausea and vomiting. -Lipase over 3000 on presentation. Lipase actually trending up today. -CT abdomen/pelvis 2 days ago was reviewed outpatient did not show any acute findings. Will repeat today. -Gastroenterology consulted, input and recommendations appreciated. MRCP ordered without significant findings. -CBC and BMP reviewed, essentially unremarkable. Mild transaminitis noted. Likely secondary to acute pancreatitis. Denies any recent alcohol use. -Full liquid. Ensure hydration, continue IV fluids. -Pain control with IV Toradol and morphine as needed per pain scale. -Antiemetics as needed. -Supportive care. -Check lipase in a.m. we will repeat CT scan today. Hyponatremia, mild slowly improving. -Sodium 131 on presentation. BUN 28. This should improve with IV hydration. Continue to monitor. Urothelial cancer with metastases -Patient follows with oncologist, Dr. Onofre, currently undergoing chemotherapy. -He is on Keytruda which can cause abdominal pain and transaminitis. He is also on Zometa which can cause abdominal pain -May need to consult oncologist depending on abdominal CT findings for further recommendations due to lipase trending up. -Continue tamsulosin. Tobacco abuse -Encouraged cessation. Nicotine patch offered, patient declined. DVT prophylaxis: SCDs. Heparin. Patient is refusing chemical DVT prophylaxis, afraid of bleeding. Explained risks and benefits extensively, patient still refusing. D/w patient, RN, Dr. Cedillo Progress Note: Quality VTE Deep Vein Thrombosis/Pulmonary Embolism Present on Admission: No
[2018-09-02] MEDS ORDERED: Diatrizoate Meglum/Diatrizoate Sod Liq 9 ML UDC PO ONE (09:23)
--- NOTE | 2018-09-02 12:31 | CT ---
EXAM DATE: 09/02/2018 12:11 PM EST AGE/SEX: 68 years / Male INDICATIONS: Pancreatitis, Abdomen Pain CLINICAL DATA: This is the patient's initial encounter. Patient reports that signs and symptoms have been present for 3 days and indicates a pain score of 0/10. MEDICAL/SURGICAL HISTORY: Carcinoma, bladder. Deep venous thrombosis. . Cardiac Catheterizatio n ORAL CONTRAST: Patient refused oral contrast. RADIATION DOSE: 5.33 CTDI (mGy) COMPARISON: POI, CT ABDOMEN AND PELVIS W/ CONTRAST, 08/28/2018. . TECHNIQUE: Multiple contiguous axial images were obtained through the abdomen and pelvis following b olus infusion of 96ML ml Omnipaque 350 (iohexol) nonionic water-soluble contrast as a single exam d ose. Patient refused oral contrast. Using automated exposure control and adjustment of the mA and/or kV according to patient size, radiation dose was kept as low as reasonably achievable to obtain opti mal diagnostic quality images. DICOM format image data is available electronically for review and co mparison. FINDINGS: Since the prior study, some wall thickening has developed of the colon and with some mild edema in th e pericolonic fat. This appears to mostly involve the hepatic flexure and proximal transverse colon. No abscess, perforation or obstruction. I don't see any inflammatory changes centered around the panc reas. There is small ascites now present. Vague wall thickening/nodularity again seen right posterolateral aspect of the urinary bladder and wi th persistent severe hydronephrosis/hydroureter. There is mild atrophy of the right kidney, similar t o before. However, some right perinephric edema has developed. Numerous lung base nodules consistent with metastatic disease again seen. CONCLUSION: 1. Distal right ureteral obstruction is again noted and not significantly changed but some perinephr ic edema has developed around the right kidney. This is nonspecific but could be indicative of develo ping right-sided pyelonephritis. 2. Apparent interim development of colitis in the region of the hepatic flexure and proximal transve rse colon. An infectious or inflammatory etiology is possible; alternatively, this may be reactive se condary to the adjacent right renal inflammatory changes. 3. I don't clearly see any inflammatory changes centered around the pancreas. Pancreatic parenchyma enhances normally. Electronically signed by: Ruslan Vera MD Board Certified Radiologist 09/02/2018 12:29 PM EST
--- NOTE | 2018-09-02 14:48 | P.PNGI ---
Subjective Interval history: Patient is sitting in bed he is alert and oriented to time place and person. He is attended by his . He denies abdominal pain nausea vomiting. There is been no diarrhea. No hematochezia or hematemesis. I reviewed the results of the recent CT scan done earlier today that revealed possible right pyelonephritis and thickening of the colon in the area of the hepatic flexure to the proximal transverse colon. The patient reiterates that he has had no diarrhea no Previously patient's MRCP August 31, 2018 showed mild extrahepatic bile duct dilation minimal pericholecystic fluid. Despite this, his bilirubin alkaline phosphate lipase continue to increase. Despite the changes in the lab that would indicate a worsening of his pancreatitis symptomatically he is improving. Physical Exam Vital signs: Vital Signs 09/01/18 16:00 09/01/18 19:40 09/01/18 20:45 Temperature 97.3 F L 98.1 F Pulse Rate 78 82 Respiratory Rate 20 18 Blood Pressure 113/65 129/69 Pulse Oximetry 97 96 98 09/02/18 00:00 09/02/18 08:00 09/02/18 12:35 Temperature 99.8 F H 97.4 F L 97.8 F Pulse Rate 82 83 81 Respiratory Rate 18 20 20 Blood Pressure 149/72 H 137/76 151/74 H Pulse Oximetry 97 98 97 Intake & Output 09/01/18 09/02/18 09/02/18 18:59 06:59 18:59 Intake Total 1240 / 1240 2720 / 2720 Balance 1240 / 1240 2720 / 2720 Weight 61.6 kg Intake: IV 1000 / 1000 1999 / 1999 NS Inj 1,000 ML @ 100 mls/hr IV 1000 / 1000 1999 .CONT .Q10H [facility] Rx#:[id number] Oral 240 / 240 720 / 720 Other: # Voids 3 1 # Bowel Movements 2 Narrative: Well-developed thin male in no acute distress Eyes nonicteric sclera dry oral mucosa Neck supple no JVD Lungs clear to auscultation Heart regular rate and rhythm Abdomen soft very mild tenderness in the upper abdomen no rebound or guarding no hepatosplenomegaly Extremities no edema clubbing or cyanosis Alert and oriented x3 Results - Labs CBC & Chem 7: 09/02/18 06:34 09/02/18 06:34 Laboratory Results - last 24 hr 09/02/18 09/02/18 06:34 06:34 CBC w Diff Auto diff final WBC 6.1 RBC 3.24 L Hgb 10.5 L Hct 31.2 L MCV 96.2 MCH 32.4 MCHC 33.7 RDW 13.6 Plt Count 159 MPV 7.8 Neut % (Auto) 73.7 H Lymph % (Auto) 14.2 [place] % (Auto) 9.3 H Eos % (Auto) 2.7 Baso % (Auto) 0.1 Neut # (Auto) 4.4 Lymph # (Auto) 0.9 L [place] # (Auto) 0.6 Eos # (Auto) 0.2 Baso # (Auto) 0.0 WBC Differential . Differential Comment . Sodium 131 L Potassium 3.4 L Chloride 100 Carbon Dioxide 23.3 Anion Gap 8 BUN 7 Creatinine 0.74 Estimated GFR Greater than 89 Random Glucose 82 Calcium 7.0 L* Calcium Adj for Albumin 8.6 Total Bilirubin 1.4 H AST 100 H ALT 134 H Alkaline Phosphatase 517 H Total Protein 5.3 L Albumin 2.0 L Lipase 5918 H - Imaging Impressions Abdomen/Pelvis CT 09/02/18 00:00 CONCLUSION: 1. Distal right ureteral obstruction is again noted and not significantly changed but some perinephric edema has developed around the right kidney. This is nonspecific but could be indicative of developing right-sided pyelonephritis. 2. Apparent interim development of colitis in the region of the hepatic flexure and proximal transverse colon. An infectious or inflammatory etiology is possible; alternatively, this may be reactive secondary to the adjacent right renal inflammatory changes. 3. I don't clearly see any inflammatory changes centered around the pancreas. Pancreatic parenchyma enhances normally. Assessment and Plan (1) Acute pancreatitis Status: Acute Code(s): K85.90 - Acute pancreatitis without necrosis or infection, unspecified - Attending Attestation N.p.o. after midnight. Recheck CBC CMP and lipase in the morning Nursing staff notified that he may have a right pyelonephritis tic inform the attending physician We will hold off on ERCP at this time since MRCP 2 days ago was essentially unrevealing Will defer to oncology for management of the stage IV bladder
[2018-09-02] MEDS: Pantoprazole Inj 40 MG Vial IV.PUSH SCH (16:44)
[2018-09-03] MEDS: Sod Chloride 0.9% Inj 1,000 ML IV.CONT SCH ×3 (02:11→21:01)
[2018-09-03] MEDS: Heparin - SQ 10,000 UNITS/ML Vial SQ SCH ×2 (03:21→15:37)
[2018-09-03 07:53] LABS: Baso % (Auto) 0.4 % (0.0-2.0); Eos # (Auto) 0.2 th/mm3 (0.0-0.4); Eos % (Auto) 3.6 % (0.0-4.0); Hematocrit 33.6 % (39.0-51.0); Hemoglobin 11.4 gm/dL (13.0-17.0); Lymph # (Auto) 0.9 th/mm3 (1.0-4.8); Lymph % (Auto) 14.1 % (9.0-44.0); Mean Corpuscular Hemoglobin 32.9 pg (27.0-34.0); Mean Corpuscular Volume 96.7 fL (80.0-100.0); Mean Platelet Volume 7.7 fL (7.0-11.0); Mono # (Auto) 0.6 th/mm3 (0.0-0.9); Mono % (Auto) 9.4 % (0.0-8.0); Neut # (Auto) 4.4 th/mm3 (1.8-7.7); Neut % (Auto) 72.5 % (16.0-70.0); Platelet Count 176 th/mm3 (150-450); Red Blood Count 3.48 mil/mm3 (4.50-5.90); Red Cell Distribution Width 14.1 % (11.6-17.2); White Blood Count 6.1 th/mm3 (4.0-11.0)
[2018-09-03 08:03] LABS: Chloride 101 meq/L (98-107); Potassium 3.6 meq/L (3.5-5.1); Sodium 133 meq/L (136-145)
[2018-09-03 08:25] LABS: Alanine Aminotransferase 164 U/L (12-78); Albumin 2.1 g/dL (3.4-5.0); Alkaline Phosphatase 607 U/L (45-117); Anion Gap 8 meq/L (5-15); Aspartate Aminotransferase 121 U/L (15-37); Blood Urea Nitrogen 4 mg/dL (7-18); Calcium 7.4 mg/dL (8.5-10.1); Carbon Dioxide 24.4 meq/L (21.0-32.0); Glomerular Filtration Rate Greater Than 89 mL/min (>89); Glucose,Random 90 mg/dL (74-106); Lipase 8339 U/L (73-393); Total Protein 5.6 g/dL (6.4-8.2)
[2018-09-03] MEDS: Sucralfate 1 GM Tablet PO SCH ×2 (08:29→18:29)
[2018-09-03] MEDS: Senna/Docusate Sodium 8.6/50 MG Tablet PO SCH ×2 (08:31→21:01)
--- NOTE | 2018-09-03 08:39 | P.PNIM ---
Subjective Interval history: Follow up acute pancreatitis and transaminitis. Patient seen and examined, lying in bed comfortably in nad. No pain. Tolerating full liquids. Worsening labs. No diarrhea. No abdominal pain, no nausea or vomiting. Spoke to GI about worsening labs. Awaiting recs. Spoke to at length regarding plan and findings so far. Physical Exam Vital signs: Vital Signs 09/02/18 12:35 09/02/18 16:49 09/02/18 21:13 Temperature 97.8 F 98 F 97.8 F Pulse Rate 81 83 81 Respiratory Rate 20 20 20 Blood Pressure 151/74 H 136/79 154/85 H Pulse Oximetry 97 99 96 09/03/18 00:03 Temperature 98.9 F Pulse Rate 80 Respiratory Rate 18 Blood Pressure 146/91 H Pulse Oximetry 95 Intake & Output 09/02/18 09/03/18 09/03/18 18:59 06:59 18:59 Intake Total 2460 / 2460 1240 / 1240 Output Total 200 / 200 Balance 2260 / 2260 1240 / 1240 Weight 60.9 kg Intake: IV 1000 / 1000 1000 / 1000 NS Inj 1,000 ML @ 100 mls/hr IV 1000 / 1000 1000 / 1000 .CONT .Q10H [facility] Rx#:[id number] Oral 1460 / 1460 240 / 240 Output: Urine 200 / 200 Other: # Voids 4 4 Date of Last Bowel Movement 09/02/18 Narrative: GENERAL: Well-developed, thin appearing male patient in no apparent distress SKIN: Warm and dry. No rash. Ashen. Right upper chest port in place. HEAD: Normocephalic. Atraumatic. EYES: Pupils equal and round. No scleral icterus. No injection or drainage. ENT: No nasal bleeding or discharge. Mucous membranes pink and moist. NECK: Supple. Trachea midline. CARDIOVASCULAR: Regular rate and rhythm. S1, S2 noted. No murmur appreciated. RESPIRATORY: No accessory muscle use. Clear to auscultation. Breath sounds equal bilaterally. GASTROINTESTINAL: Abdomen soft, nondistended. No tenderness this morning. Normoactive bowel sounds x4. MUSCULOSKELETAL: No obvious deformities. Extremities without clubbing, cyanosis , or edema. NEUROLOGICAL: Awake and alert. No obvious cranial nerve deficits. Motor grossly within normal limits. 5/5 muscle strength in bilateral upper and lower extremities. Normal speech. PSYCHIATRIC: Appropriate mood and affect; insight and judgment normal. Results Labs CBC & Chem 7: 09/03/18 07:20 09/03/18 07:20 Imaging Imaging: Impressions Abdomen/Pelvis CT 09/02/18 00:00 CONCLUSION: 1. Distal right ureteral obstruction is again noted and not significantly changed but some perinephric edema has developed around the right kidney. This is nonspecific but could be indicative of developing right-sided pyelonephritis. 2. Apparent interim development of colitis in the region of the hepatic flexure and proximal transverse colon. An infectious or inflammatory etiology is possible; alternatively, this may be reactive secondary to the adjacent right renal inflammatory changes. 3. I don't clearly see any inflammatory changes centered around the pancreas. Pancreatic parenchyma enhances normally. 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 Acute pancreatitis, worsening. Transaminitis, mild secondary to above, worsening. -Patient complaints of a 7-day history of abdominal pain as well as nausea and vomiting. Resolved. -Lipase over 3000 on presentation. Lipase actually trending up today. -CT abdomen/pelvis 2 days ago was reviewed outpatient did not show any acute findings. -Repeat CT on 09/02 showing developing interim colitis. Patient has absolute no symptoms. No pain. No diarrhea. -Also shows some right pyelonephritis without any symptoms. Creatinine and GFR normal. Urinating well. UA negative. Spoke with urologist who states that his may be secondary to bladder CA and would not do any intervention at this time without symptoms. Will continue to monitor. -Gastroenterology consulted, input and recommendations appreciated. MRCP ordered without significant findings. Awaiting recs for worsening LFTs. -CBC and BMP reviewed, essentially unremarkable. Denies any recent alcohol use. -Full liquid, tolerating well, Will place on NPO for now incase intervention needed. -Ensure hydration, continue IV fluids. -Pain control with IV Toradol and morphine as needed per pain scale. No pain. -Antiemetics as needed. -Supportive care. Hyponatremia, mild slowly improving. -Sodium 131 on presentation. BUN 28. This should improve with IV hydration. Continue to monitor. Urothelial cancer with metastases -Patient follows with oncologist, Dr. Onofre, currently undergoing chemotherapy. Last chemo 1 month ago. -He is on Keytruda which can cause abdominal pain and transaminitis. He is also on Zometa which can cause abdominal pain. -May need to consult oncologist if needed for further input. Tobacco abuse -Encouraged cessation. Nicotine patch offered, patient declined. DVT prophylaxis: SCDs. Heparin. Patient is refusing chemical DVT prophylaxis, afraid of bleeding. Explained risks and benefits extensively, patient still refusing. D/w patient, RN, Dr. Cedillo Progress Note: Quality VTE Deep Vein Thrombosis/Pulmonary Embolism Present on Admission: No _ (1) Acute pancreatitis Qualifiers: Acute pancreatitis complication: Pancreatitis type:
[2018-09-03] MEDS ORDERED: MethylPREDNISolone Sod Succinate Inj 125 MG/2 ML Vial IV.PUSH ONE (09:08)
[2018-09-03 09:11] LABS: Amylase 447 U/L (25-115)
[2018-09-03] MEDS: Piperacil/Tazo 4.5 GM Premix 4.5 GM/100 ML BAG IV.SIG SCH ×3 (11:50→23:44)
--- NOTE | 2018-09-03 13:04 | P.CON ---
History of Present Illness Service: Hematology/Oncology. Consult date: 09/03/18 Requesting Physician: Peter Galloway Reason for Consult: Metastatic bladder cancer. Suspected autoimmune hepatitis. Primary Care Provider: Yunier Joseph MD Chief Complaint: Burning epigastric pain (now resolved). History of Present Illness: Mr. 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 His disease progressed on first-line palliative systemic therapy which consisted of cisplatin and gemcitabine and in May 2018 he was initiated on palliative single agent immunotherapy with pembrolizumab (Keytruda) . He has thus far received 4 infusions of this treatment and the most recent infusion was delivered in mid July 2018. The patient reports presenting to the [place] oncology clinic on Tuesday; 08/30/2018. He reports symptoms of epigastric pain and burning and was advised to come into the emergency department by his primary oncologist Dr. Red. Patient reports his epigastric abdominal pain has since then completely resolved. He denies having noticed any overt signs of bleeding specifically hematochezia or melena, he tells me his diet is back to normal. Since being hospitalized he is noted to have elevation in serum LFTs with his AST, ALT and alkaline phosphatase levels being several times over the upper limits of normal whereas in mid July 2018 when he was last received pembrolizumab his LFTs were completely within normal limits. Additionally, patient is noted to have elevated lipase levels the etiology of which is not known. The patient denies being an alcoholic, he denies any alcohol consumption in fact and also denies having been on any new medications other than occasional acetaminophen for management of abdominal pain. CT imaging of the abdomen pelvis as well as MR LUÍS indicate no causative etiology secondary to either mechanical obstruction of the biliary tree or evidence of pancreatitis or hepatitis. The hematology/oncology service been asked to see him to determine if his current LFT elevation and lipase elevation may in any part be related to recent immunotherapy delivered. Review of Systems Constitutional: Denies anorexia, Denies daytime sleepiness, Denies lack of energy, Denies weakness, Denies weight gain, Denies weight loss Eyes: Denies change in vision Ears, Nose, Mouth, and Throat: Denies change in voice, Denies headache(s), Denies hoarseness, Denies throat swelling, Denies tongue swelling Cardiovascular: Denies chest pain, Denies leg sores, Denies lightheadedness, Denies shortness of breath with activity, Denies shortness of breath when lying down, Denies shortness of breath causing sudden awakening Respiratory: Denies change in phlegm color, Denies chest congestion, Denies cough, Denies shortness of breath, Denies shortness of breath with activity, Denies snoring, Denies wheezing Gastrointestinal: Reports heartburn (He does report transient heartburn, now resolved.), Denies abdominal pain, Denies bloating, Denies bright, red blood in stools, Denies change in bowel habits, Denies loose stools, Denies nausea, Denies pain with swallowing, Denies vomiting, Denies vomiting blood Genitourinary: Denies blood in urine, Denies urinary frequency, Denies urinary hesitancy, Denies urinary urgency Musculoskeletal: Denies back pain Skin/Breast: Denies bleeding lesions, Denies breast swelling, Denies change in hair, Denies redness, Denies skin ulcer, Denies sores, Denies yellowing of the skin Neurologic: Denies abnormal speech, Denies frequent falls, Denies headache(s), Denies memory loss Psychiatric: Denies anxiety Endocrine: Denies cold intolerance Hematologic/Lymphatic: Denies easy bleeding Allergic/Immunologic: Denies GI upset with certain foods PMFSH - History History Provided By: Patient - Medical History Medical History: Medical History (Last Updated 09/03/18 @ 12:57 by George Martin MD) Bladder cancer (Acute) Pulmonary nodules Deep venous thrombosis of right upper extremity Myelosuppression after chemotherapy - Surgical History Surgical History: Surgical History (Last Reviewed 09/03/18 @ 12:57 by George Martin MD) H/O cardiac catheterization History of transurethral destruction of bladder lesion Status post cystoscopy - Family History Family History: Family History (Last Updated 09/03/18 @ 12:58 by George Martin MD) Father Coronary artery disease - Social History I have reviewed the patient's Social History: Yes - Tobacco History Second Hand Smoke Exposure: Yes Tobacco Use In Past 30 Days: Yes Smoking Status: Current every day smoker Tobacco Type: Cigarettes - Alcohol History How Often Do You Have a Drink Containing Alcohol: Never - Substance Use History Substance History: No History of Abuse - Travel History Recent Travel in the [place] Within the Last 8 Weeks: No Recent Travel Out of the Country Within the Last 8 Weeks: No - Immunization History Tetanus Immunization: Unsure Hx Influenza Vaccine This Season: No Medications and Allergies Active Medications: Active Medications Acetaminophen (Tylenol) 650 mg PO Q4H PRN PRN Reason: Temp > 100.4 Al Hydroxide/Mg Hydroxide (Milk Of Magnesia Liq) 30 ml PO Q12H PRN PRN Reason: Mild Constipation Bisacodyl (Dulcolax Supp) 10 mg RECTAL DAILY PRN PRN Reason: SEVERE CONSITIPATION Heparin Sodium (Porcine) (Heparin Inj) 5,000 units SQ Q12H [facility] Last Admin: 09/03/18 03:21 Dose: Not Given Hydromorphone HCl (Dilaudid) 1 mg PO Q4H PRN PRN Reason: PAIN SCALE 3 TO 5 Hydromorphone HCl (Dilaudid) 2 mg PO Q4H PRN PRN Reason: PAIN SCALE 6 TO 10 Last Admin: 08/31/18 17:21 Dose: 2 mg Sodium Chloride (Ns Inj) 1,000 mls @ 100 mls/hr IV.CONT .Q10H [facility] Last Admin: 09/03/18 02:11 Dose: 100 mls/hr Piperacillin/Tazobactam/Dextrose (Zosyn 4.5 Gm Premix) 4.5 gm in 100 mls @ 200 mls/hr IV.SIG Q6H [facility] Last Infusion: 09/03/18 12:20 Dose: Infused Ketorolac Tromethamine (Toradol Inj) 30 mg IV.PUSH Q6H PRN PRN Reason: PAIN 6-10;IF UNABLE TO TAKE PO Stop: 09/04/18 14:34 Ketorolac Tromethamine (Toradol Inj) 15 mg IV.PUSH Q6H PRN PRN Reason: PAIN 3-5; IF UABLE TO TAKE PO Stop: 09/04/18 14:34 Lactulose (Lactulose Liq) 30 ml PO DAILY PRN PRN Reason: SEVERE CONSITIPATION Methylprednisolone Sodium Succinate (Solumedrol Inj) 60 mg IV.PUSH Q6H [facility] Morphine Sulfate (Morphine Inj) 4 mg IV.PUSH Q3H PRN PRN Reason: BREAKTHROUGH PAIN Naloxone HCl (Narcan Inj) 0.4 mg IV.PUSH UNSCH PRN PRN Reason: SEE LABEL COMMENTS Ondansetron HCl (Zofran Inj) 4 mg IV.PUSH Q6H PRN PRN Reason: NAUSEA OR VOMITING Last Admin: 08/31/18 18:07 Dose: 4 mg Pantoprazole Sodium (Protonix Inj) 40 mg IV.PUSH Q24H [facility] Last Admin: 09/02/18 16:44 Dose: 40 mg Senna/Docusate Sodium (Tonie-Colace) 1 tab PO BID [facility] Last Admin: 09/03/18 08:31 Dose: Not Given Sennosides (Senokot) 17.2 mg PO Q12H PRN PRN Reason: Moderate Constipation Sodium Chloride (Ns Flush) 2 ml IV.FLUSH BID [facility] Last Admin: 09/03/18 08:29 Dose: Not Given Sodium Chloride (Ns Flush) 2 ml IV.FLUSH PRN PRN PRN Reason: FLUSH AFTER USING IV ACCESS [facility] Admin: 09/03/18 08:29 Dose: 1 gm Tamsulosin HCl (Flomax) 0.4 mg PO [facility] Last Admin: 09/02/18 20:39 Dose: 0.4 mg Allergies Allergy/AdvReac Type Severity Reaction Status Date / Time ibuprofen Allergy Unknown Arrhythmias Verified 08/30/18 11:20 Home Medications Medication Instructions Recorded Confirmed Type tamsulosin [Flomax] 0.4 mg PO 02/19/18 08/30/18 History Tylenol 1,000 mg BID 08/30/18 08/30/18 History bisacodyl 5 mg 08/30/18 08/30/18 History cetirizine 10 mg PO 08/30/18 08/30/18 History cholecalciferol (vitamin D3) 5,000 unit PO DAILY 08/30/18 08/30/18 History ondansetron HCl 8 mg PO DIRECTED PRN 08/30/18 08/30/18 History sennosides-docusate sodium 1 tab PO DAILY 08/30/18 08/30/18 History Physical Exam Vital signs: Vital Signs 09/02/18 16:49 09/02/18 21:13 09/03/18 00:03 Temperature 98 F 97.8 F 98.9 F Pulse Rate 83 81 80 Respiratory Rate 20 20 18 Blood Pressure 136/79 154/85 H 146/91 H Pulse Oximetry 99 96 95 09/03/18 08:00 Temperature 96.7 F L Pulse Rate 81 Respiratory Rate 17 Blood Pressure 131/103 H Pulse Oximetry 98 Intake & Output 09/02/18 09/03/18 09/03/18 18:59 06:59 18:59 Intake Total 2460 / 2460 1240 / 1240 100 / 100 Output Total 200 / 200 Balance 2260 / 2260 1240 / 1240 100 / 100 Weight 60.9 kg Intake: IV 1000 / 1000 1000 / 1000 100 / 100 NS Inj 1,000 ML @ 100 mls/hr IV 1000 / 1000 1000 / 1000 .CONT .Q10H [facility] Rx#:[id number] Zosyn 4.5 GM Premix 4.5 gm In 100 / 100 100 ml @ 200 mls/hr IV.SIG Q6H [facility] Rx#:[id number] Oral 1460 / 1460 240 / 240 Output: Urine 200 / 200 Other: # Voids 4 4 Date of Last Bowel Movement 09/02/18 Narrative: General: Patient is a middle-aged/elderly male, he sitting up in bed, he appears to be no acute distress he has a somewhat disheveled appearance but appears to be cooperative and pleasant. HEENT: Head atraumatic normocephalic, conjunctivae are mildly pale, sclerae are anicteric, PERRLA, EOMI. Oral exam: No pharyngeal erythema, no ulceration no masses. Neck examination: No palpable cervical or supraclavicular adenopathy. Respiratory exam: On posterior examination: Good air movement bilaterally without any added breath sounds specifically rhonchi rales or crepitus. Cardiovascular: Regular rate and rhythm, S1-S2 no obvious murmurs rubs gallops. Good peripheral pulses. No pretibial edema no calf tenderness. Abdominal examination: Thin belly, soft, no palpable hepatosplenomegaly, positive bowel sounds, some epigastric tenderness. Muscular skeletal: Adequate muscle mass, tone and strength. No areas of tenderness. Skin examination: No skin lesions identified, no bruises no bleeding no rashes essentially nonfocal examination. MRI TECHNOLOGIST: No focal sensorimotor deficits, 5 x 5 strength of the upper and lower extremities on flexion and extension. Psychiatric: Awake, alert x3, pleasant disposition, appropriate affect, has clear understanding of discussion today. Results - Labs CBC & Chem 7: 09/03/18 07:20 09/03/18 07:20 Labs: Laboratory Results - last 24 hr 09/03/18 09/03/18 07:20 07:20 CBC w Diff Auto diff final WBC 6.1 RBC 3.48 L Hgb 11.4 L Hct 33.6 L MCV 96.7 MCH 32.9 MCHC 34.0 RDW 14.1 Plt Count 176 MPV 7.7 Neut % (Auto) 72.5 H Lymph % (Auto) 14.1 [place] % (Auto) 9.4 H Eos % (Auto) 3.6 Baso % (Auto) 0.4 Neut # (Auto) 4.4 Lymph # (Auto) 0.9 L [place] # (Auto) 0.6 Eos # (Auto) 0.2 Baso # (Auto) 0.0 WBC Differential . Differential Comment . Sodium 133 L Potassium 3.6 Chloride 101 Carbon Dioxide 24.4 Anion Gap 8 BUN 4 L Creatinine 0.72 Estimated GFR Greater than 89 Random Glucose 90 Calcium 7.4 L* Calcium Adj for Albumin 8.9 Total Bilirubin 1.6 H AST 121 H ALT 164 H Alkaline Phosphatase 607 H Total Protein 5.6 L Albumin 2.1 L Amylase 447 H Lipase 8339 H Assessment and Plan - Plan Mr. Roque is a very pleasant 68-year-old male with a 1 year history of metastatic high-grade urothelial cell carcinoma of the bladder with liver, intra -abdominal cayetano, lung and bone metastases. He has progressed on first-line systemic therapy with cisplatin and gemcitabine and was initiated on palliative single agent immunotherapy with pembrolizumab in May 2018. He is status post 4 infusions with the most recent cycle delivered in mid July 2018. Response to therapy is not clear to me at this point based on evaluation of the most recent scans. The patient was referred to the emergency department on 08/30/2018 from the oncology clinic in [place] for further workup and management of epigastric burning abdominal pain. Upon evaluation patient was noted to have elevated AST and ALT levels as well as elevated alkaline phosphatase levels. Lipase levels have since then been noted to progressively rise from a presenting level of 3000 and now up to 8000 as of today. Serial imaging studies including CT imaging of the abdomen pelvis as well as MRI of the abdomen revealed no explanation for the abnormal enzymes. 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 Recommendations: 1. 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 Monitor liver function and lipase levels carefully. Should his numbers begin to improve I would advise discharge home on oral prednisone 1 mg/kg daily. 2. Metastatic urothelial cell carcinoma: Treatment will remain on hold until acute issues have been resolved. Should his LFTs improve with corticosteroids it would essentially establish the diagnosis of immunotherapy associated severe autoimmune hepatitis, in the setting future immunotherapy would be contraindicated. Will likely need to meet with his primary oncologist to discuss alternative lines of treatment. Thank you for asking me see this patient. Case discussed with the primary medical team. Diagnostic considerations and treatments discussed with the patient and his as well.
--- NOTE | 2018-09-03 14:31 | P.PNGI ---
Subjective Interval history: According to hematology/oncology consult the patient's elevation in lipase is secondary to his chemotherapy, Keytruda. The chemotherapy can induce an autoimmune pancreatitis. The patient remains asymptomatic. He understands the cause of the current problem. He is currently being treated with steroids per the oncology consultation Physical Exam Vital signs: Vital Signs 09/02/18 16:49 09/02/18 21:13 09/03/18 00:03 Temperature 98 F 97.8 F 98.9 F Pulse Rate 83 81 80 Respiratory Rate 20 20 18 Blood Pressure 136/79 154/85 H 146/91 H Pulse Oximetry 99 96 95 09/03/18 08:00 09/03/18 12:00 Temperature 96.7 F L 97.0 F L Pulse Rate 81 94 H Respiratory Rate 17 17 Blood Pressure 131/103 H 146/89 H Pulse Oximetry 98 96 Intake & Output 09/02/18 09/03/18 09/03/18 18:59 06:59 18:59 Intake Total 2460 / 2460 1240 / 1240 100 / 100 Output Total 200 / 200 Balance 2260 / 2260 1240 / 1240 100 / 100 Weight 60.9 kg Intake: IV 1000 / 1000 1000 / 1000 100 / 100 NS Inj 1,000 ML @ 100 mls/hr IV 1000 / 1000 1000 / 1000 .CONT .Q10H [facility] Rx#:[id number] Zosyn 4.5 GM Premix 4.5 gm In 100 / 100 100 ml @ 200 mls/hr IV.SIG Q6H [facility] Rx#:[id number] Oral 1460 / 1460 240 / 240 Output: Urine 200 / 200 Other: # Voids 4 4 Date of Last Bowel Movement 09/02/18 Narrative: General: Patient is a middle-aged/elderly male, he sitting up in bed, he appears to be no acute distress he has a somewhat disheveled appearance but appears to be cooperative and pleasant. HEENT: Head atraumatic normocephalic, conjunctivae are mildly pale, sclerae are anicteric, PERRLA, EOMI. Oral exam: No pharyngeal erythema, no ulceration no masses. Neck examination: No palpable cervical or supraclavicular adenopathy. Respiratory exam: On posterior examination: Good air movement bilaterally without any added breath sounds specifically rhonchi rales or crepitus. Cardiovascular: Regular rate and rhythm, S1-S2 no obvious murmurs rubs gallops. Good peripheral pulses. No pretibial edema no calf tenderness. Abdominal examination: Thin belly, soft, no palpable hepatosplenomegaly, positive bowel sounds, some epigastric tenderness. Muscular skeletal: Adequate muscle mass, tone and strength. No areas of tenderness. Skin examination: No skin lesions identified, no bruises no bleeding no rashes essentially nonfocal examination. LABORER BITUMINOUS PAVING: No focal sensorimotor deficits, 5 x 5 strength of the upper and lower extremities on flexion and extension. Psychiatric: Awake, alert x3, pleasant disposition, appropriate affect, has clear understanding of discussion today. Results - Labs CBC & Chem 7: 09/03/18 07:20 09/03/18 07:20 Laboratory Results - last 24 hr 09/03/18 09/03/18 07:20 07:20 CBC w Diff Auto diff final WBC 6.1 RBC 3.48 L Hgb 11.4 L Hct 33.6 L MCV 96.7 MCH 32.9 MCHC 34.0 RDW 14.1 Plt Count 176 MPV 7.7 Neut % (Auto) 72.5 H Lymph % (Auto) 14.1 [place] % (Auto) 9.4 H Eos % (Auto) 3.6 Baso % (Auto) 0.4 Neut # (Auto) 4.4 Lymph # (Auto) 0.9 L [place] # (Auto) 0.6 Eos # (Auto) 0.2 Baso # (Auto) 0.0 WBC Differential . Differential Comment . Sodium 133 L Potassium 3.6 Chloride 101 Carbon Dioxide 24.4 Anion Gap 8 BUN 4 L Creatinine 0.72 Estimated GFR Greater than 89 Random Glucose 90 Calcium 7.4 L* Calcium Adj for Albumin 8.9 Total Bilirubin 1.6 H AST 121 H ALT 164 H Alkaline Phosphatase 607 H Total Protein 5.6 L Albumin 2.1 L Amylase 447 H Lipase 8339 H Assessment and Plan (1) Acute pancreatitis Status: Acute Code(s): K85.90 - Acute pancreatitis without necrosis or infection, unspecified - Plan Patient presenting with abdominal pain is noted to have elevated liver function tests and elevated lipase suggesting pancreatitis We will obtain an MRCP this is still pending if it is positive for choledocholithiasis patient will have to be transferred to the main hospital for an ERCP Will continue to monitor labs they appear to be improving Recommend hydration and pain control Agree with current supportive measures Further recommendations she will depend on the above findings and hospital course 09/01/2018 patient is doing better no abdominal pain there was mild dilation of the intrahepatic ducts but no filling defects no stones no abnormality on the pancreas, questionable etiology for the pancreatitis could be medicine related versus passing small stone versus other etiologies such as autoimmune pancreatitis We will advance diet as tolerated, will repeat lipase and if he is doing better he can be discharged home September 03, 2018 patient continues to improve. He has no abdominal pain. The acute pancreatitis is secondary to his chemotherapy. MRCP was unrevealing. I will sign off the case. If I can be of further assistance please not hesitate to reconsult us
[2018-09-03] MEDS: MethylPREDNISolone Sod Succinate Inj 40 MG/ML Vial IV.PUSH SCH ×2 (15:30→21:01)
[2018-09-03] MEDS: Pantoprazole Inj 40 MG Vial IV.PUSH SCH (15:31)
[2018-09-04] MEDS: MethylPREDNISolone Sod Succinate Inj 40 MG/ML Vial IV.PUSH SCH ×2 (01:51→09:37)
[2018-09-04] MEDS: Heparin - SQ 10,000 UNITS/ML Vial SQ SCH (05:08)
[2018-09-04] MEDS: Piperacil/Tazo 4.5 GM Premix 4.5 GM/100 ML BAG IV.SIG SCH (05:44)
[2018-09-04] MEDS: Sod Chloride 0.9% Inj 1,000 ML IV.CONT SCH (06:16)
[2018-09-04 07:12] LABS: Chloride 100 meq/L (98-107); Potassium 3.8 meq/L (3.5-5.1); Sodium 133 meq/L (136-145)
[2018-09-04 07:14] LABS: Baso % (Auto) 0.3 % (0.0-2.0); Eos % (Auto) 0.1 % (0.0-4.0); Hemoglobin 10.7 gm/dL (13.0-17.0); Lymph # (Auto) 0.7 th/mm3 (1.0-4.8); Lymph % (Auto) 7.7 % (9.0-44.0); Mean Corpuscular HGB Conc 33.3 % (32.0-36.0); Mean Corpuscular Hemoglobin 32.4 pg (27.0-34.0); Mean Corpuscular Volume 97.2 fL (80.0-100.0); Mean Platelet Volume 8.1 fL (7.0-11.0); Mono # (Auto) 0.1 th/mm3 (0.0-0.9); Mono % (Auto) 1.1 % (0.0-8.0); Neut # (Auto) 7.7 th/mm3 (1.8-7.7); Neut % (Auto) 90.8 % (16.0-70.0); Platelet Count 162 th/mm3 (150-450); Red Blood Count 3.29 mil/mm3 (4.50-5.90); Red Cell Distribution Width 13.9 % (11.6-17.2); White Blood Count 8.5 th/mm3 (4.0-11.0)
[2018-09-04 07:22] LABS: Calcium 7.5 mg/dL (8.5-10.1)
[2018-09-04 07:23] LABS: Albumin 2.2 g/dL (3.4-5.0); Anion Gap 6 meq/L (5-15); Blood Urea Nitrogen 5 mg/dL (7-18); Carbon Dioxide 27.2 meq/L (21.0-32.0); Glucose,Random 135 mg/dL (74-106)
[2018-09-04 07:26] LABS: Alanine Aminotransferase 183 U/L (12-78); Aspartate Aminotransferase 110 U/L (15-37); Glomerular Filtration Rate Greater Than 89 mL/min (>89)
[2018-09-04 07:28] LABS: Total Protein 5.8 g/dL (6.4-8.2)
[2018-09-04 07:29] LABS: Alkaline Phosphatase 549 U/L (45-117); Lipase 3551 U/L (73-393)
[2018-09-04] MEDS: Senna/Docusate Sodium 8.6/50 MG Tablet PO SCH (09:36)
[2018-09-04] MEDS: Sucralfate 1 GM Tablet PO SCH (09:36)
--- NOTE | 2018-09-04 10:00 | P.DS ---
DS: Providers Date of admission: 08/30/18 14:26 Primary care physician: Yunier Joseph MD Consults: 08/30/18 14:33 Consult to Gastroenterology Routine Consulting Provider: Madi Pollack Reason for Consultation: A pancreatitis with transaminits Notified:: Office Spoke with:: Gisselle Date Notified:: 08/30/18 Time Notified:: 15:08 Ordering Provider: KIMBERLEY 08/31/18 15:26 HUB Only Consult Order Routine Consulting Provider: Sherrell Wynne 09/03/18 09:09 Consult to Oncology Routine Consulting Provider: Lanre Martin Reason for Consultation: worsening pancreatitis on Keytruda Notified:: Service Spoke with:: Brittany Date Notified:: 09/03/18 Time Notified:: 09:30 Ordering Provider: MAY Brief History from admission: This is a 68-year-old male patient with a known medical history of 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 Supposedly patient was at his oncologist office, Dr. Onofre, who recommended patient come to ED for evaluation of a 7-day complaint of abdominal pain with nausea and vomiting. Patient states that he had a CT scan on 08/28/18 and reviewed by ED physician showing progression of lung nodule and persistent soft tissue density in bladder with nonspecific focal lucency in the left ilium unchanged from prior readings. No distinct mass in pancreas. Patient states that he has been unable to eat or drink for the last 2 days, prior to this he was doing quite well and actually gained 7 pounds. He states that the abdominal pain is midepigastric, burning and feels like reflux in nature, rated a 7 out of 10 at its worst on pain scale. Denies any recent diarrhea or black or bloody stools. Last bowel movement was 2 days ago which was reportedly unremarkable. Denies any recent NSAID use. Denies a history of a colonoscopy or EGD. 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 Denies any fevers, chills, headache, chest pain, diarrhea or dysuria. DS: Diagnosis Discharge Diagnosis (1) Acute pancreatitis: Status: Acute DS: Summary This is a 68-year-old male patient with a known medical history of urothelial cancer with metastases to the lungs, bone and retroperitoneum who presented to the ED with complaints of abdominal pain times 7 days as well as nausea and vomiting. Patient complaints of a 7-day history of abdominal pain as well as nausea and vomiting. Lipase over 3000 on presentation. Lipase actually trended up to 8900 during hospitalization. 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 CT abdomen/pelvis 2 days ago was reviewed outpatient did not show any acute findings. Repeat CT on 09/02 showing developing interim colitis. Patient has absolute no symptoms. No pain. No diarrhea. Also shows some right pyelonephritis without any symptoms. Creatinine and GFR normal. Urinating well. UA negative. Spoke with urologist who states that his may be secondary to bladder CA and would not do any intervention at this time without symptoms. Will continue to monitor. Gastroenterology consulted and followed patient during hospitalization. MRCP ordered without significant findings. On discharge patient is tolerating p.o. intake well. LFTs are trending down nicely as well as a lipase. 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 He will be followed in the office. He was started on IV steroids and given prednisone p.o. on discharge. Patient will be discharged home to follow-up with PCP as well as oncologist. Rx is written. Diet as tolerated. Activity as tolerated. Patient is stable and agreeable to plan. Time Spent with Patient Total time spent providing and/or coordinating discharge services: Greater than 30 minutes Quality: VTE Deep Vein Thrombosis/Pulmonary Embolism Present on Admission: No Exam Const General: cooperative and no acute distress Orientation: alert, awake and oriented x3 Resp Effort & Inspection: normal respiratory effort and able to speak in complete sentences Auscultation: clear to auscultation bilaterally Cardio Rate: regular rate Rhythm: regular rhythm Heart Sounds: S1 normal and S2 normal Neuro General: alert, awake and oriented x3 Results Labs on day of discharge: Labs from last 24 hours 09/04/18 09/04/18 06:25 06:25 CBC w Diff Auto diff final WBC 8.5 RBC 3.29 L Hgb 10.7 L Hct 32.0 L MCV 97.2 MCH 32.4 MCHC 33.3 RDW 13.9 Plt Count 162 MPV 8.1 Neut % (Auto) 90.8 H Lymph % (Auto) 7.7 L [place] % (Auto) 1.1 Eos % (Auto) 0.1 Baso % (Auto) 0.3 Neut # (Auto) 7.7 Lymph # (Auto) 0.7 L [place] # (Auto) 0.1 Eos # (Auto) 0.0 Baso # (Auto) 0.0 WBC Differential . Differential Comment . Sodium 133 L Potassium 3.8 Chloride 100 Carbon Dioxide 27.2 Anion Gap 6 BUN 5 L Creatinine 0.74 Estimated GFR Greater than 89 Random Glucose 135 H Calcium 7.5 L Total Bilirubin 1.1 H AST 110 H ALT 183 H Alkaline Phosphatase 549 H Total Protein 5.8 L Albumin 2.2 L Lipase 3551 H Impressions ITS Impressions Cholangiopancreatography MRI 08/31/18 00:00 CONCLUSION: 1. Mild extra hepatic biliary ductal dilatation without clear etiology. 2. Minimal pericholecystic fluid Abdomen/Pelvis CT 09/02/18 00:00 CONCLUSION: 1. Distal right ureteral obstruction is again noted and not significantly changed but some perinephric edema has developed around the right kidney. This is nonspecific but could be indicative of developing right-sided pyelonephritis. 2. Apparent interim development of colitis in the region of the hepatic flexure and proximal transverse colon. An infectious or inflammatory etiology is possible; alternatively, this may be reactive secondary to the adjacent right renal inflammatory changes. 3. I don't clearly see any inflammatory changes centered around the pancreas. Pancreatic parenchyma enhances normally. Discharge Plan Discharge Disposition Patient Disposition: 01 Discharge Home Discharge Order Discharge Orders: Discharge Order (Routine); Ordered 09/04/18 Ordered By: Lesa Khan Discharge Details Anticipated Discharge Date: 09/04/18 Physicians Team ED Provider: Neelam Damico Primary Care Provider: Yunier Joseph Attending Provider: David Romero Other Providers: Madi Pollack ; Sherrell Wynne ; Lanre Martin ; Bridger Red Rxs /Orders / Referrals /Forms Prescriptions: New prednisolone sodium phosphate 30 mg tablet,disintegrating 30 mg PO DAILY Qty: 14 RF: 0 Continue tamsulosin [Flomax] 0.4 mg Capsule,Extended Release 24hr 0.4 mg PO HS RF: 0 Tylenol 1,000 mg BID RF: 0 cetirizine 10 mg Tablet 10 mg PO HS RF: 0 ondansetron HCl 8 mg Tablet 8 mg PO DIRECTED PRN (Reason: Nausea And Vomiting) RF: 0 sennosides-docusate sodium 8.6-50 mg Tablet 1 tab PO DAILY RF: 0 cholecalciferol (vitamin D3) 5,000 unit Capsule 5,000 unit PO DAILY RF: 0 bisacodyl 5 mg HS RF: 0 Ambulatory Orders / Order Sets / DME: Hepatic Function Panel (Routine) Location: Determined by Patient Ordered By: Lesa Khan Referrals: Yunier Joseph MD [Primary Care Provider] - See Instructions George Martin MD [Physician] - 09/11/18 12:00 am Status ED Status: Left Department Discharge Information Discharge Date/Time: 09/04/18 11:59
== END 2018-09-04 11:59 | disposition home or self-care (01) | DRG 439 ==
LOC: PHED 11:12 → PHEDA 14:26 → PH3 15:45
PROVIDERS: ADMIT Hospitalist; ATTEND Hospitalist
DX: C78.00 Secondary malignant neoplasm of unspecified lung; R10.9 Unspecified abdominal pain; T45.1X5A Adverse effect of antineoplastic and immunosuppressive drugs, initial encounter; F17.210 Nicotine dependence, cigarettes, uncomplicated; C79.51 Secondary malignant neoplasm of bone; D64.9 Anemia, unspecified; C67.9 Malignant neoplasm of bladder, unspecified; C78.7 Secondary malignant neoplasm of liver and intrahepatic bile duct; K85.30 Drug induced acute pancreatitis without necrosis or infection; Z79.01 Long term (current) use of anticoagulants; Z86.718 Personal history of other venous thrombosis and embolism; C77.2 Secondary and unspecified malignant neoplasm of intra-abdominal lymph nodes; K75.4 Autoimmune hepatitis; E87.1 Hypo-osmolality and hyponatremia; Z79.899 Other long term (current) drug therapy; N12 Tubulo-interstitial nephritis, not specified as acute or chronic
CPT/HCPCS: 74177; 74181; 76377; 80053; 81001; 82150; 82784; 82787; 83690; 85025; 99212; 99214; 99285; C9113; G0463; J1644; J2270; J2405; J2543; J2920; J2930; J7030; Q9967